=== PATIENT | female | born 1950 | race African-American/Black ===

== ENCOUNTER 2020-12-23 23:03 | Emergency (ER) | payer OTHER ==
--- NOTE | 2020-12-24 00:27 | ER ---
Nurse's Notes [facility] Name: Pari Nicole Age: 70 yrs Sex: Female : 1950 Arrival Date: 12/23/2020 Time: 23:06 Bed 13 Private MD: Diagnosis: Strain of muscle, fascia and tendon at neck level;Essential (primary) hypertension Presentation: 12/23 09:00 Onset of symptoms was December 23, 2020. dc2 23:19 Chief complaint: Patient states: pt states she has been feeling like her BP is elevated bb intermittently today it was in the 160s systolic she has been feeling like she is throbbing all over. Coronavirus screen: At this time, the client does not indicate any symptoms associated with coronavirus-19. Ebola Screen: No symptoms or risks identified at this time. Initial Sepsis Screen: Does the patient meet any 2 criteria? No. Patient's initial sepsis screen is negative. Does the patient have a suspected source of infection? No. Patient's initial sepsis screen is negative. 23:19 Method Of Arrival: Ambulatory bb 23:30 Acuity: YELENA 4 dc2 23:30 Risk Assessment: Do you want to hurt yourself or someone else? Patient reports no dc2 desire to harm self or others. 12/24 03:48 Onset of symptoms was December 23, 2020 at 09:00. Activity prior to arrival: Pt woke up dc2 with neck pain, thinks she slept on it wrong. Triage Assessment: 12/23 23:30 General: Behavior is. dc2 12/24 00:10 Pain:. 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 - Social history:: Smoking status: Patient denies any tobacco usage or history of. Screenin:30 Abuse screen: Denies threats or abuse. Denies injuries from another. Nutritional dc2 screening: No deficits noted. Tuberculosis screening: No symptoms or risk factors identified. Fall Risk None identified. No fall in past 12 months (0 pts). Assessment: 23:30 General: Appears in no apparent distress. comfortable, well groomed, Laughing and dc2 talking with female at side. . 23:30 Pain: Denies pain. Neuro: No deficits noted. Denies blurred vision numbness headache dc2 photophobia. Cardiovascular: No deficits noted. Heart tones present Capillary refill fingers. Respiratory: No deficits noted. Breath sounds are clear bilaterally. GI: No deficits noted. No signs and/or symptoms were reported involving the gastrointestinal system. Bowel sounds present X 4 quads. : No signs and/or symptoms were reported regarding the genitourinary system. Derm: No deficits noted. No signs and/or symptoms reported regarding the dermatologic system. Musculoskeletal: No deficits noted. No signs and/or symptoms reported regarding the musculoskeletal system. 23:50 Reassessment: When making rounds, pt co right sided neck pain ( first of hearing this ) dc2 states thinks she slept on it wrong way and has been sore. NO OTC meds attempted. 12/24 00:25 Reassessment: Patient is alert, oriented x 3, equal unlabored respirations, skin bb warm/dry/pink. pt states she is feeling better the pain in her neck has gone from a 10 to a 5. Vital Signs: 12/23 23:19 BP 162 / 86; Pulse 76; Resp 16 S; Temp 98.6(O); Pulse Ox 99% on R/A; Weight 89.81 kg bb (R); Height 5 ft. 6 in. (167.64 cm) (R); Pain 0/10; 12/24 00:30 BP 146 / 81; Pulse 56; Resp 17; Pulse Ox 100% on R/A; Pain 3/10; dc2 12/23 23:19 Body Mass Index 31.96 (89.81 kg, 167.64 cm) ED Course: 12/23 23:06 Patient arrived in ED. bp1 23:21 Arm band placed on Patient placed in an exam room, on a stretcher. EKG completed in triage. Results shown to MD. 23:30 Kendal Mclaughlin MD is Attending Physician. sp3 23:30 Aysha Yo RN is Primary Nurse. dc2 23:30 Patient has correct armband on for positive identification. Bed in low position. Call dc2 light in reach. Side rails up X 1. 12/24 00:45 No provider procedures requiring assistance completed. dc2 00:45 Patient did not have IV access during this emergency room visit. dc2 00:55 Triage completed. dc2 Administered Medications: 00:13 Drug: Ketorolac 60 mg Route: IM; Site: left gluteus; bb 00:25 Follow up: Response: No adverse reaction; Pain is decreased bb 00:47 Follow up: Response: Pain is decreased dc2 Outcome: 00:27 Discharge ordered by . sp3 00:45 Discharged to home ambulatory. dc2 00:45 Condition: stable 00:45 Discharge instructions given to patient, Instructed on discharge instructions, follow up and referral plans. Demonstrated understanding of instructions, follow-up care, medications, Prescriptions given X 1. 00:55 Patient left the ED. dc2 Signatures: Bella Veronica RN RN bb Porsche Huffman Setul, MD MD sp3 Aysha Yo RN RN dc2 Corrections: (The following items were deleted from the chart) 03:42 03:42 No provider procedures requiring assistance completed. dc2 dc2
--- NOTE | 2020-12-24 00:27 | EDPHYS ---
Physician Documentation [facility] Name: Pari Nicole Age: 70 yrs Sex: Female : 1950 Arrival Date: 12/23/2020 Time: 23:06 Bed 13 Private MD: ED Physician Kendal Mclaughlin HPI: 12/24 00:15 This 70 yrs old Black Female presents to ER via Ambulatory with complaints of High sp3 Blood Pressure. 00:15 62-year-old female who presents to the ED for right-sided sternocleidomastoid neck pain sp3 from "sleeping on it wrong" and elevated blood pressure to 160 systolic this morning prior to arrival. Patient has no headache, neck pain, chest pain, shortness of breath, back pain, abdominal pain, nausea, vomiting, diarrhea, syncope, neurological symptoms, known sick contacts, fever, URI symptoms, any other review of systems at this time. Remainder of ROS are negative. Neck muscle pain is worse when she moves her neck.. 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 - Social history:: Smoking status: Patient denies any tobacco usage or history of. ROS: 12/24 00:16 Constitutional: Negative for fever, chills, and weight loss, Eyes: Negative for injury, sp3 pain, redness, and discharge, ENT: Negative for injury, pain, and discharge, Cardiovascular: Negative for chest pain, palpitations, and edema, Respiratory: Negative for shortness of breath, cough, wheezing, and pleuritic chest pain, Abdomen/GI: Negative for abdominal pain, nausea, vomiting, diarrhea, and constipation, Back: Negative for injury and pain, MS/Extremity: Negative for injury and deformity, Skin: Negative for injury, rash, and discoloration, Neuro: Negative for headache, weakness, numbness, tingling, and seizure, Psych: Negative for depression, anxiety, suicide ideation, homicidal ideation, and hallucinations, Allergy/Immunology: Negative for hives, rash, and allergies, Hematologic/Lymphatic: Negative for swollen nodes, abnormal bleeding, and unusual bruising. All other systems are negative. Exam: 00:17 Constitutional: This is a well developed, well nourished patient who is awake, alert, sp3 and in no acute distress. Head/Face: Normocephalic, atraumatic. Eyes: Pupils equal round and reactive to light, extra-ocular motions intact. Lids and lashes normal. Conjunctiva and sclera are non-icteric and not injected. Cornea within normal limits. Periorbital areas with no swelling, redness, or edema. Chest/axilla: Normal chest wall appearance and motion. Nontender with no deformity. No lesions are appreciated. Cardiovascular: Regular rate and rhythm with a normal S1 and S2. No gallops, murmurs, or rubs. Normal PMI, no JVD. No pulse deficits. Respiratory: Lungs have equal breath sounds bilaterally, clear to auscultation and percussion. No rales, rhonchi or wheezes noted. No increased work of breathing, no retractions or nasal flaring. Abdomen/GI: Soft, non-tender, with normal bowel sounds. No distension or tympany. No guarding or rebound. No evidence of tenderness throughout. Back: No spinal tenderness. No costovertebral tenderness. Full range of motion. Skin: Warm, dry with normal turgor. Normal color with no rashes, no lesions, and no evidence of cellulitis. MS/ Extremity: Pulses equal, no cyanosis. Neurovascular intact. Full, normal range of motion. Neuro: Awake and alert, GCS 15, oriented to person, place, time, and situation. Cranial nerves II-XII grossly intact. Motor strength 5/5 in all extremities. Sensory grossly intact. Cerebellar exam normal. Normal gait. Psych: Awake, alert, with orientation to person, place and time. Behavior, mood, and affect are within normal limits. 00:17 Neck: Patient has pain to the trapezius muscle and posterior aspect of the sternocleidomastoid muscle. No carotid bruit or pulse deficit is noted.. 00:26 ECG was reviewed by the Attending Physician. EKG demonstrates normal sinus rhythm at 60 sp3 bpm with normal intervals normal QRS normal axis nonspecific ST/T changes with inferior T wave in lead III isolated without evidence of ischemia. Vital Signs: 12/23 23:19 BP 162 / 86; Pulse 76; Resp 16 S; Temp 98.6(O); Pulse Ox 99% on R/A; Weight 89.81 kg bb (R); Height 5 ft. 6 in. (167.64 cm) (R); Pain 0/10; 12/24 00:30 BP 146 / 81; Pulse 56; Resp 17; Pulse Ox 100% on R/A; Pain 3/10; dc2 12/23 23:19 Body Mass Index 31.96 (89.81 kg, 167.64 cm) bb MDM: 00:06 Patient medically screened. sp3 00:17 Data reviewed: vital signs, nurses notes. ED course: Will obtain EKG and administer sp3 ketorolac 60 mg IM. I am not highly suspicious for acute coronary syndrome, pneumonia, pulmonary embolism, pneumothorax, thoracic dissection, any other critical thoracic or cervical issue. Blood pressure is already at 148/80 without any intervention. Patient to follow-up with PCP regarding her hypertension.. 12/23 23:54 Order name: EKG; Complete Time: 23:55 bb 12/23 23:54 Order name: EKG - Nurse/Tech; Complete Time: 00:25 bb Administered Medications: 00:13 Drug: Ketorolac 60 mg Route: IM; Site: left gluteus; bb 00:25 Follow up: Response: No adverse reaction; Pain is decreased bb 00:47 Follow up: Response: Pain is decreased dc2 Disposition Summary: 12/24/20 00:27 Discharge Ordered Location: Home sp3 Condition: Stable sp3 Diagnosis - Strain of muscle, fascia and tendon at neck level sp3 - Essential (primary) hypertension sp3 Discharge Instructions: - Discharge Summary Sheet sp3 - Hypertension, Adult sp3 - Muscle Strain sp3 Forms: - Medication Reconciliation Form sp3 - Thank You Letter sp3 - Antibiotic Education sp3 - Prescription Opioid Use sp3 Prescriptions: - Mobic 7.5 mg Oral Tablet - take 1 tablet by ORAL route once daily take with food; 20 tablet; Refills: 0, sp3 Product Selection Permitted Signatures: Bella Veronica RN RN bb Kendal Mclaughlin MD MD sp3 Srinath, Aysha MARIE dc2
[2020-12-24] MEDS ORDERED: KETOROLAC 30 MG/ML INJ ONE (01:07)
[2020-12-24 01:37] VITALS: TEMP 98.6
[2020-12-24 01:39] VITALS: BP 146/81; O2SAT 100
--- OUTSIDE RECORDS SUMMARY | 2021-01-05 03:55 | XMS REPORT | Continuity of Care Document ---
:1950 Author Organization [facility] t Address [address] [place] [address] Care Team Providers Name Role Phone Anil PABLO, A Primary Care Physician Krys Shoemaker Attending Clinician Unavailable Cyndi MA Attending Clinician Unavailable Anil PABLO, A Attending Clinician ANATOLY ISBELL Attending Clinician Unavailable Nurse, Pob Immunization Attending Clinician Unavailable Anatoly Isbell DO Attending Clinician Lab, - Db Attending Clinician Unavailable Fara Perdomo MD Attending Clinician Doctor Unassigned, Name Attending Clinician Unavailable FARA PERDOMO Attending Clinician Unavailable Krys Shoemaker Admitting Clinician Unavailable Payers Payer Name Policy Type Policy Number Effective Date Expiration Date S ource [employer] MEDICARE PPO [id number] 2017 00:00:00 Problems Condition Condition Condition Status Onset Resolution Last Treating Co mments Source Name Details Category Date Date Treatment Clinician Date Primary Primary Disease Active Last [facility] osteoarthr osteoarthr 8-24 [facility] itis of itis of 00:00: t & Plan: both knees both knees 00 Formattin g of this note might be different from the original. Referred to Dr. Ortez for evaluatio n for left total knee arthropla sty. Patient verbalize qamar edward. Acute pain Acute pain Disease Active Last U T of left of left 09-18 [facility] h knee knee 00:00: t & Plan: 00 Formattin g of this note might be different from the original. Insert patient is applied bupivacai ne 0.5% 3 mL with 80 mg/mL of methylpre dnisolone which was also patient's applied based on her previous medicatio n that she has found that has done well for her. Follow-up as needed. Prinzmetal Prinzmetal Disease Active [facility] Allergic Allergic Disease Active [facility] Anxiety Anxiety Disease Active Univers [facility] Hypertensi Hypertensi Disease Active U nivers on on [facility] Localized Localized Problem Active Uni vers osteoarthr osteoarthr it y of itis of [facility] both knees both knees Ph ysici ans Edema Edema Problem Active Univers y [facility] Physici ans Swelling Swelling Problem Active [facility] Allergies, Adverse Reactions, Alerts Allergy Allergy Status Severity Reaction(s) Onset Inactive Treating Comm ents Source Name Type Date Date Clinician Adhesive Drug Active Unknown 2018-02 [facility] Tape Allergy 03-27 Health 00:00: 00 No Known DA Active U 2006-02 [facility] Contrast [place] Allergie 00:00: Orthope [facility] 00 dic [facility] No Known DA Active U 2006-02 [facility] Drug [place] Allergie 00:00: Orthope s 00 dic Hospita [facility] No Known DA Active U 2006-02 [facility] Food [place] Allergie 00:00: Orthope s 00 dic Hospita l No Known DA Active U 2006-02 [facility] Other [place] Allergie 00:00: Orthope s 00 dic Hospita l No Known DA Active U 2002-02 [facility] Drug 0- [place] Intolera 00:00: Orthope nces 00 dic Hospita l NO KNOWN Drug Active Univers ALLERGIE Class ity [facility] Family History Family Member Diagnosis Comments Start Date Stop Date Source Father [facility] Phys[facility] ns Father Family history of Univers ity [facility] hypertension Physicians Father Family history of Univers ity of [place] myocardial infarction Phy sicians Social History Social Habit Start Date Stop Date Quantity Comments Source Exposure to Not sure University of SARS-CoV-2 [place] [facility] (event) Branch History Replaced by [facility] Alcohol Std Drinks History Replaced by [facility] Alcohol Binge Tobacco use and 2020-10-16 2020-10-16 Never used [facility] exposure 00:00:00 00:00:00 Alcohol intake 2020-10-16 2020-10-16 Lifetime [facility] 00:00:00 00:00:00 non-drinker (finding) History [facility] 2020-09-18 2020-09-18 1 [facility] Alcohol Frequency 00:00:00 00:00:00 Sex [birth year] [facility] 00:00:00 00:00:00 Smoking Status Start Date Stop Date Source Never smoker [facility] Medications Ordered Filled Start Stop Current Ordering Indication Dosage Frequency Signature Comments Components Source Medication Medication Date Date Medication? Clinician (SIG) Name Name nitroglycer 2020-[address] 0[address]4 U nivers in 0.4 mg 0-25 mg under ity of sublingual 15:33: the tongue [place] tablet 54 every 5 Medical (five) Branch minutes as needed for Chest pain. nitroglycer 2020-[address] 0.4 U nivers in 0.4 mg 0-25 mg under ity of sublingual 15:33: the tongue [place] tablet 54 every 5 Medical (five) Branch minutes as needed for Chest pain. nitroglycer 2020-[address] 0.4 U nivers in 0.4 mg 0-25 mg under ity of sublingual 15:33: the tongue [place] tablet 54 every 5 Medical (five) Branch minutes as needed for Chest pain. nitroglycer 2020-[address] 0.4 U nivers in 0.4 mg 0-25 mg under ity of sublingual 15:33: the tongue [place] tablet 54 every 5 Medical (five) Branch minutes as needed for Chest pain. nitroglycer 2020-[address] 0.4 U nivers in 0.4 mg 0-25 mg under ity of sublingual 15:33: the tongue [place] tablet 54 every 5 Medical (five) Branch minutes as needed for Chest pain. losartan 50 2020-02 Yes Univer s mg tablet 0-19 ity of 00:00: Medical Branch losartan 50 2020-02 Yes Univer s mg tablet 0-19 ity of 00:00: Medical Branch losartan 50 2020-02 Yes Univer s mg tablet 0-19 ity of 00:00: Medical Branch losartan 50 2020-02 Yes Univer s mg tablet 0-19 ity of 00:00: Medical Branch losartan 50 2020-02 Yes Univer s mg tablet 0-19 ity of 00:00: Medical Branch metoprolol 2020-0 Yes 1{tbl} Take 1 [facility] tartrate 7-27 tablet by Health (Lopressor) 19:55: mouth. 100 MG 04 tablet metoprolol 2020-0 Yes 1{tbl} Take 1 [place] tartrate 7-27 tablet by Health (Lopressor) 19:55: mouth. 100 MG 04 tablet olmesartan 2020-0 Yes 20mg Take 20 mg U nivers 20 mg 6-28 by mouth ity of tablet 00:00: daily. [facility] olmesartan 2020-0 Yes 20mg Take 20 mg U nivers 20 mg 6-28 by mouth ity of tablet 00:00: daily. [facility] olmesartan 2020-0 Yes 20mg Take 20 mg U nivers 20 mg 6-28 by mouth ity of tablet 00:00: daily. [facility] olmesartan 2020-0 Yes 20mg Take 20 mg U nivers 20 mg 6-28 by mouth ity of tablet 00:00: daily. [facility] olmesartan 2020-0 Yes 20mg Take 20 mg U nivers 20 mg 6-28 by mouth ity of tablet 00:00: daily. [address] olmesartan 1-0 Yes 20mg QD Take 20 mg U T (BENIcar) 6-28 by mouth 1 Heal th 20 MG 00:00: (one) time tablet 00 each day. olmesartan 2020-0 Yes 20mg QD Take 20 mg U T (BENIcar) 6-28 by mouth 1 Heal th 20 MG 00:00: (one) time tablet 00 each day. triamcinolo Yes [id number] Apply to Univers ne 0.025 % 3-11 area(s) 2 ity of cream 00:00: (two) [place] 00 times Medical daily. Branch fluticasone Yes [id number] 2{spray Use 2 Univers propionate 3-11 } Sprays in ity of 50 00:00: each [place] mcg/actuati 00 nostril Medic al on nasal daily. Branch spray loratadine Yes [id number] 10mg Take 1 U nivers 10 mg 3-11 tablet by ity of tablet 00:00: mouth [place] 00 daily. Medical Branch triamcinolo Yes [id number] Apply to Univers ne 0.025 % 3-11 area(s) 2 ity of cream 00:00: (two) [place] 00 times Medical daily. Branch fluticasone Yes [id number] 2{spray Use 2 Univers propionate 3-11 } Sprays in ity of 50 00:00: each [place] mcg/actuati 00 nostril Medic al on nasal daily. Branch spray loratadine Yes [id number] 10mg Take 1 U nivers 10 mg 3-11 tablet by ity of tablet 00:00: mouth [place] 00 daily. Medical Branch triamcinolo Yes [id number] Apply to Univers ne 0.025 % 3-11 area(s) 2 ity of cream 00:00: (two) [place] 00 times Medical daily. Branch fluticasone Yes [id number] 2{spray Use 2 Univers propionate 3-11 } Sprays in ity of 50 00:00: each [place] mcg/actuati 00 nostril Medic al on nasal daily. Branch spray loratadine Yes [id number] 10mg Take 1 U nivers 10 mg 3-11 tablet by ity of tablet 00:00: mouth [place] 00 daily. Medical Branch triamcinolo Yes [id number] Apply to Univers ne 0.025 % 3-11 area(s) 2 ity of cream 00:00: (two) [place] 00 times Medical daily. Branch fluticasone Yes [id number] 2{spray Use 2 Univers propionate 3-11 } Sprays in ity of 50 00:00: each [place] mcg/actuati 00 nostril Medic al on nasal daily. Branch spray loratadine Yes [id number] 10mg Take 1 U nivers 10 mg 3-11 tablet by ity of tablet 00:00: mouth 00 daily. Medical Branch triamcinolo Yes [id number] Apply to Univers ne 0.025 % 3-11 area(s) 2 ity of cream 00:00: (two) [place] 00 times Medical daily. Branch fluticasone Yes [id number] 2{spray Use 2 Univers propionate 3-11 } Sprays in ity of 50 00:00: each [place] mcg/actuati 00 nostril Medic al on nasal daily. Branch spray loratadine Yes [id number] 10mg Take 1 U nivers 10 mg 3-11 tablet by ity of tablet 00:00: mouth [place] 00 daily. Medical Branch metoprolol Yes TK 1 T PO Un breonna succinate 9-04 D. ity of XL 100 mg 00:00: [place] 24 hr 00 Medical tablet Branch metoprolol Yes TK 1 T PO Un breonna succinate 9-04 D. ity of XL 100 mg 00:00: [place] 24 hr Medical tablet Branch metoprolol Yes TK 1 T PO Un breonna succinate 9-04 D. ity of XL 100 mg 00:00: [place] 24 hr Medical tablet Branch metoprolol Yes TK 1 T PO Un breonna succinate 9-04 D. ity of XL 100 mg 00:00: [place] 24 hr Medical tablet Branch metoprolol Yes TK 1 T PO Un breonna succinate 9-04 D. ity of XL 100 mg 00:00: [place] 24 hr Medical tablet Branch Metoprolol Metoprolol 2014-02 Yes JUAN DAVID 1 QD TAKE 1 Univers Succinate Succinate 0-20 RICHEY-BAR TABLET ity of ER 50 MG ER 50 MG 00:00: RE M.D. DAILY. [place] Oral Tablet Oral Tablet 00 P hysici Extended Extended ans Release 24 Release 24 Hour Hour Premarin Premarin 2014-02 Yes JUAN DAVID 1 QD TAKE 1 Un breonna 0.9 MG Oral 0.9 MG Oral 0-20 RICHEY-BAR TABLET ity of Tablet Tablet 00:00: [place] M.[place]. [place]ILY. [place] 00 Physici ans Monovisc 88 Monovisc 88 Yes JUAN DAVID Inject one Univers MG/4ML MG/4ML 11-03 RICHEY-BAR dose ity o f Intra-artic Intra-artic 00:00: RE [place] lu 00 Physici Solution Solution ans Prefilled Prefilled Syringe Syringe Immunizations Ordered Filled Immunization Date Status Comments [facility] e Immunization Name Name SARS-COV-2 COVID-19 2020-12-25 Completed Unive rsity of MODERNA BOOSTER 00:00:00 [facility] VACCINE Branch SARS-COV-2 COVID-19 2020-12-25 Completed Unive rsity of MODERNA BOOSTER 00:00:00 [facility] VACCINE Branch Influenza High Dose 2020-10-24 Completed Unive rsity of 00:00:00 [facility] Influenza High Dose 2020-10-24 Completed Unive rsity of 00:00:00 [facility] Influenza High Dose 2020-10-24 Completed Unive rsity of 00:00:00 [facility] Influenza High Dose 2020-10-24 Completed Unive rsity of 00:00:00 [facility] Influenza High Dose 2020-10-24 Completed Unive rsity of 00:00:00 [facility] SARS-COV-2 COVID-19 2020-04-28 Completed Unive rsity of MODERNA VACCINE 00:00:00 [facility] SARS-COV-2 COVID-19 2020-04-28 Completed Unive rsity of MODERNA VACCINE 00:00:00 [facility] SARS-COV-2 COVID-19 2020-04-28 Completed Unive rsity of MODERNA VACCINE 00:00:00 [facility] Branch SARS-COV-2 COVID-19 2020-04-28 Completed Unive rsity of MODERNA VACCINE 00:00:00 [facility] SARS-COV-2 COVID-19 2020-04-28 Completed Unive rsity of MODERNA VACCINE 00:00:00 [facility] SARS-COV-2 COVID-19 2020-03-31 Completed Unive rsity of MODERNA VACCINE 00:00:00 [facility] SARS-COV-2 COVID-19 2020-03-31 Completed Unive rsity of MODERNA VACCINE 00:00:00 [facility] SARS-COV-2 COVID-19 2020-03-31 Completed Unive rsity of MODERNA VACCINE 00:00:00 [facility] SARS-COV-2 COVID-19 2020-03-31 Completed Unive rsity of MODERNA VACCINE 00:00:00 [facility] SARS-COV-2 COVID-19 2020-03-31 Completed Unive rsity of MODERNA VACCINE 00:00:00 [facility] Pneumococcal 13 2018-11-09 Completed Universit y of Conjugate, PCV13 00:00:00 [facility] dical (Prevnar 13) Branch Zoster Vaccine 2018-11-09 Completed University of Recombinant 00:00:00 [facility] Pneumococcal 13 2018-11-09 Completed Universit y of Conjugate, PCV13 00:00:00 [facility] dical (Prevnar 13) Branch Zoster Vaccine 2018-11-09 Completed University of Recombinant 00:00:00 [facility] Pneumococcal 13 2018-11-09 Completed Universit y of Conjugate, PCV13 00:00:00 [facility] dical (Prevnar 13) Branch Zoster Vaccine 2018-11-09 Completed University of Recombinant 00:00:00 [facility] Pneumococcal 13 2018-11-09 Completed Universit y of Conjugate, PCV13 00:00:00 [facility] dical (Prevnar 13) Branch Zoster Vaccine 2018-11-09 Completed University of Recombinant 00:00:00 [facility] Pneumococcal 13 2018-11-09 Completed Universit y of Conjugate, PCV13 00:00:00 [facility] dical (Prevnar 13) Branch Zoster Vaccine 2018-11-09 Completed University of Recombinant 00:00:00 [facility] Vital Signs Vital Name Observation Time Observation Value Comments Source Systolic blood 2020-12-17 20:33:00 144 mm[Hg] Univer sity of [facility] Diastolic blood 2020-12-17 20:33:00 80 mm[Hg] Unive rsity of [facility] Heart rate 2020-12-17 20:33:00 73 /min [facility] Body height 2020-12-17 20:32:00 165.1 cm [facility] Body weight 2020-12-17 20:32:00 91.627 kg [facility] BMI 2020-12-17 20:32:00 33.61 kg/m2 [facility] Oxygen saturation 2020-12-17 20:32:00 98 /min [facility] in Arterial blood Medical Br anch by Pulse oximetry Procedures Procedure Date / Time Performing Clinician Source Performed SARS-COV-2 COVID-19 2020-12-25 14:11:49 Doctor Unassigned, [facility] VACCINE BOOSTER,0.25ML,IM [place] Medica l Branch (MODERNA) CBC (H/H, RBC, 2020-12-24 13:04:00 Ling Ma [facility] INDICES,$WBC, PLT)-Q Medical [facility] [place] ARTHROCENTESIS 2020-09-18 20:10:23 Pan Lee [place] He alth ASPIR&/INJ MAJOR JT/BURSA W/O US US Extremity lower venous 2018-12-13 00:00[id number] Physicians [U] XRAY KNEE 3 VWS LEFT 2018-12-10 00:00:00 [facility] [id number] Physicians History of Tubal Ligation [facility] Physicians History of Hysterectomy [facility] Physicians History of Breast Surgery [facility] Lumpectomy Physicians History of Bunion [facility] Correction With Physicians Metatarsal Osteotomy Encounters Start End Encounter Admission Attending Care Care Encounter Source Date/Time Date/Time Type Type Clinicians Facility Department ID 2020-11-13 Inpatient ASHUTOSH Persaud ADMI [id number] [facility] 09:00:00 Caro [id number] [place] [facility] 2020-11-13 Inpatient ASHUTOSH Persaud ADMI [id number] [facility] 09:00:00 Caro Webber [place] [facility] 2020-10-23 Inpatient ASHUTOSH Persaud ADMI [id number] [facility] 09:15:00 Caro [id number] [place] [facility] 2020-10-16 Outpatient [facility] [id number] [place] 11:32:42 Health 2020-09-17 Outpatient [facility] [id number] [place] 16:44:43 Health 2021-06-17 2021-06-17 Outpatient Aurora MA [facility] [id number] Q-20 Univers 08:45:00 08:45:00 LING [id number] ity o f [facility] 2021-01-21 2021-01-21 [facility] [id number] Q-20 Univers 09:40:00 09:40:00 WONDIFUL [id number] ity o f [facility] 2020-12-28 2020-12-28 Telephone Anil [facility] [id number] Univers 00:00:00 00:00:00 Wondiful A HEALTH [id number] ity of [place] [id number] [place] SAI?BLEA [phone] Pa chungnancy [address] [place] MEDICAL OFFICE [facility] 2020-12-25 2020-12-25 Outpatient R AKILAH [facility] [id number] Univers 09:30:00 09:30:00 BUTCH napoles [facility] 2020-12-25 2020-12-25 Imm/Inj Nurse, Adc Pob Immunization [facility] 1.2.840.114 [id number] Univers 09:09:07 09:11:08 Visit Butch Isbell 350.1.13 .10 ity [facility] [id number] [place] PROFESS[place] [phone] Pa armand [facility] [address] [facility] 2020-12-24 2020-12-24 Computer Engineering Technician Lab, Ang - Db [facility] 1.2.840.1 [id number] Univers 07:44:02 07:59:02 Visit Ling Ma HEALTH 350.1.13.1 0 ity of [place] [id number] [place] SAI?BLEA [id number] Pa dicnancy [address] [place] MEDICAL OFFICE [facility] 2020-12-24 2020-12-24 Outpatient [facility] [id number] Univers 07:45:00 07:45:00 WONDIFUL ity o f [facility] 2020-12-24 2020-12-24 Orders WINSTON Ma [id number] Univers 00:00:00 00:00:00 Only Wondiful A JAE [id number] ity of [facility] 4.2.7.2.686 [place] [phone] [address] 2020-12-21 2020-12-21 Outpatient R [facility] [id number] Univers 08:15:00 08:15:00 [id number] ity of [facility] 2020-12-21 2020-12-21 Outpatient R [facility] [id number] Univers 08:15:00 08:15:00 WONDIFUL ity o [facility] 2020-12-17 2020-12-17 [facility] 1.2.840.114 [id number] Univers 14:58:31 16:10:37 [facility] [id number] [facility] 4.2.7.2.686 [place] SAI?BLEA [phone] [address] MEDICAL OFFICE BUILDING 2020-12-17 2020-12-17 Outpatient [facility] [id number] Q-20 Univers 15:00:00 15:00:00 WONDIFUL [id number] ity o [facility] 2020-12-17 2020-12-17 Outpatient [facility] [id number] Univers 15:00:00 15:00:00 WONDIFUL ity o [facility] 2020-10-16 2020-10-16 [facility] [id number] [place] 11:14:40 11:29:40 Visit ABILIO Perdomo 350.1.13.58 H [facility] [id number] [address] [id number] [id number] 2020-09-18 2020-09-18 [facility] 1.2.840.114 [id number] [place] 14:49:19 15:15:28 Visit ABILIO Perdomo 350.1.13.58 H [facility] 9.2.7.2.686 [address] [phone] [id number] 2020-06-29 2020-06-29 Orders Doctor WINSTON 1.2.840.114 [id number] 00:00:00 00:00:00 Only Unassigned, JAE 350.1.13.10 [place] [facility] 4.2.7.2.686 [id number] 2020-05-03 2020-05-03 Office Anil [facility] 1.2.840.114 [id number] 08:45:59 10:06:08 Visit Ling Fink Yebhi 350.1.13.10 [place] 4.2.7.2.686 bogdanjoseline [phone] nal [address] 2019-10-11 2019-10-11 Outpatient [facility] [id number] 09:30:00 09:30:00 [facility] 2018-12-20 2018-12-20 Appointmen FARA ALVES [facility] [id number] Univers 13:30:00 13:30:00 t; FARA PERDOMO, - [place], [place] Carol Ann FERRER M.D. ans 2018-12-13 2018-12-13 Appointmen FARA ALVES [facility] [id number] Univers 13:15:00 13:15:00 t; FARA PERDOMO, - [place], [place] Carol Ann FERRER M.D. ans Results Test Description Test Time Test Comments Results Result Comments Source CBC (H/H, RBC, INDICES,$WBC, PLT)-Q 2020-12-25 08:00:00 Test Item Value Reference Range Interpretation Comme nts WHITE BLOOD CELL See_Comment [Automated message] The COUNT-Q (test code = system which generated this 6690-2) result transmit arabella reference range: 3.8 - 10 .8 Thousand/uL. Th e reference range was not u sed to interpret this result as normal/abnormal . RED BLOOD CELL See_Comment [Automated m essage] The COUNT-Q (test code = system which generated this 789-8) result transmit arabella reference range: 3.80 - 5 .10 Million/uL. The reference range was not u sed to interpret this result as normal/abnormal . HEMOGLOBIN-Q (test 12.6 g/dL 11.7-15.5 code = 718-7) HEMATOCRIT-Q (test 37.7 % 35.0-45.0 code = 4544-3) MCV-Q (test code = 93.8 fL 80.0-100.0 787-2) MCH-Q (test code = 31.3 pg 27.0-33.0 785-6) MCHC-Q (test code = 33.4 g/dL 32.0-36.0 786-4) RDW-Q (test code = 12.6 % 11.0-15.0 788-0) PLATELET COUNT-Q See_Comment [Automated message] The (test code = 777-3) system w [facility] generated this result transmit arabella reference range: 140 - 40 0 Thousand/uL. Th e reference range was not u sed to interpret this result as normal/abnormal . MPV-Q (test code = 10.4 fL 7.5-12.5 776-5) ALEXSANDRA (test code = PERFORMED BY [facility] ALEXSANDRA) [facility] [place]; [address] [place] [id number]; [facility] In[facility]/Asp: L [id number] 20:10:23Andaguila Perdomo MD ? ? 09/18/2020 ?3:17 PML Inj/Asp: L knee on 09/18/2020 3:10 PMIndications: painDetails: 22 G needle, anterolateral approachMedications: (Bupivacaine [facility] number [id number] 3 mL 0.5% bupivacaine patient is applied today. Plus methylprednisolone 80 mg/mL 1 mL ND number [id number] patient supplied)Outcome: tolerated well, no immediate complications (A bandaid was applied.) The patient was counseled not to submerge the site for 24 hours, not to perform strenuous activity for the next 5 days, and if she he or she may notice any signs or symptoms consistent with joint infection or allergic reaction to go to a local emergency room. ?The patient was observed for 15 minutes post procedure and was allowed to be discharged from clinic in their usual state of health.Procedure, treatment alternatives, risks and benefits explained, specific risks discussed. Consent was given by the patient (Written consent obtained and scanned in the chart. ?Risks and benefits discussed with patient.). Immediately prior to procedure a time out was called to verify the correct patient, procedure, equipment, air support control officer and site/side marked as required. Patient was prepped and draped in the usual sterile fashion (ChloraPrep was used to prep the area. ?Ethyl Chloride used for topical anesthesia. ).[facility][U] XRAY KNEE 3 VWS LEFT [id number] 13:40:00Images acquired, not reported on this accession number.[facility]
== END 2020-12-24 00:55 | disposition home or self-care (01) ==
LOC: ER 23:03
DX: S16.1XXA Strain of muscle, fascia and tendon at neck level, initial encounter (principal); I10 Essential (primary) hypertension; F41.9 Anxiety disorder, unspecified
CPT/HCPCS: 93005; 96372; 99283

== ENCOUNTER 2021-08-19 10:24 | Emergency (ER) | payer OTHER ==
--- OUTSIDE RECORDS SUMMARY | 2021-08-19 10:28 | XMS REPORT | Continuity of Care Document ---
:1950 Author Organization [facility] t Address [address] [place] [address] Care Team Providers Name Role Phone CARSON Primary Care Physician Unavailable Krys Shoemaker Attending Clinician Unavailable Manuel PABLO Attending Clinician Jonathan Ott Attending Clinician Jonathan YANG Attending Clinician Unavailable Carson WALL Attending Clinician Lab, - Db Attending Clinician Unavailable CARSON Attending Clinician Unavailable Doctor Unassigned, Name Attending Clinician Unavailable Fara Perdomo MD Attending Clinician Danae Montes MD Attending Clinician RATNA HAYWARD Attending Clinician Unavailable Moriah_Daniel Attending Clinician Unavailable FARA PERDOMO Attending Clinician Unavailable Krys Shoemaker Admitting Clinician Unavailable Kiki Admitting Clinician Unavailable Payers Payer Name Policy Type Policy Number Effective Date Expiration Date Gabe gilmore [employer] MEDICARE PPO [id number] 2017 00:00:00 Problems Condition Condition Condition Status Onset Resolution Last Treating Co mments Source Name Details Category Date Date Treatment Clinician Date Need for Need for Disease Active Unive rs vaccinatio vaccinatio 06-14 it y of n n 00:00: [place] [facility] Puncture Puncture Disease Active Unive rs wound of wound of 06-14 ity of right right 00:00: [place] upper arm, upper arm, 00 Me dical initial initial Branch encounter encounter Encounter Encounter Disease Active Uni vers to to 06-14 [place] of establish establish [place] Mixed Mixed Disease Active 2020-02 Univers hyperlipid hyperlipid 02-28 it y of emia emia 00:00: [place] [facility] Prediabete Prediabete Disease Active 2020-02 U nivers s s 02-28 ity of 00:00: [place] [facility] Branch Primary Primary Disease Active Last UT osteoarthr [...] Last U T of left of left 7-27 [facility] knee knee 00:00: t [...] Prinzmetal Disease Active U nivers angina angina ity of [facility] Allergic Allergic Disease Active Unive rs rhinitis rhinitis ity of [facility] Anxiety Anxiety Disease Active Univers ity of [facility] Hypertensi Hypertensi Disease Active U nivers on on ity of [facility] Localized Localized Problem Active UT osteoarthr osteoarthr Ph ysici itis of itis of ans both knees both knees Edema Edema Problem Active [facility] Phys[facility] ans Swelling Swelling Problem Active UT of calf of calf Physici ans Allergies, Adverse Reactions, Alerts Allergy Allergy Status Severity Reaction(s) Onset Inactive Treating Comm ents Source Name Type Date Date Clinician Adhesive Drug Active Unknown 2018-02 [facility] Tape Allergy 03-27 Health 00:00: 00 No Known DA Active U 2006- [facility] Contrast [place] Allergie 00:00: Orthope s [...] Known DA Active U 2002-02 [facility] Drug 0-06 [place] Intolera 00:00: [facility]ope [facility]ces [facility] NO KNOWN Drug Active Univers ALLERGIE Class ity of S [facility] Family History Family Member Diagnosis Comments Start Date Stop Date Source Father Family history of cardiac [facility] disorder Father Family history of [facility] hypertension Father Family history of [facility] myocardial infarction Social History Social Habit Start Date Stop Date Quantity Comments Source History [facility] Health Alcohol Std Drinks History [facility] Alcohol Binge Exposure to 2021-07-05 2021-07-15 Not sure [facility]-CoV-2 00:00:00 11:40:00 [place] [facility] (event) [facility] Tobacco use and 2020-10-16 2020-10-16 Never used [place] [facility] exposure 00:00:00 00:00:00 Alcohol intake 2020-10-16 2020-10-16 Lifetime [place] [facility] 00:00:00 00:00:00 non-drinker (finding) History [facility] 2020-09-18 2020-09-18 1 [place] [facility] Alcohol Frequency 00:00:00 00:00:00 Sex [birth year] [place] [facility] 00:00:00 00:00:00 Smoking Status Start Date Stop Date Source Never smoker [facility] Branch Medications Ordered Filled Start Stop Current Ordering Indication Dosage Frequency Signature Comments Components Source Medication Medication Date Date Medication? Clinician (SIG) Name Name ketorolac 2021- No [id number] 30mg Un breonna (TORADOL) 07-15 ity of injection 22:45: 21:37 [place] 30 mg 00 :00 Medical Branch ketorolac 2021- No [id number] 30mg 30 mg, Univers (TORADOL) 07-15 Intramuscu ity of injection 22:45: 21:37 [place], ONCE, [place] 30 mg 00 :00 1 dose, On Medical Mon Branch 07/15/21 at 1745, Routine
adjunct communications faculty member approving Restricted medication : ANNA JACKSON cyclobenzap Yes [id number] 5mg Take 1 Univers rine 5 mg 07-15 tablet by ity o f tablet 00:00: mouth at [place] 00 bedtime. Medical Branch mupirocin 2 2021- Yes [id number] Apply to Univers % ointment 06-14 [id number] area(s) 3 i ty of 00:00: 04:59 (three) [place] 00 :00 times Medical daily for Branch 14 days. mupirocin 2 2021- Yes [id number] Apply to Univers % ointment 06-14 [id number] area(s) 3 i ty of 00:00: 04:59 (three) [place] 00 :00 times Medical daily for Branch 14 days. mupirocin 2 2021- Yes [id number] Apply to Univers % ointment 06-14 [id number] area(s) 3 i ty of 00:00: 04:59 (three) [place] 00 :00 times Medical daily for Branch 14 days. mupirocin 2 2021- Yes [id number] Apply to Univers % ointment 06-14 [id number] area(s) 3 i ty of 00:00: 04:59 (three) [place] 00 :00 times Medical daily for Branch 14 days. mupirocin 2 2021- Yes [id number] Apply to Univers % ointment 06-14 [id number] area(s) 3 i ty of 00:00: 04:59 (three) [place] 00 :00 times Medical daily for Branch 14 days. mupirocin 2 2021- Yes [id number] Apply to Univers % ointment 06-14 [id number] area(s) 3 i ty of 00:00: 04:59 (three) [place] 00 :00 times Medical daily for Branch 14 days. amLODIPine 2022-0 Yes 5mg Take 5 mg Un breonna 5 mg tablet 4-04 by mouth ity of 00:00: daily. [place] [facility] Branch amLODIPine 2022-0 Yes 5mg Take 5 mg Un breonna 5 mg tablet 4-04 by mouth ity of 00:00: daily. [place] [facility] Branch amLODIPine 2022-0 Yes 5mg Take 5 mg Un breonna 5 mg tablet 4-04 by mouth ity of 00:00: daily. [place] [facility] Branch amLODIPine 2022-0 Yes 5mg Take 5 mg Un breonna 5 mg tablet 4-04 by mouth ity of 00:00: daily. [place] [facility] Branch amLODIPine 2022-0 Yes 5mg Take 5 mg Un breonna 5 mg tablet 4-04 by mouth ity of 00:00: daily. [place] [facility] Branch amLODIPine 2022-0 Yes 5mg Take 5 mg Un breonna 5 mg tablet 4-04 by mouth ity of 00:00: daily. [place] [facility] amLODIPine 2022-0 Yes 5mg Take 5 mg Un breonna 5 mg tablet 4-04 by mouth ity of 00:00: daily. [place] [facility] Branch nitroglycer 2020-[address] 0[address]4 U [...] s mg tablet 0-19 ity of 00:00: [place] [facility] losartan 50 2020-02 Yes Univer s mg tablet 0-19 ity of 00:00: [place] [facility] losartan 50 2020-02 Yes Univer s mg tablet 0-19 ity of 00:00: [place] [facility] losartan 50 2020-02 Yes Univer s mg tablet 0-19 ity of 00:00: [place] [facility] losartan 50 2020-02 Yes Univer s mg tablet 0-19 ity of 00:00: [place] [facility] losartan 50 2020-02 Yes Univer s mg tablet 0-19 ity of 00:00: [place] [facility] losartan 50 2020-02 Yes Univer s mg tablet 0-19 ity of 00:00: [place] [facility] metoprolol 1-0 Yes 1{tbl} Take 1 UT tartrate 7-27 tablet by Health (Lopressor) 19:55: mouth. 100 MG 04 tablet metoprolol 2020-0 Yes 1{tbl} Take 1 UT tartrate 7-27 tablet by Health (Lopressor) 19:55: mouth. 100 MG 04 tablet olmesartan 2020-0 Yes 20mg Take 20 mg U nivers 20 mg 6-28 by mouth ity of tablet 00:00: daily. [place] [facility] olmesartan 2021-0 Yes 20mg Take 20 mg U nivers 20 mg 6-28 by mouth ity of tablet 00:00: daily. [place] [facility] olmesartan 1-0 Yes 20mg Take 20 mg U nivers 20 mg 6-28 by mouth ity of tablet 00:00: daily. Medical Branch olmesartan 2021-0 Yes 20mg Take 20 mg U nivers 20 mg 6-28 by mouth ity of tablet 00:00: daily. Medical Branch olmesartan 2021-0 Yes 20mg Take 20 mg U nivers 20 mg 6-28 by mouth ity of tablet 00:00: daily. Medical Branch olmesartan 2021-0 Yes 20mg Take 20 mg U nivers 20 mg 6-28 by mouth ity of tablet 00:00: daily. Medical Branch olmesartan 2021-0 Yes 20mg Take 20 mg U nivers 20 mg 6-28 by mouth ity of tablet 00:00: daily. Medical Branch olmesartan 2021-0 Yes 20mg QD Take 20 mg U T (BENIcar) 6-28 by mouth 1 Heal th 20 MG 00:00: (one) time tablet 00 each day. olmesartan 2020-0 Yes 20mg QD Take 20 mg U T (BENIcar) 6-28 by mouth 1 Heal th 20 MG 00:00: (one) time tablet 00 each day. triamcinolo 2020-0 Yes [id number] Apply to Univers ne 0.025 % 3-11 area(s) 2 ity of cream 00:00: (two) [place] times Medical daily. Branch fluticasone 2020-0 Yes [id number] 2{spray Use 2 Univers propionate 3-11 } Sprays in ity of 50 00:00: each [place] mcg/actuati 00 nostril Medic al on nasal daily. Branch spray loratadine 2020-0 Yes [id number] 10mg Take 1 U nivers 10 mg 3-11 tablet by ity of tablet 00:00: mouth [place] 00 daily. Medical Branch triamcinolo 2020-0 Yes [id number] Apply to Univers ne 0.025 % 3-11 area(s) 2 ity of cream 00:00: (two) [place] 00 times Medical daily. Branch fluticasone 2020-0 Yes [id number] 2{spray Use 2 Univers propionate 3-11 } Sprays in ity of 50 00:00: each [place] mcg/actuati 00 nostril Medic al on nasal daily. Branch spray loratadine 2020-0 Yes [id number] 10mg Take 1 U nivers 10 mg 3-11 tablet by ity of tablet 00:00: mouth [place] 00 daily. Medical Branch triamcinolo Yes [id number] Apply to Univers ne 0.025 % 3-11 area(s) 2 ity of cream 00:00: (two) [place] 00 times Medical daily. Branch fluticasone Yes [id number] 2{spray Use 2 Univers propionate 3-11 } Sprays in ity of 50 00:00: each [place] mcg/actuati 00 nostril Medic al on nasal daily. Branch spray loratadine Yes [id number] 10mg Take 1 U nivers 10 mg 3-11 tablet by ity of tablet 00:00: mouth [place] 00 daily. Medical Branch triamcinolo Yes [id number] Apply to Univers ne 0.025 % 3-11 area(s) 2 ity of cream 00:00: (two) [place] 00 times Medical daily. Branch fluticasone Yes [id number] 2{spray Use 2 Univers propionate 3-11 } Sprays in ity of 50 00:00: each [place] mcg/actuati 00 nostril Medic al on nasal daily. Branch spray loratadine Yes [id number] 10mg Take 1 U nivers 10 mg 3-11 tablet by ity of tablet 00:00: mouth [place] 00 daily. Medical Branch triamcinolo Yes [id number] Apply to Univers ne 0.025 % 3-11 area(s) 2 ity of cream 00:00: (two) [place] 00 times Medical daily. Branch fluticasone Yes [id number] 2{spray Use 2 Univers propionate 3-11 } Sprays in ity of 50 00:00: each [place] mcg/actuati 00 nostril Medic al on nasal daily. Branch spray loratadine 0 Yes [id number] 10mg Take 1 U nivers 10 mg 3-11 tablet by ity of tablet 00:00: mouth [place] 00 daily. Medical Branch triamcinolo Yes [id number] Apply to Univers ne 0.025 % 3-11 area(s) 2 ity of cream 00:00: (two) [place] 00 times Medical daily. Branch fluticasone Yes [id number] 2{spray Use 2 Univers propionate 3-11 } Sprays in ity of 50 00:00: each [place] mcg/actuati 00 nostril Medic al on nasal daily. Branch spray loratadine Yes [id number] 10mg Take 1 U nivers 10 mg 3-11 tablet by ity of tablet 00:00: mouth [place] 00 daily. Medical Branch triamcinolo Yes [id number] Apply to Univers ne 0.025 % 3-11 area(s) 2 ity of cream 00:00: (two) [place] 00 times Medical daily. Branch fluticasone Yes [id number] 2{spray Use 2 Univers propionate 3-11 } Sprays in ity of 50 00:00: each [place] mcg/actuati 00 nostril Medic al on nasal daily. Branch spray loratadine Yes [id number] 10mg Take 1 U nivers 10 mg 3-11 tablet by ity of tablet 00:00: mouth [place] 00 daily. Medical Branch metoprolol Yes TK 1 T PO Un breonna succinate 9-04 D. ity of XL 100 mg 00:00: [place] 24 hr Medical tablet Branch metoprolol Yes TK 1 T PO Un breonna succinate 9-04 D. ity of XL 100 mg 00:00: [place] 24 hr Medical tablet Branch metoprolol Yes TK 1 T PO Un breonna succinate 9-04 D. ity of XL 100 mg 00:00: [place] 24 hr Medical tablet Branch metoprolol Yes TK 1 T PO Un breonna succinate 9-04 D. ity of XL 100 mg 00:00: [place] 24 hr Medical tablet Branch metoprolol Yes TK 1 T PO Un breonna succinate 9-04 D. ity of XL 100 mg 00:00: [place] 24 hr Medical tablet Branch metoprolol Yes TK 1 T PO Un breonna succinate 9-04 D. ity of XL 100 mg 00:00: [place] 24 hr Medical tablet Branch metoprolol 0 Yes TK 1 T PO Un breonna succinate 9-04 D. ity of XL 100 mg 00:00: [place] 24 hr 00 Medical tablet Branch Metoprolol Metoprolol 2014-02 Yes JUAN DAVID 1 QD TAKE 1 UT Succinate Succinate 0-20 RICHEY-BAR TABLET Physici ER 50 MG ER 50 MG 00:00: RE M.D. DAILY. ans Oral Tablet Oral Tablet 00 Extended Extended Release 24 Release 24 Hour Hour Premarin Premarin 2014-02 Yes JUAN DAVID 1 QD TAKE 1 UT 0.9 MG Oral 0.9 MG Oral 0-20 RICHEY-BAR TABLET Physici Tablet Tablet 00:00: RE M.D. DAILY. ans 00 Monovisc 88 Monovisc 88 Yes JUAN DAVID Inject one UT MG/4ML MG/4ML 9-11 RICHEY-BAR dose Physi ci Intra-artic Intra-artic 00:00: RE M.D. ans ular ular 00 Solution Solution Prefilled Prefilled Syringe Syringe Immunizations Ordered Filled Immunization Date Status Comments Sour e Immunization Name Name [facility] 2021-06-14 Completed University of 00:00:00 [facility] TDAP 2021-06-14 Completed University of 00:00:00 [facility] TDAP 2021-06-14 Completed University of 00:00:00 [facility] TDAP 2021-06-14 Completed University of 00:00:00 [facility] TDAP 2021-06-14 Completed University of 00:00:00 [facility] TDAP 2021-06-14 Completed University of 00:00:00 [facility] TDAP 2021-06-14 Completed University of 00:00:00 [facility] SARS-COV-2 COVID-19 2020-12-25 Completed Unive rsity of MODERNA BOOSTER 00:00:00 [facility] [place] [facility] ical VACCINE Branch SARS-COV-2 COVID-19 2020-12-25 Completed Unive rsity of MODERNA BOOSTER 00:00:00 [facility] [place] [facility] ical VACCINE Branch SARS-COV-2 COVID-19 2020-12-25 Completed Unive rsity of MODERNA BOOSTER 00:00:00 [place] [facility] ical VACCINE Branch SARS-COV-2 COVID-19 2020-12-25 Completed Unive rsity of MODERNA BOOSTER 00:00:00 [facility] [place] [facility] ical VACCINE Branch SARS-COV-2 COVID-19 2020-12-25 Completed Unive rsity of MODERNA 0.25ML 00:00:00 [facility] kia BOOSTER VACCINE Branch SARS-COV-2 COVID-19 2020-12-25 Completed Unive rsity of MODERNA 0.25ML 00:00:00 [place] [facility]i kia BOOSTER VACCINE Branch SARS-COV-2 COVID-19 2020-12-25 Completed Unive rsity of MODERNA 0.25ML 00:00:00 [place] Medi kia BOOSTER VACCINE Branch Influenza High Dose 2020-10-24 Completed Unive rsity of 00:00:00 [place] [facility] Influenza High Dose 2020-10-24 Completed Unive rsity of 00:00:00 [place] [facility] Influenza High Dose 2020-10-24 Completed Unive rsity of 00:00:00 [place] [facility] Influenza High Dose 2020-10-24 Completed Unive rsity of 00:00:00 [facility] Branch Influenza High Dose 2020-10-24 Completed Unive rsity of 00:00:00 [facility] Branch Influenza High Dose 2020-10-24 Completed Unive rsity of 00:00:00 [facility] Branch Influenza High Dose 2020-10-24 Completed Unive rsity of 00:00:00 [facility] Branch SARS-COV-2 COVID-19 2020-04-28 Completed Unive rsity of MODERNA VACCINE 00:00:00 [facility] [place] [facility] ical Branch SARS-COV-2 COVID-19 2020-04-28 Completed Unive rsity of MODERNA VACCINE 00:00:00 [place] [facility] ical Branch SARS-COV-2 COVID-19 2020-04-28 Completed Unive rsity of MODERNA VACCINE 00:00:00 [facility] [place] [facility] ical Branch SARS-COV-2 COVID-19 2020-04-28 Completed Unive rsity of MODERNA VACCINE 00:00:00 [place] [facility] ical Branch SARS-COV-2 COVID-19 2020-04-28 Completed Unive rsity of MODERNA VACCINE 00:00:00 [place] [facility] ical Branch SARS-COV-2 COVID-19 2020-04-28 Completed Unive rsity of MODERNA VACCINE 00:00:00 [place] [facility] ical Branch SARS-COV-2 COVID-19 2020-04-28 Completed Unive rsity of MODERNA VACCINE 00:00:00 [facility] [place] [facility] ical Branch SARS-COV-2 COVID-19 2020-03-31 Completed Unive rsity of MODERNA VACCINE 00:00:00 [facility] [place] [facility] ical Branch SARS-COV-2 COVID-19 2020-03-31 Completed Unive rsity of MODERNA VACCINE 00:00:00 [facility] SARS-COV-2 COVID-19 2020-03-31 Completed Unive rsity of MODERNA VACCINE 00:00:00 [facility] SARS-COV-2 COVID-19 2020-03-31 Completed Unive rsity of MODERNA VACCINE 00:00:00 [facility] SARS-COV-2 COVID-19 2020-03-31 Completed Unive rsity of MODERNA VACCINE 00:00:00 [facility] SARS-COV-2 COVID-19 2020-03-31 Completed Unive rsity of MODERNA VACCINE 00:00:00 [facility] SARS-COV-2 COVID-19 2020-03-31 Completed Unive rsity of MODERNA VACCINE 00:00:00 [facility] Pneumococcal 13 2018-11-09 Completed Universit y of Conjugate, PCV13 00:00:00 [facility] dical (Prevnar 13) Branch Zoster Vaccine 2018-11-09 Completed University of Recombinant 00:00:00 [facility] Pneumococcal 13 2018-11-09 Completed Universit y of Conjugate, PCV13 00:00:00 [facility] dical (Prevnar 13) Branch Zoster Vaccine 2018-11-09 Completed University of Recombinant 00:00:00 [facility] Pneumococcal 13 2018-11-09 Completed Universit y of Conjugate, PCV13 00:00:00 [facility] dical (Prevnar 13) Branch Zoster Vaccine 2018-11-09 Completed University of Recombinant 00:00:00 [facility] Pneumococcal 13 2018-11-09 Completed Universit y of Conjugate, PCV13 00:00:00 [facility] dical (Prevnar 13) Branch Zoster Vaccine 2018-11-09 Completed University of Recombinant 00:00:00 [facility] Pneumococcal 13 2018-11-09 Completed Universit y of Conjugate, PCV13 00:00:00 [facility] dical (Prevnar 13) Branch Zoster Vaccine 2018-11-09 Completed University of Recombinant 00:00:00 [facility] Pneumococcal 13 2018-11-09 Completed Universit y of Conjugate, PCV13 00:00:00 [facility] dical (Prevnar 13) Branch Zoster Vaccine 2018-11-09 Completed University of Recombinant 00:00:00 [place] [facility] Pneumococcal 13 2018-11-09 Completed [facility] y of Conjugate, PCV13 00:00:00 [facility] dicva (Prevnar 13) Branch Zoster Vaccine 2018-11-09 Completed [facility] 00:00:00 [facility] Vital Signs Vital Name Observation Time Observation Value Comments Source Systolic blood 2021-07-15 21:24:00 140 mm[Hg] Univer sity of [facility] Diastolic blood 2021-07-15 21:24:00 79 mm[Hg] Unive rsity [facility] Heart rate 2021-07-15 21:24:00 63 /min Universi ty of [facility] Body temperature 2021-07-15 21:24:00 [facility].67 [facility] 2021-07-15 21:24:00 18 /min Univ ersity [facility] Body height 2021-07-15 21:24:00 165.1 cm Universi ty of [facility] Body weight 2021-07-15 21:24:00 89.359 kg Universi ty of [facility] BMI 2021-07-15 21:24:00 32.78 kg/m2 Universi ty of [facility] Oxygen saturation in 2021-07-15 21:24:00 98 /min University of Arterial blood by [facility] Pulse oximetry Branch Systolic blood 2021-06-14 14:06:00 116 mm[Hg] Univer sity [facility] Diastolic blood 2021-06-14 14:06:00 72 mm[Hg] Unive rsity [facility] Heart rate 2021-06-14 14:06:00 72 /min Universi ty of [facility] Body height 2021-06-14 14:06:00 166.4 cm Universi ty of [facility] Body weight 2021-06-14 14:06:00 89.676 kg Universi ty [facility] BMI 2021-06-14 14:06:00 32.40 kg/m2 Universi ty [facility] Oxygen saturation in 2021-06-14 14:06:00 97 /min University of Arterial blood by [facility] Pulse oximetry Branch Procedures Procedure Date / Time Performing Clinician Source Performed TSH, 3RD GENERATION-Q 2021-06-14 15:16:00 Doctor Unassigned, Uni versity of [place] [facility] VITAMIN B12-Q 2021-06-14 15:16:00 Doctor Unassigned, Universit y of [place] [facility] TDAP VACCINE, >11 YRS, IM 2021-06-14 14:35:52 John Byrd Un iversity of [facility] MS ARTHROCENTESIS 2020-09-18 20:10:23 Nabil [place] He alth ASPIR&/INJ MAJOR JT/BURSA W/O US US Extremity lower venous 2018-12-13 00:00:00 [facility] doppler bilat [id number] [U] XRAY KNEE 3 VWS LEFT 2018-12-10 00:00:00 [facility] [id number] [facility] Tubal Ligation [facility] Hysterectomy [facility] History of Breast Surgery [facility] Lumpectomy History [facility] Bunion [facility] Correction With Metatarsal Osteotomy Encounters Start End Encounter Admission Attending Care Care Encounter Source Date/Time Date/Time Type Type Clinicians Facility Department ID 2020-11-13 Inpatient ASHUTOSH Persaud ADMI [id number] [facility] 09:00:00 Caro [id number] [place] [facility] 2020-11-13 Inpatient ASHUTOSH Persaud ADMI [id number] [facility] 09:00:00 Caro 60 [place] [facility] 2020-10-23 Inpatient ASHUTOSH Persaud ADMI [id number] [facility] 09:15:00 Caro [id number] [place] [facility] 2020-10-16 Outpatient [facility] [id number] [place] 11:32:42 Health 2020-09-17 Outpatient [facility] [id number] [place] 16:44:43 Health 2021-07-15 2021-07-15 Urgent Anna Jackson [facility] [id number] [facility] 16:20:00 16:40:00 Care Catracho Yang [id number] [id number] [place] SAI?BLEA [id number] Vt dical [address] MEDICAL OFFICE BUILDING 2021-07-15 2021-07-15 Outpatient [facility] [id number] [facility] 16:20:00 16:20:00 [id number] ity of [facility] 2021-07-15 2021-07-15 Outpatient R [facility] [id number] Univers 16:20:00 16:20:00 CATRACHO napoles o f [facility] 2021-06-26 2021-06-26 Telephone Carson [facility] [id number] Univers 00:00:00 00:00:00 John HEALTH [id number] it y of [place] [id number] [place]bador as SAI?BLEA [id number] [address] MEDICAL OFFICE [facility] 2021-06-25 2021-06-25 Telephone Carson [facility] [id number] Univers 00:00:00 00:00:00 John HEALTH [id number] it y of [place] [id number] [place]bador as SAI?BLEA [id number] [address] OFFICE [facility] 2021-06-14 2021-06-14 Curator [facility], [place] - [facility] [id number] Univers 10:00:00 10:15:00 Visit John Byrd [id number] ity of [place] [id number] [place]bador as SAI?BLEA [id number] [address] OFFICE [facility] 2021-06-14 2021-06-14 Outpatient R CARSON [facility] [id number] Univers 10:00:00 10:00:00 JOHN napoles [facility] 2021-06-14 2021-06-14 [facility] [id number] Univers 09:00:00 09:53:00 Visit John NAPIER [id number] it y of [place] [id number] Salbador as SAI?BLEA [id number] [address] OFFICE [facility] 2021-06-14 2021-06-14 Orders Doctor MONTERO [id number] Univers 00:00:00 00:00:00 Only Unassigned, JAE [id number] ity of [place] [facility] [id number] Salbador as [id number] [facility] 009 Branch 2020-10-16 2020-10-16 Office Fara [facility] [id number] [place] 11:14:40 11:29:40 Visit ABILIO Perdomo [id number] H [facility] [id number] PLAZA 4 [id number] 2020-09-18 2020-09-18 Office Fara [facility] [id number] [place] 14:49:19 15:15:28 Visit ABILIO Perdomo [id number] H [facility] [id number] PLAZA 8 [id number] [id number] 2020-06-29 2020-06-29 Orders Doctor WINSTON [id number] 00:00:00 00:00:00 Only Unassigned, JAE 350.1.13.10 [place] [facility] [id number] [id number] 2020-05-03 2020-05-03 Office [place] [facility] [id number] 08:45:59 10:06:08 [facility] 350.1.13.10 [place] [id number] Professio [phone] nal 044 Office [address] One 2019-10-11 2019-10-11 Outpatient ASKENASY, MHSE [facility]SE 7503 09:30:00 16:44:[address] [facility] 2019-05-25 2019-05-25 Outpatient Raju_P [facility] [id number] [place] 02:40:00 02:40:00 [facility]01 [facility] 2018-12-20 2018-12-20 Appointmen [facility] Orthopedics [id number] [place] 13:30:00 13:30:00 t; FARA PERDOMO [facility] NABIL Shaver ans ANDREW, M.D. M.D. 2018-12-13 2018-12-13 Appointmen [facility] Orthopedics [id number] [place] 13:15:00 13:15:00 t; FARA PERDOMO - [facility] NABIL PERODMO ans ANDREW, M.D. M.D. Results Test Description Test Time Test Comments Results Result Comments Source TSH, 3RD GENERATION-Q 2021-06-15 08:00:00 Test Item Value Reference Range Interpretation Comme nts TSH, 3RD GENERATION-Q See_Comment [Auto mated message] The (test code = 3016-3) system which generated this result tra nsmitted reference range : 0.40 - 4.50 mIU/L. The reference range was not u sed to interpret this result as normal/abnormal . ALEXSANDRA (test code = ALEXSANDRA) PERFORMED BY [employer]; [address] [place] [id number]; CARO LEDESMA [facility] [id number] 08:00:00 Test Item Value Reference Range Interpretation Comments VITAMIN B12-Q (test 726 pg/mL 200-1100 code = 2132-9) ALEXSANDRA (test code = ALEXSANDRA) PERFORMED BY [employer]; [address] [place] [phone]; CARO LEDESMA MD [facility] Inj/Asp: L [id number] 20:10:23Andaguila Perdomo MD ? ? 09/18/2020 ?3:17 PML Inj/Asp: L knee on 09/18/2020 3:10 PMIndications: painDetails: 22 G needle, anterolateral approachMedications: (Bupivacaine [facility] number [id number] 3 mL 0.5% bupivacaine patient is applied today. Plus methylprednisolone 80 mg/mL 1 mL ND number [id number] patient supplied)Outcome: tolerated well, no immediate complications [...] to verify the correct patient, procedure, equipment, retail support manager and site/side marked as required. Patient was prepped and draped in the usual sterile fashion (ChloraPrep was used to prep the area. ?Ethyl Chloride used for topical anesthesia. ).[facility][U] XRAY KNEE 3 VWS LEFT [id number] 13:40:00Images acquired, not reported on this accession number.[employer] [facility]
--- NOTE | 2021-08-19 11:50 | RAD REPORT ---
EXAM DESCRIPTION: CT - Stone Protocol - 08/19/2021 11:37 am CLINICAL HISTORY: Abdominal pain. COMPARISON: 2019 TECHNIQUE: Computed axial tomography of the abdomen pelvis was obtained without oral or IV contrast. Lack of IV and oral contrast limits evaluation of solid organs, bowel, and vessels. Coronal reformat arabella images were obtained and reviewed. All CT scans are performed using dose optimization technique as appropriate and may include automated exposure control or mA/KV adjustment according to patient size. FINDINGS: A renal calculus is not seen. An ureteral calculus is not noted. A bladder calculus is not present. Cholelithiasis. Gallbladder wall is not thickened. The liver, spleen, pancreas and adrenals appear grossly normal There is no evidence of diverticulitis. Hysterectomy IMPRESSION: Negative for a genitourinary calculus Cholelithiasis
[2021-08-19 13:49] LABS: Absolute Lymphocytes (CBC) 2.3 K/uL (0.7-4.9); Hematocrit 41.9 % (36.0-45.0); Lymphocytes % 38.8 % (15.3-44.8); MPV 7.9 fL (7.6-11.3); RBC Red Blood Cell Count 4.51 M/uL (3.86-4.86)
[2021-08-19 14:05] LABS: Albumin 3.9 g/dL (3.4-5.0); Bilirubin Total 0.7 mg/dL (0.2-1.0); Potassium 3.8 mmol/L (3.5-5.1); Protein, Total 8.2 g/dL (6.4-8.2)
--- NOTE | 2021-08-19 14:11 | EDPHYS ---
Physician Documentation [facility] Name: Pari Nicole Age: 71 yrs Sex: Female : 1950 Arrival Date: 08/19/2021 Time: 10:27 Bed 11 Private MD: ED Physician Kevin Fountain HPI: 08/19 12:31 This 71 yrs old Black Female presents to ER via Ambulatory with complaints of Back Pain.rn 12:31 The patient presents with pain that is acute, with no known mechanism of injury. The rn symptoms are located in the right flank. Onset: The symptoms/episode began/occurred 4 week(s) ago. The pain does not radiate. Associated signs and symptoms: Pertinent negatives: abdominal pain, chest pain, constipation, dysuria, fever, hematuria, incontinence, numbness, tingling, urinary retention. Modifying factors: The patient symptoms are alleviated by nothing, the patient symptoms are aggravated by laying on right side. Severity of symptoms: At their worst the symptoms were mild, in the emergency department the symptoms are unchanged. The patient has not experienced similar symptoms in the past. The patient has not recently seen a physician. Pt reports right flank pain, began 4 weeks ago, no trauma, no fever, no urinary symptoms, no rash. No chest pain or sob. Eating well. No hx of kidney stones. Reports has appt tomorrow with pcp but came in today because pain persistent and not improving.. - Family history:: not pertinent. - Hospitalizations: : No recent hospitalization is reported. ROS: 12:31 Constitutional: Negative for fever, chills, and weight loss, Eyes: Negative for injury, rn pain, redness, and discharge, Neck: Negative for injury, pain, and swelling, Cardiovascular: Negative for chest pain, palpitations, and edema, Respiratory: Negative for shortness of breath, cough, wheezing, and pleuritic chest pain, Abdomen/GI: Negative for abdominal pain, nausea, vomiting, diarrhea, and constipation, Back: + right flank pain : Negative for injury, bleeding, discharge, and swelling, MS/Extremity: Negative for injury and deformity, Skin: Negative for injury, rash, and discoloration, Neuro: Negative for headache, weakness, numbness, tingling, and seizure. Exam: 12:31 Constitutional: This is a well developed, well nourished patient who is awake, alert, rn and in no acute distress. Ambulatory to room without difficulty or assistance. Head/Face: Normocephalic, atraumatic. Cardiovascular: Regular rate and rhythm. No pulse deficits. Respiratory: No increased work of breathing, no retractions or nasal flaring. Abdomen/GI: soft, non-tender, neg hassan Back: No spinal tenderness. No costovertebral tenderness. Full range of motion. Skin: Warm, dry with normal turgor. Normal color with no rashes, no lesions, and no evidence of cellulitis. No signs of shingles. MS/ Extremity: Pulses equal, no cyanosis. Neurovascular intact. Full, normal range of motion. Equal circumference. Neuro: Awake and alert, GCS 15 Vital Signs: 11:34 BP 134 / 74; Pulse 89; Resp 16; Temp 98.1; Pulse Ox 100% on R/A; iw MDM: 11:13 Patient medically screened. rn 14:08 Differential diagnosis: Cholelithiasis Osteoarthritis sprain, cholelithiasis, rn radiculopathy, muscle strain. Data reviewed: vital signs, nurses notes, lab test result(s), radiologic studies, CT scan, and as a result, I will discharge patient. Counseling: I had a detailed discussion with the patient and/or guardian regarding: the historical points, exam findings, and any diagnostic results supporting the discharge/admit diagnosis, lab results, radiology results, the need for outpatient follow up, to return to the emergency department if symptoms worsen or persist or if there are any questions or concerns that arise at home. Special discussion: I discussed with the patient/guardian in detail that at this point there is no indication for admission to the hospital. It is understood, however, that if the symptoms persist or worsen the patient needs to return immediately for re-evaluation. Based on the history and exam findings, there is no indication for further emergent testing or inpatient evaluation. I discussed with the patient/guardian the need to see the primary care provider for further evaluation of the symptoms. 14:08 ED course: No acute findings other than cholelithiasis, symptoms do not fit rn cholelithiasis, patient states "eat whatever I want" and "when I want", and denies problems related to food. Will dc home, has appt with pcp tomorrow for further testing.. 08/19 11:24 Order name: CBC with Diff; Complete Time: 14:07 rn 08/19 11:24 Order name: CMP; Complete Time: 14:07 rn 08/19 11:24 Order name: CT Stone Protocol; Complete Time: 11:54 rn 08/19 11:24 Order name: Lipase; Complete Time: 14:07 rn 08/19 11:26 Order name: Troponin High Sensitivity; Complete Time: 14:07 rn 08/19 11:24 Order name: IV Saline Lock rn 08/19 11:24 Order name: Labs collected and sent rn 08/19 11:24 Order name: Urine Dipstick-Ancillary (obtain specimen) rn 08/19 11:26 Order name: EKG - Nurse/Tech rn Administered Medications: No medications were administered Disposition Summary: 08/19/21 14:10 Discharge Ordered Location: Home rn Problem: an ongoing problem rn Symptoms: have improved rn Condition: Stable rn Diagnosis - Other cholelithiasis without obstruction rn Followup: rn - With: Private Physician - When: As needed - Reason: Recheck today's complaints, Re-evaluation by your physician Discharge Instructions: - Discharge Summary Sheet rn - Cholelithiasis rn Forms: - Medication Reconciliation Form rn - Thank You Letter rn - Antibiotic glove turner - Prescription Opioid Use rn Signatures: Dispatcher [employer] EDKevin Braga MD MD rn
--- NOTE | 2021-08-19 14:11 | ER ---
Nurse's Notes [facility] Name: Pari Nicole Age: 71 yrs Sex: Female : 1950 Arrival Date: 08/19/2021 Time: 10:27 Bed 11 Private MD: Diagnosis: Other cholelithiasis without obstruction Presentation: 08/19 11:34 Chief complaint: Patient states: right flank pain X 4 weeks. Coronavirus screen: At iw this time, the client does not indicate any symptoms associated with coronavirus-19. Ebola Screen: Patient negative for fever greater than or equal to 101.5 degrees Fahrenheit, and additional compatible Ebola Virus Disease symptoms Patient denies exposure to infectious person. Patient denies travel to an Ebola-affected area in the 21 days before illness onset. No symptoms or risks identified at this time. 11:34 Method Of Arrival: Ambulatory iw 11:35 Initial Sepsis Screen: Does the patient meet any 2 criteria? No. Patient's initial iw sepsis screen is negative. Does the patient have a suspected source of infection? No. Patient's initial sepsis screen is negative. Risk Assessment: Do you want to hurt yourself or someone else? Patient reports no desire to harm self or others. Onset of symptoms was June 2021. 11:35 Acuity: YELENA 3 iw - Family history:: not pertinent. - Hospitalizations: : No recent hospitalization is reported. Vital Signs: 11:34 BP 134 / 74; Pulse 89; Resp 16; Temp 98.1; Pulse Ox 100% on R/A; iw ED Course: 10:27 Patient arrived in ED. mr 11:13 Kevin Fountain MD is Attending Physician. rn 11:35 Triage completed. iw 11:35 Arm band placed on. iw 11:39 CT Stone Protocol In Process Unspecified. EDMS 13:42 Lesvia Flores RN is Primary Nurse. iw 13:42 Inserted saline lock: 20 gauge in left antecubital area, using aseptic technique. iw Administered Medications: No medications were administered Outcome: 14:10 Discharge ordered by . rn 14:41 Patient left the ED. iw Signatures: Dispatcher [employer] EDDC FernandezMalu mr Lesvia Flores RN RN iw Kevin Fountain MD MD rn
[2021-08-19 15:28] VITALS: BP 134/74; TEMP 98.1; O2SAT 100
== END 2021-08-19 14:41 | disposition home or self-care (01) ==
LOC: ER 10:24
DX: K80.80 Other cholelithiasis without obstruction (principal)
CPT/HCPCS: 36415; 74176; 76377; 80053; 83690; 84484; 85025; 99283

== ENCOUNTER 2021-09-02 07:37 | Day surgery (SDC) | payer OTHER ==
[2021-09-02] MEDS ORDERED: Ringers Lactate 1,000 ML IV ONE (08:04)
[2021-09-02] MEDS ORDERED: propofoL 200 MG/20 ML VIAL IV ONE (08:06)
[2021-09-02] MEDS ORDERED: FENTANYL CITR 100 MCG/2 ML ONE (08:06)
[2021-09-02] MEDS ORDERED: LIDOCAINE 1% MPF 5 ML VIAL ONE (08:06)
[2021-09-02] MEDS ORDERED: ROCURONIUM 50 MG/5 ML VIAL IV ONE (08:06)
--- NOTE | 2021-09-02 08:33 | RAD REPORT ---
EXAM DESCRIPTION: RAD - Chest Single View - 09/02/2021 8:25 am CLINICAL HISTORY: pre procudre screening Chest pain. COMPARISON: No comparisons FINDINGS: Portable technique limits examination quality. The lungs are grossly clear. The heart is normal in size. No displaced fractures. IMPRESSION: No acute intrathoracic process suspected.
[2021-09-02] MEDS: CEFOXITIN SODIUM 1 GM/VIAL ONE ×2 (08:47→10:00)
[2021-09-02 08:52] LABS: SARS-CoV-2 Antigen Rapid Res Negative (Negative)
[2021-09-02 09:36] LABS: Albumin 3.6 g/dL (3.4-5.0); Bilirubin Direct 0.1 mg/dL (0-0.2); Bilirubin Total 0.5 mg/dL (0.2-1.0); Protein, Total 7.4 g/dL (6.4-8.2)
[2021-09-02] MEDS ORDERED: MIDAZOLAM HCL 2 MG/2 ML INJ ONE (09:51)
[2021-09-02] MEDS ORDERED: NS 0.9% VIAL 10 ML ONE ×2 (09:54→10:20)
[2021-09-02] MEDS ORDERED: dexAMETHasone 10 MG/ML VIAL ONE (10:07)
[2021-09-02] MEDS ORDERED: KETOROLAC 30 MG/ML INJ ONE (10:07)
[2021-09-02] MEDS ORDERED: ONDANSETRON 4 MG/2 ML VIAL ONE (10:14)
[2021-09-02] MEDS ORDERED: GLYCOPYRROLATE 0.2 MG/ML SYR ONE (10:15)
[2021-09-02] MEDS ORDERED: NEOSTIGMINE 1 MG/ML -10 ML VIAL ONE (10:15)
[2021-09-02] MEDS ORDERED: EPHEDRINE SULF 50 MG/ML VIAL ONE (10:20)
[2021-09-02] MEDS ORDERED: Mastisol Adhesive Liq ONE (10:44)
--- NOTE | 2021-09-02 10:48 | P.BOP ---
Preoperative diagnosis: Acute cholecystitis, symptomatic cholelithiasis, RUQ abd pain Postoperative diagnosis: same Primary procedure: Laparoscopic cholecystectomy Gallery Intern: GRACIELA SADLER (MOTOR COACH CHAUFFEUR) Estimated blood loss: <10cc Specimen: gb Findings: as above Anesthesia: General Complications: None Transferred to: Recovery Room Condition: Good
[2021-09-02 11:28] VITALS: O2SAT 98
[2021-09-02] MEDS ORDERED: CODEINE 30MG/APAP 300MG TAB ONE (12:01)
--- NOTE | 2021-09-02 12:15 | OP ---
Date of Procedure: 09/02/2021 Surgeon: Mark Jeffrey MD Travel Service Consultant: RAMÍREZ Díaz. Preoperative Diagnoses: Acute cholecystitis, symptomatic cholelithiasis, right upper quadrant abdomi nal pain. Postoperative Diagnoses: Acute cholecystitis, symptomatic cholelithiasis, right upper quadrant abdom inal pain. Procedure: Laparoscopic cholecystectomy. Estimated Blood Loss: Less than 10 mL. Specimen: Gallbladder. Anesthesia: General plus local. Complications: None. Indication: This is the case of a 71-year-old patient, who comes to us with history of epigastric ri ght upper quadrant pain radiating to the back associated with nausea, vomiting, diagnosed with acute cholecystitis, symptomatic cholelithiasis. The benefits, alternatives, and risks of laparoscopic pos sible open cholecystectomy were fully explained, which include, but not limited to infection, bleedin g, damage to adjacent structures, anesthesia complication, choledocholithiasis, bile leak, pancreatit is, [place], and even . She also understands this may not relieve any symptoms. She might need more than one surgical intervention. She understood, signed a consent. At another point, we are going t o adjust an advisor and she was advised not to take any aspirin. She is taking in the past and she i s still even this week trying to take BC Powder. We explained to her that has aspirin, may be causin g her gastritis at the same time, so we advised her not to do so at least for the duration of this we ek and also after the surgery at least for a week. She was advised not to take any aspirin. Procedure In Detail: The patient was brought to the operating room, placed in supine position. Anes thesia was done without complication. Abdominal area was prepped and draped in the usual sterile fas hion. Marcaine 0.5% was injected for local anesthetic followed by sharp incision of the skin in the infraumbilical region. This patient has abdominoplasty done before, so we used incisions the patient has before in the periumbilical region making sure that the belly button is protected to avoid any n ecrosis. The fascia was opened under direct visualization. Vicryl #1 placed inside the fascia. Has son trocar was carefully introduced. Pneumoperitoneum was obtained. I placed 3 more trocars, 5 mm e ach one of them in epigastric right upper quadrant area under direct visualization. This allowed me to put a grasper in the fundus of the gallbladder, another grasper in the infundibulum retracting the gallbladder in the inferolateral fashion, exposing the triangle of Calot, and obtaining critical vie w. Cystic duct and cystic artery were clearly isolated, freed circumferentially and a connection bet ween those and the gallbladder were clearly identified. I proceeded to ligate those by using at leas t 3 clips proximal, 1 clip distal, ligation in middle. Same was done with the cystic artery. A smal l little branch of the cystic artery was also ligated using the same technique. Hepatic arteries and common bile duct were protected at all times. The gallbladder was removed from liver using Bovie ca uterizer and removed from abdominal cavity using the EndoCatch through the umbilical incision. The a mell was inspected once again. After irrigation and suction, we have no bleeding. Clips were intact. At that moment, I proceeded to remove the trocars under direct vision. Deflated the pneumoperitone um. Closed the fascia with #1 Vicryl. Irrigated the subcutaneous tissue, closed that with 3-0 chrom ic and skin with 3-0 chromic in a subcuticular fashion and Steri-Strips on top. Sponge count, instru ment counts correct. The patient tolerated the procedure well. The patient was sent to recovery in stable condition. MIGUEL A/NIDIA Voice ID: [id number] Report ID: [id number]
--- NOTE | 2021-09-02 12:21 | DS ---
Diagnoses: Acute cholecystitis, symptomatic cholelithiasis, right upper quadrant abdominal pain. Procedure: Laparoscopic cholecystectomy. Disposition: Home. Activity: As tolerated. No heavy lifting. Plan: Follow up in my office in 1 week. Call for appointment at [phone]. Keep area dry for 48 palma rs, then may shower. Keep Steri-Strip intact. Medications: See orders. MIGUEL A/NIDIA Voice ID: [id number] Report ID: [id number]
[2021-09-02 12:49] VITALS: BP 111/58; TEMP 97.4
--- NOTE | 2021-09-02 13:56 | EKG ---
Test Date: 2021-09-02 Test Time: 08:04:30 Importer Or Exporter: ANTON MEASUREMENT RESULTS: Intervals: Rate: 65 CO: 170 QRSD: 82 QT: 400 QTc: 416 Anderson: P: 50 CO: 170 QRS: -8 T: 6 INTERPRETIVE STATEMENTS: Normal sinus rhythm Possible Anterior infarct, age undetermined Abnormal ECG Compared to ECG 12/24/2020 00:24:01 Myocardial infarct finding now present Sinus bradycardia no longer present Electronically Signed On 09-02-21 13:49:32 CDT by Darinel Agarwal
== END 2021-09-02 12:40 | disposition home or self-care (01) ==
LOC: OR 07:37
PROVIDERS: ATTEND Surgery
PROC: 0FT44ZZ Resection of Gallbladder, Percutaneous Endoscopic Approach (ICD-10-PCS; principal; 2021-09-02 09:45)
DX: K80.10 Calculus of gallbladder with chronic cholecystitis without obstruction (principal); R10.11 Right upper quadrant pain; I10 Essential (primary) hypertension; E11.9 Type 2 diabetes mellitus without complications; Z20.822 Contact with and (suspected) exposure to COVID-19
CPT/HCPCS: 36415; 71045; 80076; 82150; 87811; 88304; 93005; J0694; J1100; J2250; J2405; J2704; J2710; J3010; J7120

== ENCOUNTER 2021-12-12 17:09 | Emergency (ER) | payer OTHER ==
--- OUTSIDE RECORDS SUMMARY | 2021-12-12 17:14 | XMS REPORT | Continuity of Care Document ---
:1950 Author Organization [facility] t Address [address] [place] [address] Care Team Providers Name Role Phone Micah Mclaughlinemily Dickens Primary Care Physician [phone] Akosua Marin Attending Clinician Unavailable Caro Shoemaker Attending Clinician Unavailable Nabil Noble MD Attending Clinician Anna Jackson MD Attending Clinician Catracho Ott Attending Clinician CATRACHO ANDERSON Attending Clinician Unavailable John Almodovar Attending Clinician THOMAS AHIDER Attending Clinician Unavailable Lab, Ang - Db Attending Clinician Unavailable JOHN BYRD Attending Clinician Unavailable Doctor Unassigned, [facility] Attending Clinician Unavailable LING MA Attending Clinician Unavailable Ling Ma MD Attending Clinician BUTCH ISBELL Attending Clinician Unavailable Nurse, Adc Pob Immunization Attending Clinician Unavailable Butch Isbell DO Attending Clinician ANDREW HAYWARD Attending Clinician Unavailable Moriah_Daniel Attending Clinician Unavailable NABIL NOBLE M.D. Attending Clinician Unavailable Caro Shoemaker Admitting Clinician Unavailable LING MA Admitting Clinician Unavailable Kiki Admitting Clinician Unavailable Payers Payer Name Policy Type Policy Number Effective Date Expiration Date S mando [employer] MEDICARE PPO [id number] 2017 00:00:00 Problems Condition Condition Condition Status Onset Resolution Last Treating Co mments Source Name Details Category Date Date Treatment Clinician Date Left Left Disease Active Last [facility] Achilles Achilles 8-30 Assessmen Hea lt tendinitis tendinitis 00:00: t & Plan: 00 Formattin g of this note might be different from the original. Recommend trial of physical therapy, home excise program. Follow-up as needed and for possible left knee CSI injection . Left knee Left knee Disease Active [facility] pain pain 8-30 Health 00:00: 00 Need for Need for Disease Active Unive rs vaccinatio vaccinatio 4-22 it y of n n 00:00: [place] [facility] Puncture Puncture Disease Active Unive rs wound of wound of 4-22 ity of right right 00:00: [place] upper arm, upper arm, 00 Me dical initial initial Branch encounter encounter Encounter Encounter Disease Active Uni vers to to 4-22 [place] of establish establish 00:[place] Mixed Mixed Disease Active 2020-02 Univers hyperlipid hyperlipid 06 it y of emia emia 00:00: Medical Branch Prediabete Prediabete Disease Active 2020-02 U nivers s s 1-06 ity of 00:00: Medical Branch Primary Primary Disease Active Last [facility] osteoarthr osteoarthr 8-24 Assessmen Health itis of itis of 00:00: t & Plan: both knees both knees 00 Formattin g of this note might be different from the original. Today, I recommend ed activity modificat ions, weight loss, NSAIDs as needed (if no contraind ication such as a history of kidney disease), and gentle self-driv en exercise program. We discussed joint replaceme nt as a last resort option, which is guided by progressi ve symptomat ic worsening and unsuccess ful non-opera tive treatment . Refill benzocain e 0.5% methylpre dnisolone , and once she obtains it from [facility] we may administe r that for her. Patient verbalize qamar edward. Acute pain Acute [...] done well for her. Follow-up as needed. Acute pain Acute pain Disease Active Last [...] Prinzmetal Disease [facility]ergic Allergic Disease Active Unive rs rhinitis rhinitis [facility] Anxiety Anxiety Disease Active Univers [facility] Hypertensi Hypertensi Disease Active U nivers on on [facility] Localized Localized Problem Active [facility] osteoarthr osteoarthr [...] No Known DA Active U 2006- [facility]- [place] All[facility]ie 00:[facility]: [facility] No Known DA Active U 2006-02 [facility] Other - [place] Allergie 00:00: [facility]ope [facility] No Known DA Active U 2006-02 [facility] Contrast - [place] Allergie 00:00: Orthope s 00 dic [facility]ospita [facility] No Known DA Active U 2006-02 [facility] Drug [place] Allergie 00:00: Orthope s 00 dic Hospita l No Known DA Active U 2002-02 [facility] Drug 0-06 [place] Intolera 00:00: Orthope nces 00 dic Hospita l NO KNOWN Drug Active Univers ALLERGIE Class ity of [facility] Family History Family Member Diagnosis Comments Start Date Stop Date Source Father Family history of cardiac [facility] disorder Father Family history of [facility] hypertension Father Family history of [facility] myocardial infarction Social History Social Habit Start Date Stop Date Quantity Comments Source History SDOH [facility] Alcohol Std Drinks History SDNY [facility] Alcohol [facility]inge History [facility] Alcohol Comment Exposure to 2021-10-12 2021-10-22 Not sure [facility] SARS-CoV-2 (event) 00:00:00 13:27:00 Alcohol intake 2021-10-22 2021-10-22 Lifetime [facility] 00:00:00 00:00:00 non-drinker (finding) Tobacco use and 2020-09-18 2020-09-18 Smokeless tobacco [facility] exposure 00:00:00 00:00:00 non-user History SDOH 2020-09-18 2020-09-18 1 [facility] Alcohol Frequency 00:00:00 00:00:00 Sex Assigned At [birth year] [facility] 00:00:00 00:00:00 Smoking Status Start Date Stop Date Source Never smoker [facility] Medications Ordered Filled Start Stop Current Ordering Indication Dosage Frequency Signature Comments Components Source Medication Medication Date Date Medication? Clinician (SIG) Name Name ketorolac 2021- No [id number] 30mg Un breonna (TORADOL) 5- 05-23 ity of injection 22:45: 21:37 [place] 30 mg 00 :00 Medical Branch ketorolac 2021- No [id number] 30mg 30 mg, Univers (TORADOL) 5-23 05-23 Intramuscu ity of injection 22:45: 21:37 [place], ONCE, [place] 30 mg 00 :00 1 dose, On Medical Mon Branch 07/15/21 at 1745, Routine
membership correspondent approving Restricted medication : ANNA JACKSON cyclobenzap Yes [id number] 5mg Take 1 Univers rine 5 mg 07-15 tablet by ity o f tablet 00:00: mouth at [place] 00 bedtime. Medical Branch mupirocin 2 2021- No [id number] Apply to Univers % ointment 06-14 [id number] area(s) 3 i ty of 00:00: 04:59 (three) [place] 00 :00 times Medical daily for Branch 14 days. mupirocin 2 2021- No [id number] Apply to Univers % ointment 06-14 [id number] area(s) 3 i ty of 00:00: 04:59 (three) [place] 00 :00 times Medical daily for Branch 14 days. mupirocin 2 2021- No [id number] Apply to Univers % ointment 06-14 [id number] area(s) 3 i ty of 00:00: 04:59 (three) [place] 00 :00 times Medical daily for Branch 14 days. mupirocin 2 2021- No [id number] Apply to Univers % ointment 06-14 [id number] area(s) 3 i ty of 00:00: 04:59 (three) [place] 00 :00 times Medical daily for Branch 14 days. mupirocin 2 2021- No [id number] Apply to Univers % ointment 06-14 [id number] area(s) 3 i ty of 00:00: 04:59 (three) [place] 00 :00 times Medical daily for Branch 14 days. mupirocin 2 2021- No [id number] Apply to Univers % ointment 06-14 [id number] area(s) 3 i ty of 00:00: 04:59 (three) [place] 00 :00 times Medical daily for Branch 14 days. amLODIPine Yes 5mg Take 5 mg Un breonna 5 mg tablet 4-04 by mouth ity of 00:00: daily. [place] [facility] amLODIPine 2022-0 Yes 5mg Take 5 mg Un breonna 5 mg tablet 4-04 by mouth ity of 00:00: daily. [place] [facility] amLODIPine 2022-0 Yes 5mg Take 5 mg Un breonna 5 mg tablet 4-04 by mouth ity of 00:00: daily. [place] [facility] Branch amLODIPine 2022-0 Yes 5mg Take 5 mg Un breonna 5 mg tablet 4-04 by mouth ity of 00:00: daily. [place] [facility] amLODIPine 2022-0 Yes 5mg Take 5 mg Un breonna 5 mg tablet 4-04 by mouth ity of 00:00: daily. [place] [facility] Branch amLODIPine 2022-0 Yes 5mg Take 5 mg Un breonna 5 mg tablet 4-04 by mouth ity of 00:00: daily. [place] [facility] Branch amLODIPine 2022-0 Yes 5mg Take 5 mg Un breonna 5 mg tablet 4-04 by mouth ity of 00:00: daily. [place] [facility] Branch nitroglycer 2020-[address] 0[address]4 [...] s mg tablet 0-19 ity of 00:00: [place] [facility] losartan 50 2020-02 Yes Univer s mg tablet 0-19 ity of 00:00: [place] [facility] losartan 50 2020-02 Yes Univer s mg tablet 0-19 ity of 00:00: [place] [facility] losartan 50 2020-02 Yes Univer s mg tablet 0-19 ity of 00:00: [place] [facility] losartan 50 2020-02 Yes Univer s mg tablet 0-19 ity of 00:00: [place] [facility] losartan 50 2020-02 Yes Univer s mg tablet 0-19 ity of 00:00: [place] [facility] losartan 50 2020-02 Yes Univer s mg tablet 0-19 ity of 00:00: [place] [facility] metoprolol 2020-0 Yes 1{tbl} Take 1 UT tartrate 7-27 tablet by Health (Lopressor) 19:55: mouth. 100 MG 04 tablet metoprolol 2020-0 Yes 1{tbl} Take 1 UT tartrate 7-27 tablet by Health (Lopressor) 19:55: mouth. 100 MG 04 tablet metoprolol 2020-0 Yes 1{tbl} Take 1 UT tartrate 7-27 tablet by Health (Lopressor) 14:55: mouth. 100 MG 04 tablet olmesartan 2020-0 Yes 20mg Take 20 mg U nivers 20 mg 6-28 by mouth ity of tablet 00:00: daily. [place] [address] Medical Branch olmesartan 2021-0 Yes 20mg Take [...] by mouth ity of tablet 00:00: daily. [facility] Branch olmesartan 2021-0 Yes 20mg QD Take 20 mg U T (BENIcar) 6-28 by mouth 1 Heal th 20 MG 00:00: (one) time tablet 00 each day. olmesartan 2021-0 Yes 20mg QD Take 20 mg U T (BENIcar) 6-28 by mouth 1 Heal th 20 MG 00:00: (one) time tablet 00 each day. olmesartan 2021-0 Yes 20mg QD Take 20 mg U T (BENIcar) 6-28 by mouth 1 Heal th 20 MG 00:00: (one) time tablet 00 each day. triamcinolo 2020-0 Yes [id number] Apply to Univers ne 0.025 % 3-11 area(s) 2 ity of cream 00:00: (two) [place] times Medical daily. Branch fluticasone 2020-0 Yes [id number] 2{spray Use 2 Univers propionate 3-11 } Sprays in ity of 50 00:00: each [place] mcg/actuati 00 nostril Medic al on nasal daily. Branch spray loratadine 2020-0 Yes [id number] 10mg Take 1 U nivers 10 mg 3-11 tablet by ity of tablet 00:00: mouth [place] 00 daily. Medical Branch triamcinolo 2020-0 Yes [id number] Apply to Univers ne 0.025 % 3-11 area(s) 2 ity of cream 00:00: (two) [place] times Medical daily. Branch fluticasone 0 Yes [id number] 2{spray Use 2 Univers propionate 3-11 } Sprays in ity of 50 00:00: each [place] mcg/actuati 00 nostril Medic al on nasal daily. Branch spray loratadine 0 Yes [id number] 10mg Take 1 U nivers 10 mg 3-11 tablet by ity of tablet 00:00: mouth [place] 00 daily. Medical Branch triamcinolo 0 Yes [id number] Apply to Univers ne 0.025 % 3-11 area(s) 2 ity of cream 00:00: (two) [place] 00 times Medical daily. Branch fluticasone Yes [id number] 2{spray Use 2 Univers propionate 3-11 } Sprays in ity of 50 00:00: each [place] mcg/actuati 00 nostril Medic al on nasal daily. Branch spray loratadine Yes [id number] 10mg Take 1 U nivers 10 mg 3-11 tablet by ity of tablet 00:00: mouth [place] 00 daily. Medical Branch triamcinolo Yes [id number] Apply to Univers ne 0.025 % 3-11 area(s) 2 ity of cream 00:00: (two) [place] 00 times Medical daily. Branch fluticasone Yes [id number] 2{spray Use 2 Univers propionate 3-11 } Sprays in ity of 50 00:00: each [place] mcg/actuati 00 nostril Medic al on nasal daily. Branch spray loratadine 0 Yes [id number] 10mg Take 1 U nivers 10 mg 3-11 tablet by ity of tablet 00:00: mouth [place] 00 daily. Medical Branch triamcinolo Yes [id number] Apply to Univers ne 0.025 % 3-11 area(s) 2 ity of cream 00:00: (two) [place] 00 times Medical daily. Branch fluticasone 0 Yes [id number] 2{spray Use 2 Univers propionate 3-11 } Sprays in ity of 50 00:00: each [place] mcg/actuati 00 nostril Medic al on nasal daily. Branch spray loratadine 0 Yes [id number] 10mg Take 1 U nivers 10 mg 3-11 tablet by ity of tablet 00:00: mouth [place] 00 daily. Medical Branch triamcinolo Yes [id number] Apply to Univers ne 0.025 % 3-11 area(s) 2 ity of cream 00:00: (two) [place] 00 times Medical daily. Branch fluticasone Yes [id number] 2{spray Use 2 Univers propionate 3-11 } Sprays in ity of 50 00:00: each [place] mcg/actuati 00 nostril Medic al on nasal daily. Branch spray loratadine Yes [id number] 10mg Take 1 U nivers 10 mg 3-11 tablet by ity of tablet 00:00: mouth 00 daily. Medical Branch triamcinolo Yes [id number] Apply to Univers ne 0.025 % 3-11 area(s) 2 ity of cream 00:00: (two) [place] 00 times Medical daily. Branch fluticasone Yes [id number] 2{spray Use 2 Univers propionate 3-11 } Sprays in ity of 50 00:00: each [place] mcg/actuati 00 nostril Medic al on nasal daily. Branch spray loratadine Yes [id number] 10mg Take 1 U nivers 10 mg 3-11 tablet by ity of tablet 00:00: mouth 00 daily. Medical Branch metoprolol Yes TK 1 T PO Un breonna succinate 9- D. ity of XL 100 mg 00:00: [place] 24 hr 00 Medical tablet Branch metoprolol Yes TK 1 T PO Un breonna succinate 9 D. ity of XL 100 mg 00:00: [place] 24 hr 00 Medical tablet Branch metoprolol Yes TK 1 T PO Un breonna succinate 9-04 D. ity of XL 100 mg 00:00: [place] 24 hr 00 Medical tablet Branch metoprolol Yes TK 1 T PO Un breonna succinate 9- D. ity of XL 100 mg 00:00: [place] 24 hr 00 Medical tablet Branch metoprolol Yes TK 1 T PO Un breonna succinate 9- D. ity of XL 100 mg 00:00: [place] 24 hr 00 Medical tablet Branch metoprolol Yes TK 1 T PO Un breonna succinate 9-04 D. ity of XL 100 mg 00:00: [place] 24 hr 00 Medical tablet Branch metoprolol Yes TK 1 T PO Un breonna succinate 10-27 D. ity of XL 100 mg 00:00: [place] 24 hr 00 Medical tablet Branch Metoprolol [...] JUAN DAVID Inject one [facility] MG/4ML MG/4ML 11-03 [facility]HE[facility]-BAR dose Physi ci Intra-artic Intra-artic 00:00: RE M.D. ans aly lu 00 Solution Solution Prefilled Prefilled Syringe Syringe Immunizations Ordered Filled Immunization Date Status Comments Sourc e Immunization Name Name TDAP 2021-06-14 Completed University of 00:00:[address] [facility] TDAP 2021-06-14 Completed University of 00:00:[address] [facility] TDAP 2021-06-14 Completed University of 00:00:[address] [facility] TDAP 2021-06-14 Completed University of 00:00:[address] [facility] TDAP 2021-06-14 Completed University of 00:00:[address] [facility] TDAP 2021-06-14 Completed University of 00:00:[address] [facility] TDAP 2021-06-14 Completed University of 00:00:[address] [facility] SARS-COV-2 COVID-19 2020-12-25 Completed Unive rsity of MODERNA BOOSTER 00:00:00 [facility] VACCINE Branch SARS-COV-2 COVID-19 2020-12-25 Completed Unive rsity of MODERNA BOOSTER 00:00:00 [facility] VACCINE [place] SARS-COV-2 COVID-19 2020-12-25 Completed Unive rsity of MODERNA BOOSTER 00:00:00 [facility] VACCINE Branch SARS-COV-2 COVID-19 2020-12-25 Completed Unive rsity of MODERNA BOOSTER 00:00:00 [place] Med ical VACCINE Branch SARS-COV-2 COVID-19 2020-12-25 Completed Unive rsity of MODERNA 0.25ML 00:00:00 [place] Medi kia BOOSTER VACCINE Branch SARS-COV-2 COVID-19 2020-12-25 Completed Unive rsity of MODERNA 0.25ML 00:00:00 [place] Medi kia BOOSTER VACCINE Branch SARS-COV-2 COVID-19 2020-12-25 Completed Unive rsity of MODERNA 0.25ML 00:00:00 [place] [facility] kia BOOSTER VACCINE Branch Influenza High Dose 2020-10-24 Completed Unive rsity of 00:00:00 [place] [facility] Influenza High Dose 2020-10-24 Completed Unive rsity of 00:00:00 [place] [facility] Influenza High Dose 2020-10-24 Completed Unive rsity of 00:00:[address] [facility] Branch Influenza High Dose 2020-10-24 Completed Unive rsity of 00:00:[address] [facility] Branch Influenza High Dose 2020-10-24 Completed Unive rsity of 00:00:[address] [facility] Branch Influenza High Dose 2020-10-24 Completed Unive rsity of 00:00:00 [place] [facility] Influenza High Dose 2020-10-24 Completed Unive rsity of 00:00:[address] [facility] SARS-COV-2 COVID-19 2020-04-28 Completed Unive rsity of MODERNA VACCINE 00:00:00 [facility] ical Branch SARS-COV-2 COVID-19 2020-04-28 Completed Unive rsity of MODERNA VACCINE 00:00:00 [facility] ical Branch SARS-COV-2 COVID-19 2020-04-28 Completed Unive rsity of MODERNA VACCINE 00:00:00 [facility] ical Branch SARS-COV-2 COVID-19 2020-04-28 Completed Unive rsity of MODERNA VACCINE 00:00:00 [facility] ical Branch SARS-COV-2 COVID-19 2020-04-28 Completed Unive rsity of MODERNA VACCINE 00:00:00 [facility] ical Branch SARS-COV-2 COVID-19 2020-04-28 Completed Unive rsity of MODERNA VACCINE 00:00:00 [facility] ical Branch SARS-COV-2 COVID-19 2020-04-28 Completed Unive rsity of MODERNA VACCINE 00:00:00 [facility] SARS-COV-2 COVID-19 2020-03-31 Completed Unive rsity of MODERNA VACCINE 00:00:00 [facility] SARS-COV-2 COVID-19 2020-03-31 Completed Unive rsity of MODERNA VACCINE 00:00:00 [facility] SARS-COV-2 COVID-19 2020-03-31 Completed Unive rsity of MODERNA VACCINE 00:00:00 [facility] SARS-COV-2 COVID-19 2020-03-31 Completed Unive rsity of MODERNA VACCINE 00:00:00 [facility] SARS-COV-2 COVID-19 2020-03-31 Completed Unive rsity of MODERNA VACCINE 00:00:00 [facility] SARS-COV-2 COVID-19 2020-03-31 Completed Unive rsity of MODERNA VACCINE 00:00:00 [facility] SARS-COV-2 COVID-19 2020-03-31 Completed Unive rsity of MODERNA VACCINE 00:00:00 [facility] Pneumococcal 13 2018-11-09 Completed Universit y of Conjugate, PCV13 00:00:00 [facility] dical (Prevnar 13) Branch Zoster Vaccine 2018-11-09 Completed University of Recombinant 00:00:[address] [facility] Pneumococcal 13 2018-11-09 Completed Universit y of Conjugate, PCV13 00:00:00 [facility] dical (Prevnar 13) Branch Zoster Vaccine 2018-11-09 Completed University of Recombinant 00:00:[address] [facility] Pneumococcal 13 2018-11-09 Completed Universit y of Conjugate, PCV13 00:00:00 [facility] dical (Prevnar 13) Branch Zoster Vaccine 2018-11-09 Completed University of Recombinant 00:00:[address] [facility] Pneumococcal 13 2018-11-09 Completed Universit y of Conjugate, PCV13 00:00:00 [facility] dical (Prevnar 13) Branch Zoster Vaccine 2018-11-09 Completed University of Recombinant 00:00:[address] [facility] Pneumococcal 13 2018-11-09 Completed Universit y of Conjugate, PCV13 00:00:00 [facility] dical (Prevnar 13) Branch Zoster Vaccine 2018-11-09 Completed University of Recombinant 00:00:[address] [facility] Pneumococcal 13 2018-11-09 Completed Universit y of Conjugate, PCV13 00:00:00 [place] Me dical (Prevnar 13) Branch Zoster Vaccine 2018-11-09 Completed University of Recombinant 00:00:[address] [facility] Pneumococcal 13 2018-11-09 Completed Universit y of Conjugate, PCV13 00:00:00 [facility] dical (Prevnar 13) Branch Zoster Vaccine 2018-11-09 Completed University of Recombinant 00:00:[address] [facility] Vital Signs Vital Name Observation Time Observation Value Comments Source Systolic blood 2021-07-15 21:24:00 140 mm[Hg] Univer sity of pressure [facility] Diastolic blood 2021-07-15 21:24:00 79 mm[Hg] Unive rsity of [facility] Heart rate 2021-07-15 21:24:00 63 /min Universi ty of [facility] Body temperature 2021-07-15 21:24:00 36.67 Sridevi [facility] ersity of [facility] Respiratory rate 2021-07-15 21:24:00 18 /min Univ ersity [facility] Body height 2021-07-15 21:24:00 165.1 cm Universi ty of [facility] Body weight 2021-07-15 21:24:[address] [facility] BMI 2021-07-15 21:24:00 32.78 kg/m2 Universi ty [facility] Oxygen saturation in 2021-07-15 21:24:00 98 /min [facility] Arterial blood by [facility] Pulse oximetry Branch Systolic blood 2021-06-14 14:06:00 116 mm[Hg] Univer sity of pressure [facility] Diastolic blood 2021-06-14 14:06:00 72 mm[Hg] Unive rsity of pressure [facility] Heart rate 2021-06-14 14:06:00 72 /min Universi ty of [facility] Body height 2021-06-14 14:06:[address]i ty of [facility] Body weight 2021-06-14 14:06:[address] [facility] BMI 2021-06-14 14:06:00 32.40 kg/m2 Universi ty of [place] [facility] Oxygen saturation in 2021-06-14 14:06:00 97 /min University Arterial blood by [facility] Pulse oximetry Branch Procedures Procedure Date / Time Performing Clinician Source Performed TSH, 3RD GENERATION-Q 2021-06-14 15:16:00 Doctor Unassigned, [facility] Name Medical [place] VITAMIN B12-Q 2021-06-14 15:16:00 Doctor Unassigned, [facility] [place] [facility] TDAP VACCINE, >11 YRS, IM 2021-06-14 14:35:52 John Byrd [facility] DC ARTHROCENTESIS 2020-09-18 20:10:23 [facility]abil [facility] ASPIR&/INJ MAJOR JT/BURSA W/O US US Extremity lower venous 2018-12-13 00:00:00 [facility] doppler bilat [id number] [U] XRAY KNEE 3 VWS LEFT 2018-12-10 00:00:00 [facility] [id number] [facility] Tubal Ligation [facility] Hysterectomy [facility] of Breast Surgery [facility] Lumpectomy History of Bunion [facility] Correction With Metatarsal Osteotomy Encounters Start End Encounter Admission Attending Care Care Encounter Source Date/Time Date/Time Type Type Clinicians Facility Department ID 2021-09-[address] [facility] [id number] Common 09:11:01 [place] [address] [facility] 2020-11-13 Inpatient ERNA BRADLEY ShoemakerTO ADMI [id number] [facility] 09:00:00 Caro Webber [place] [facility] 2020-10-16 Outpatient [facility] [id number] [place] 11:32:42 Health 2020-09-17 Outpatient [facility] [id number] [place] 16:44:43 Health 2021-10-22 2021-10-22 Outpatient [facility] [id number] UT 13:50:00 14:58:30 Health 2021-10-22 2021-10-22 Outpatient [facility] [id number] UT 13:45:00 14:56:04 Health 2021-10-22 2021-10-22 Office Fara [facility] [id number] [place] 13:45:00 14:55:31 Visit ABILIO Perdomo [id number] H [facility] [id number] EMMYZA [id number] 2021-09-16 2021-09-16 ambulatory STLMLC STLMLC [id number] Common 00:00:00 00:00:00 [facility] 2021-09-16 2021-09-16 ambulatory STLMLC STLMLC [id number] Common 00:00:00 00:00:00 [facility] 2021-07-15 2021-07-15 Urgent Anna Jackson [facility] [id number] Univers 16:20:00 16:40:00 Catracho Nguyen [facility] [id number] ity of [place] [id number] [place] as SAI?BLEA [id number] [address] MEDICAL OFFICE [facility] 2021-07-15 2021-07-15 Outpatient R [facility] [id number] Univers 16:20:00 16:20:[address] napoles o ap[address] [facility] 2021-06-26 2021-06-26 Telephone [facility] [id number] Univers 00:00:00 00:00:00 John HEALTH [id number] it y of [place] [id number] [place] as SAI?BLEA [id number] [address] OFFICE [facility] 2021-06-25 2021-06-25 Telephone [facility] [id number] Univers 00:00:00 00:00:00 John HEALTH [id number] it y of [place] [id number] [place] as SAI?BLEA [id number] [address] OFFICE [facility] 2021-06-17 2021-06-17 Outpatient R [facility] [id number] Univers 08:30:00 08:30:00 THOMAS napoles [facility] 2021-06-14 2021-06-14 Notched [facility], Ang - Db [facility] [id number] Univers 10:00:00 10:15:00 Visit John Byrd [id number] [facility] [id number] Salbador as SAI?BLEA [phone] N[place] armand MITCHELL [address] [facility] 2021-06-14 2021-06-14 Outpatient R CARSON [facility] [id number] Univers 10:00:00 10:00:00 JOHN napoles [facility] 2021-06-14 2021-06-14 Outpatient R CARSON [facility] [id number] Univers 09:00:00 09:53:00 JOHN napoles [facility] 2021-06-14 2021-06-14 Office Carson [facility] 1.2.840.114 [id number] Univers 09:00:00 09:53:00 Visit John NAPIER 350.1.13.10 it y of [place] 4.2.7.2.686 [place] SAI?BLEA [phone] Nv chungnancy VILLA [address] MEDICAL OFFICE [facility] 2021-06-14 2021-06-14 Orders Doctor MONTERO 1.2.840.114 [id number] Univers 00:00:00 00:00:00 Only Unassigned, JAE 350.1.13.[address] [place] [facility] 4.2.7.2.686 [place] as [phone] [facility] [address] 2021-01-21 2021-01-21 Outpatient R JYOTI [facility] [id number] Univers 09:53:40 23:59:00 W[address] ity o f [facility] 2021-01-21 2021-01-21 Hospital [facility] [id number] Univers 09:40:00 23:59:00 Encounter Wondiful A ANGLEREBEKA 350.1.13.10 ity of [place] [id number] [facility] [address] 2021-01-21 2021-01-21 Orders Doctor MONTERO 1.2.840.114 [id number] Univers 00:00:00 00:00:00 Only Unassigned, JAE 350.1.13.[address] [place] [facility] 4.2.7.2.686 [place] as [id number] [address] 2020-12-28 2020-12-28 Telephone Jyoti [facility] 1.2.840.114 [id number] Univers 00:00:00 00:00:00 Wondiful A HEALTH 350.1.13.10 ity of [place] 4.2.7.2.686 [place] SAI?BLEA [phone] Nv armand VILLA 044 [facility] OFFICE [facility] 2020-12-25 2020-12-25 Outpatient R AKILAH [facility] [id number] Univers 09:30:00 09:30:00 BUTCH itjonn [facility] 2020-12-25 2020-12-25 Imm/Inj Nurse, Adc Pob Immunization [facility] 1.2.840.114 [id number] Univers 09:09:07 09:11:08 Visit Butch Isbell 350.1.13 .10 ity of [place] [phone] N[place] armand LEMUS 421 [facility] 2020-12-24 2020-12-24 Notched [facility], Ang - [facility] 1.2.840.1 14 [id number] Univers 07:44:02 07:59:02 Visit Ling Ma HEALTH 350.1.13.1 0 ity of [place] 4.2.7.2.686 [place] SAI?BLEA [phone] Nv dicnancy ALLENMAGALY [address] MEDICAL OFFICE [facility] 2020-12-24 2020-12-24 Outpatient R JYOTI [facility] [id number] Univers 07:45:00 07:45:[address] [facility] 2020-12-24 2020-12-24 Outpatient R [facility] [id number] Univers 07:45:00 07:45:[address] [facility] 2020-12-24 2020-12-24 Orders [place] Ma 1.2.840.114 [id number] Univers 00:00:00 00:00:00 Only Wondiful A JAE 350.1.13.10 ity of [facility] 4.2.7.2.686 [place] [phone] [address] 2020-12-21 2020-12-21 Out[facility] [id number] Univers 08:15:00 08:15:[address] o f [facility] 2020-12-17 2020-12-17 Outpatient [facility] [id number] [facility] 15:00:00 16:10:[address] o f [facility] 2020-12-17 2020-12-17 Office [facility] 1.2.840.114 [id number] Univers 14:58:31 16:10:37 [facility] 350.1.13.10 ity of [place] 4.2.7.2.686 [place] SAI?BLEA [id number] [address] MEDICAL OFFICE [facility] 2020-12-17 2020-12-17 Outpatient R [facility] [id number] Univers 15:00:00 15:00:00 WONDIFUL ity o [facility] 2020-10-16 2020-10-16 [facility] 1.2.840.114 [id number] [place] 11:14:40 11:29:40 Visit ABILIO Perdomo 350.1.13.58 H [facility] 9.2.7.2.686 [place] 9 [id number] [id number] 2020-09-18 2020-09-18 Office [facility] 1.2.840.114 [id number] [place] 14:49:19 15:15:28 Visit NolaABILIO jackson 350.1.13.58 H [facility] 9.2.7.2.686 [place] 9 [id number] [id number] 2020-06-29 2020-06-29 Orders Doctor MONTERO 1.2.840.114 [id number] Univers 00:00:00 00:00:00 Only Unassigned, JAE 350.1.13.[address] [place] [facility] 4.2.7.2.686 [place] [phone] [address] 2020-06-29 2020-06-29 Orders Doctor [place] 1.2.840.114 [id number] 00:00:00 00:00:00 Only Unassigned, JAE 350.1.13.10 [facility] [place] [facility] 4.2.7.2[id number] [facility] 2020-05-03 2020-05-03 Office [facility] 1.2.840.114 [id number] Univers 08:45:59 10:06:08 Visit Wondiful A Health 350.1.13.10 ity of [place] 4.2.7.2.686 [place] Professio [phone] Nv dical [address] One 2020-05-03 2020-05-03 Office [facility] 1.2.840.114 [id number] 08:45:59 10:06:08 Visit Wondiful A Health 350.1.13.10 [place] 4.2.7.2.686 Professio [phone] nal [address] [place] [address] One 2020-05-03 2020-05-03 Outpatient [facility] [id number] Univers 09:00:00 09:00:[address] o f [facility] 2020-04-28 2020-04-28 Outpatient [facility] [id number] Univers 14:30:00 14:30:00 ity [facility] 2020-03-31 2020-03-31 Outpatient [facility] [id number] Univers 14:40:00 14:40:00 ity [facility] 2019-10-11 2019-10-11 Outpatient ASKENASY, MHSE MHSE [id number] MH 09:30:00 16:44:[address] [facility] 2019-05-25 2019-05-25 Outpatient Raju_P [facility] [id number] [place] 02:40:00 02:40:00 [facility]01 [facility] 2018-12-20 2018-12-20 [facility] Orthopedics [id number] [place] 13:30:00 13:30:00 t; FARA PERDOMO, - [place] NABIL Shaver ans ANDREW, M.D. M.D. 2018-12-13 2018-12-13 [facility] Orthopedics [id number] [place] 13:15:00 13:15:00 t; FARA PERDOMO, - [place] NABIL Shaver ans ANDREW, M.D. M.D. Results Test Description [...] ALEXSANDRA (test code = ALEXSANDRA) PERFORMED BY [employer]; [address] [place] [phone]; CARO LEDESMA [facility] [id number] 08:00:00 Test Item Value Reference Range Interpretation Comments VITAMIN B12-Q (test 726 pg/mL 200-1100 code = 2132-9) ALEXSANDRA (test code = ALEXSANDRA) PERFORMED BY [employer]; [address] [place] [id number]; CARO LEDESMA MD [facility] In[facility]/Asp: L [id number] 20:10:23Andaguila Perdomo MD ? ? 09/18/2020 ?3:17 PML Inj/Asp: L knee on 09/18/2020 3:10 PMIndications: painDetails: 22 G needle, anterolateral approachMedications: (Bupivacaine [facility] number [id number] 3 mL 0.5% bupivacaine patient is applied today. Plus methylprednisolone 80 mg/mL 1 mL [facility] number [id number] patient supplied)Outcome: tolerated well, no immediate complications [...] to verify the correct patient, procedure, equipment, customer support analyst and site/side marked as required. Patient was prepped and draped in the usual sterile fashion (ChloraPrep was used to prep the area. ?Ethyl Chloride used for topical anesthesia. ).[facility][U] XRAY KNEE 3 VWS LEFT [id number] 13:40:00Images acquired, not reported on this accession number.[facility]
--- NOTE | 2021-12-12 18:25 | RAD REPORT ---
EXAM DESCRIPTION: USExtremity Venous Uni Ltd12/12/2021 6:17 pm CLINICAL HISTORY: Right leg pain COMPARISON: 2019 FINDINGS: Right common femoral, superficial femoral, popliteal and right posterior tibial veins are compressible and demonstrate augmentation. Doppler demonstrates good flow. A 2.8 centimeter Negron's cyst Grayscale, color and spectral analysis performed on all vessels IMPRESSION: No evidence of deep venous thrombosis involving the right lower extremity. 2.8 centimeter Negron's cyst
[2021-12-12] MEDS ORDERED: HYDROCODONE/APAP 7.5/325 MG TAB ONE (18:29)
[2021-12-12] MEDS ORDERED: GABAPENTIN 300 MG CAP ONE (19:29)
--- NOTE | 2021-12-12 20:05 | RAD REPORT ---
EXAM DESCRIPTION: US - Lower Extremity Artery Uni Ltd - 12/12/2021 7:19 pm CLINICAL HISTORY: Leg pain COMPARISON: None FINDINGS: The right common femoral,superficial femoral and right posterior tibial demonstrate triphasic wavefor ms The right popliteal artery demonstrates biphasic wave form. 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
--- NOTE | 2021-12-12 20:14 | EDPHYS ---
Physician Documentation [facility] Name: Pari Nicole Age: 71 yrs Sex: Female : 1950 Arrival Date: 12/12/2021 Time: 17:14 Bed 8 Private MD: Akosua Mcclellan ED Physician Luke Bird HPI: 12/12 20:09 This 71 yrs old Black Female presents to ER via Ambulatory with complaints of Leg Pain. kb 20:09 The patient presents with pain. The complaints affect the right femoral area. The kb patient has not recently seen a physician. 20:09 Context: The problem was sustained at home, resulted from an unknown cause, the patient kb can fully bear weight, the patient is able to ambulate. Onset: The symptoms/episode began/occurred 5 day(s) ago. Modifying factors: The symptoms are alleviated by standing. the symptoms are aggravated by reclined position. Associated signs and symptoms: The patient has no apparent associated signs or symptoms. Treatment prior to arrival includes: no previous treatment. Severity of symptoms: At their worst the symptoms were moderate, in the emergency department the symptoms are unchanged. The patient has experienced a previous episode. pt reports pain from right femoral area to right knee. Denies injury or trauma. States pain is better when she is standing, worse when laying down. Reports she had this same pain once before and had her appendix removed which resolved the pain. Denies abd pain, n/v/d, fever. 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 - Social history:: Smoking status: Patient denies any tobacco usage or history of. ROS: 20:07 Constitutional: Negative for fever, chills, and weight loss. kb 20:07 MS/extremity: Positive for pain, of the right femoral area. 20:07 All other systems are negative. Exam: 20:07 Constitutional: This is a well developed, well nourished patient who is awake, alert, kb and in no acute distress. Head/Face: Normocephalic, atraumatic. ENT: Moist Mucous membranes Respiratory: Respirations even and unlabored. No increased work of breathing. Talking in full sentences Skin: Warm, dry with normal turgor. Normal color. MS/ Extremity: Pulses equal, no cyanosis. Neurovascular intact. Full, normal range of motion. Neuro: Awake and alert, GCS 15, oriented to person, place, time, and situation. Moves all extremities. Normal gait. Psych: Awake, alert, with orientation to person, place and time. Behavior, mood, and affect are within normal limits. Vital Signs: 17:25 BP 138 / 74; Pulse 77; Resp 16; Temp 98.6; Pulse Ox 98% ; Weight 88.45 kg; Height 5 ft. jh5 5 in. (165.10 cm); Pain 8/10; 18:22 BP 155 / 88; Pulse 71; Resp 18; Pulse Ox 100% ; mb9 18:52 BP 150 / 78; Pulse 68; Resp 18; Pulse Ox 100% on R/A; mb9 19:56 BP 134 / 74; Pulse 57; Resp 17; Pulse Ox 98% ; vc1 17:25 Body Mass Index 32.45 (88.45 kg, 165.10 cm) jh5 MDM: 17:49 Patient medically screened. kb 20:06 Data reviewed: vital signs, nurses notes. Data interpreted: Pulse oximetry: on room air kb is 98 %. Interpretation: normal. Counseling: I had a detailed discussion with the patient and/or guardian regarding: the historical points, exam findings, and any diagnostic results supporting the discharge/admit diagnosis, radiology results, the need for outpatient follow up, a family practitioner, to return to the emergency department if symptoms worsen or persist or if there are any questions or concerns that arise at home. 12/12 17:34 Order name: US Extremity Venous Unilateral Ltd; Complete Time: 18:25 kb 12/12 18:26 Order name: LE Artery Unilateral Ltd ; Complete Time: 20:06 kb Administered Medications: 18:33 Drug: [employer] (HYDROcodone-acetaminophen) (7.5 mg-325 mg) 1 tabs Route: PO; mb9 18:51 Follow up: Response: No adverse reaction mb9 19:34 Drug: Gabapentin 300 mg Route: PO; vc1 Disposition Summary: 12/12/21 20:13 Discharge Ordered Location: Home kb Condition: Stable kb Diagnosis - Pain in right leg kb Followup: kb - With: Emergency Department - When: As needed - Reason: Worsening of condition Followup: kb - With: Private Physician - When: 2 - 3 days - Reason: Recheck today's complaints, Continuance of care, Re-evaluation by your physician Discharge Instructions: - Discharge Summary Sheet kb - Musculoskeletal Pain kb Forms: - Medication Reconciliation Form kb - Thank You Letter kb - Antibiotic Education kb - Prescription Opioid Use kb Prescriptions: - Neurontin 300 mg Oral Capsule - take 1 capsule by ORAL route At bedtime; 10 capsule; Refills: 0, Product kb Selection Permitted Addendum: 12/17/2021 04:02 Co-signature as Attending Physician, Luke Bird MD I agree with the assessment and c davis plan of care. Signatures: Dispatcher [employer] EDCori Shukla, IN HOUSE COUNSEL-C IN HOUSE COUNSEL-Luke Almeida MD MD cha Rees, Jessica, RN RN jh5 Kely Mukherjee RN RN vc1 Malu Vásquez RN RN mb9
--- NOTE | 2021-12-12 20:14 | ER ---
Nurse's Notes [facility] Name: Pari Nicole Age: 71 yrs Sex: Female : 1950 Arrival Date: 12/12/2021 Time: 17:14 Bed 8 Private MD: Akosua Mcclellan Diagnosis: Pain in right leg Presentation: 12/12 17:25 Chief complaint: Patient states: right groin /leg pain that radiates down her thigh x5 jh5 days causing so much pain she struggles walking. Coronavirus screen: Vaccine status: Patient reports receiving the 2nd dose of the covid vaccine. Client denies travel out of the [place] in the last 14 days. At this time, the client does not indicate any symptoms associated with coronavirus-19. Ebola Screen: Patient negative for fever greater than or equal to 101.5 degrees Fahrenheit, and additional compatible Ebola Virus Disease symptoms Patient denies exposure to infectious person. Patient denies travel to an Ebola-affected area in the 21 days before illness onset. Initial Sepsis Screen: Does the patient meet any 2 criteria? No. Patient's initial sepsis screen is negative. Does the patient have a suspected source of infection? No. Patient's initial sepsis screen is negative. Risk Assessment: Do you want to hurt yourself or someone else? Patient reports no desire to harm self or others. Onset of symptoms was December 07, 2021. 17:25 Method Of Arrival: Ambulatory [facility] 17:25 Acuity: YELENA 3 jh5 Triage Assessment: 17:27 General: Appears uncomfortable, obese, well groomed, well developed, well nourished, [facility] Behavior is calm, cooperative, appropriate for age. Pain: Complains of pain in right leg. 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 - Social history:: Smoking status: Patient denies any tobacco usage or history of. Screenin:24 Abuse screen: Denies threats or abuse. Denies injuries from another. Nutritional ha1 screening: No deficits noted. Tuberculosis screening: No symptoms or risk factors identified. Fall Risk None identified. Assessment: 18:20 General: Appears uncomfortable, Behavior is cooperative, appropriate for age. Pain: mb9 Complains of pain in right leg Pain does not radiate. Pain currently is 7 out of 10 on a pain scale. Quality of pain is described as sharp, stabbing, Aggravated by repositioning, laying down. Neuro: Level of Consciousness is awake, alert, obeys commands, Oriented to person, place, time, situation, Appropriate for age Manufacturing Executive are equal bilaterally Moves all extremities. Cardiovascular: Heart tones S1 S2 present. Respiratory: Airway is patent Breath sounds are clear bilaterally. GI: Abdomen is round. : No signs and/or symptoms were reported regarding the genitourinary system. EENT: No signs and/or symptoms were reported regarding the EENT system. Derm: Skin is intact, Skin is dry, Skin is normal, Skin temperature is warm. Musculoskeletal: Range of motion: intact in all extremities, Reports pain in right leg since 1 week ago. 18:52 Reassessment: pt currently laying in bed. Friend at bedside. mb9 19:12 Reassessment: report given to CYNTHIA Edge. mb9 19:30 Reassessment: Patient and/or family updated on plan of care and expected duration. Pain vc1 level reassessed. Patient is alert, oriented x 3, equal unlabored respirations, skin warm/dry/pink. Patient states symptoms have not improved. 20:24 Reassessment: Patient and/or family updated on plan of care and expected duration. Pain ha1 level reassessed. Patient is alert, oriented x 3, equal unlabored respirations, skin warm/dry/pink. Vital Signs: 17:25 BP 138 / 74; Pulse 77; Resp 16; Temp 98.6; Pulse Ox 98% ; Weight 88.45 kg; Height 5 ft. 5 5 in. (165.10 cm); Pain 8/10; 18:22 BP 155 / 88; Pulse 71; Resp 18; Pulse Ox 100% ; mb9 18:52 BP 150 / 78; Pulse 68; Resp 18; Pulse Ox 100% on R/A; mb9 19:56 BP 134 / 74; Pulse 57; Resp 17; Pulse Ox 98% ; vc1 17:25 Body Mass Index 32.45 (88.45 kg, 165.10 cm) [facility] ED Course: 17:14 Patient arrived in ED. mr 17:15 Akosua Mcclellan is Private Physician. mr 17:25 Cori Hillman FNP-C is [facility]. kb 17:25 Luke Bird MD is Attending Physician. kb 17:27 Triage completed. jh5 17:27 Arm band placed on right wrist. jh5 18:14 Malu Vásquez, RN is Primary Nurse. mb9 18:19 US Extremity Venous Unilateral Ltd In Process Unspecified. EDMS 19:21 LE Artery Unilateral Ltd US In Process Unspecified. EDMS 20:16 Primary Nurse role handed off by Malu Vásquez, RN bb 20:24 No provider procedures requiring assistance completed. Patient did not have IV access ha1 during this emergency room visit. 20:25 Patient has correct armband on for positive identification. ha1 Administered Medications: 18:33 Drug: [place] (HYDROcodone-acetaminophen) (7.5 mg-325 mg) 1 tabs Route: PO; mb9 18:51 Follow up: Response: No adverse reaction mb9 19:34 Drug: Gabapentin 300 mg Route: PO; vc1 Medication: 20:25 VIS not applicable for this client. ha1 Outcome: 20:13 Discharge ordered by MD. kb 20:24 Discharged to home ambulatory. ha1 20:24 Condition: stable 20:24 Discharge instructions given to patient, Instructed on discharge instructions, follow up and referral plans. medication usage, Demonstrated understanding of instructions, follow-up care, medications, Prescriptions given X 1. 20:25 Patient left the ED. ha1 Signatures: Dispatcher [employer] EDMT Cori Hillman FNP-C FNP-Ishmael Fernandez Malu mr Bella Veronica RN RN bb Brenda Kidd RN RN 5 Kely Mukherjee RN RN 1 Christy Lara RN RN ha1 Malu Vásquez, RN RN mb9
[2021-12-12 20:35] VITALS: TEMP 98.6
[2021-12-12 20:39] VITALS: BP 134/74; O2SAT 98
== END 2021-12-12 20:25 | disposition home or self-care (01) ==
LOC: ER 17:09
DX: M79.604 Pain in right leg (principal)
CPT/HCPCS: 93926; 93971; 99283

== ENCOUNTER 2021-12-13 08:45 | Emergency (ER) | payer OTHER ==
--- OUTSIDE RECORDS SUMMARY | 2021-12-13 08:50 | XMS REPORT | Continuity of Care Document ---
:1950 Author Organization [facility] t Address [address] [place] [address] Care Team Providers Name Role Phone Mclaughlin Popeye Dickens Primary Care Physician [phone] Akosua Marin Attending Clinician Unavailable Caro Shoemaker Attending Clinician Unavailable Nabil Noble MD Attending Clinician Anna Jackson MD Attending Clinician Catracho Ott Attending Clinician CATRACHO ANDERSON Attending Clinician Unavailable John Almodovar Attending Clinician THOMAS HAIDER Attending Clinician Unavailable Lab, Ang - Db Attending Clinician Unavailable JOHN BYRD Attending Clinician Unavailable Doctor Unassigned, [place] Attending Clinician Unavailable LING MA Attending Clinician [...] Expiration Date S mando [employer] MEDICARE PPO [id number] 2017 00:00:00 Problems Condition Condition Condition Status Onset Resolution Last Treating Co mments Source Name Details Category Date Date Treatment Clinician Date Left Left Disease Active Last [facility] Achilles Achilles 8-30 [facility] tendinitis tendinitis 00:00: t & Plan: 00 [...] 4-22 it y of n n 00:00: [place] [facility] Puncture Puncture Disease Active Unive rs wound of wound of 4-22 ity of right right 00:00: [place] upper arm, upper arm, 00 Me dical initial initial Branch encounter encounter Encounter Encounter Disease Active Uni vers to to 4-22 [place] of establish establish [place] Mixed Mixed Disease Active 2020-02 Univers hyperlipid hyperlipid 06 it y of emia emia 00:00: [place] [facility] Prediabete Prediabete Disease Active 2020-02 U nivers s s 1-06 ity of 00:00: [place] [facility] Primary Primary Disease Active Last [...] , and once she obtains it from [facility] we may administe r that for her. [...] done well for her. Follow-up as needed. Localized Localized Problem Active [facility] osteoarthr osteoarthr Ph ysici itis of itis of ans both knees both knees Edema Edema Problem Active [facility] Physici ans Swelling Swelling Problem Active UT of calf of calf Physici ans Prinzmetal Prinzmetal Disease Active [facility] Allergic Disease Active Unive rs rhinitis rhinitis [facility] Anxiety Anxiety Disease [facility] Hypertensi Hypertensi Disease Active U nivers on on [facility] Allergies, Adverse Reactions, Alerts Allergy Allergy Status Severity Reaction(s) Onset Inactive Treating Comm ents Source Name Type Date Date Clinician Adhesive Drug Active Unknown 2018-02 [facility] Tape Allergy 2-02 Health 00:00: 00 No Known DA Active U 2006- [facility] - [place] [facility] No Known DA Active U 2006- [facility] Drug [place] Allergie 00:00: [facility] No Known DA Active U 2006-02 [facility] Food [place] Allergie 00:00: [facility] No Known DA Active U 2006-02 [facility] Other [place] Allergie 00:00: [facility]ope s 00 [facility] No Known DA Active U 2002-02 [facility] Drug 0 [place] Intolera 00:00: Orthope nces 00 dic Hospita l NO KNOWN Drug Active Univers ALLERGIE Class ity of S [facility] Family History Family Member Diagnosis Comments Start Date Stop Date Source Father Family history of cardiac [facility] disorder Father Family history of [facility] hypertension Father Family history of [facility] myocardial infarction Social History Social Habit Start Date Stop Date Quantity Comments Source History [facility] Alcohol Std Drinks History [facility] Health Alcohol Binge History [facility] Health Alcohol Comment Exposure to 2021-10-12 2021-10-22 Not sure [facility] SARS-CoV-2 (event) 00:00:00 13:27:00 Alcohol intake 2021-10-22 2021-10-22 Lifetime [facility] 00:00:00 00:00:00 non-drinker (finding) Tobacco use and 2020-09-18 2020-09-18 Smokeless tobacco [facility] exposure 00:00:00 00:00:00 non-user History SDOH 2020-09-18 2020-09-18 1 [facility] Alcohol Frequency 00:00:00 00:00:00 Sex Ass[birth year] At [birth year] [facility] 00:00:00 00:00:00 Smoking Status Start Date Stop Date Source Never smoker [facility] Medications Ordered Filled Start Stop Current Ordering Indication Dosage Frequency Signature Comments Components Source Medication Medication Date Date Medication? Clinician (SIG) Name Name ketorolac 2021- No [id number] 30mg Un breonna (TORADOL) 5-23 05-23 ity of injection 22:45: 21:37 [place] 30 mg 00 :00 Medical Branch ketorolac 2021- No [id number] 30mg 30 mg, Univers (TORADOL) 07-15 Intramuscu ity of injection 22:45: 21:37 [place], ONCE, [place] 30 mg 00 :00 1 dose, On Medical Mon Branch 07/15/21 at 1745, Routine
cannon crewmember approving Restricted medication : ANNA JACKSON cyclobenzap Yes [id number] 5mg Take 1 Univers rine 5 mg 07-15 tablet by ity o f tablet 00:00: mouth at [place] 00 bedtime. Medical Branch mupirocin 2 2021- No [id number] Apply to Univers % ointment 06-14 [id number] area(s) 3 i ty of 00:00: 04:59 (three) [place] 00 :00 times Medical daily for Branch 14 days. mupirocin 2 2021- No [id number] Apply to Univers % ointment 06-14 [id number] area(s) 3 i ty of 00:00: 04:59 (three) [place] 00 :00 times Medical daily for Branch 14 days. mupirocin 2 2021- No [id number] Apply to Univers % ointment 06-14 [id number] area(s) 3 i ty of 00:00: 04:59 (three) [place] 00 :00 times Medical daily for Branch 14 days. mupirocin 2 2021- No [id number] Apply to Univers % ointment 06-14 [id number] area(s) 3 i ty of 00:00: 04:59 (three) [place] 00 :00 times Medical daily for Branch 14 days. mupirocin 2 2021- No [id number] Apply to Univers % ointment 06-14 [id number] area(s) 3 i ty of 00:00: 04:59 (three) [place] 00 :00 times Medical daily for Branch 14 days. mupirocin 2 2021- No [id number] Apply to Univers % ointment 06-14 [id number] area(s) 3 i ty of 00:00: 04:59 (three) [place] 00 :00 times Medical daily for Branch 14 days. amLODIPine Yes 5mg Take 5 mg Un breonna 5 mg tablet 4-04 by mouth ity of 00:00: daily. [place] [facility] amLODIPine 2022-0 Yes 5mg Take 5 mg Un breonna 5 mg tablet 4-04 by mouth ity of 00:00: daily. [place] [facility] amLODIPine 2022-0 Yes 5mg Take 5 mg Un breonna 5 mg tablet 4-04 by mouth ity of 00:00: daily. [place] [facility] amLODIPine 2022-0 Yes 5mg Take 5 mg Un breonna 5 mg tablet 4-04 by mouth ity of 00:00: daily. [place] [facility] amLODIPine 2022-0 Yes 5mg Take 5 mg Un breonna 5 mg tablet 4-04 by mouth ity of 00:00: daily. [place] [facility] amLODIPine 2022-0 Yes 5mg Take 5 mg Un breonna 5 mg tablet 4-04 by mouth ity of 00:00: daily. [place] [facility] amLODIPine 2022-0 Yes 5mg Take 5 mg Un breonna 5 mg tablet 4-04 by mouth ity of 00:00: daily. [address] Branch nitroglycer 2020-[address] 0.4 [...] as needed for Chest pain. losartan 50 1 Yes Univer s mg tablet 0-19 ity of 00:00: [place] [facility] losartan 50 2020-1 Yes Univer s mg tablet 0-19 ity of 00:00: [place] [facility] losartan 50 1 Yes Univer s mg tablet 0-19 ity of 00:00: [place] [facility] losartan 50 2020-1 Yes Univer s mg tablet 0-19 ity of 00:00: [place] [facility] losartan 50 2020-1 Yes Univer s mg tablet 0-19 ity of 00:00: [place] [facility] losartan 50 2020-1 Yes Univer s mg tablet 0-19 ity of 00:00: [place] [facility] losartan 50 2020-1 Yes Univer s mg tablet 0-19 ity of 00:00: [place] [facility] metoprolol 1-0 Yes 1{tbl} Take [...] by mouth ity of tablet 00:00: daily. [place] [facility] olmesartan 2020-0 Yes 20mg Take 20 mg U nivers 20 mg 6-28 by mouth ity of tablet 00:00: daily. [place] [address] [facility] olmesartan 2021-0 Yes 20mg Take 20 mg U nivers 20 mg 6-28 by mouth ity of tablet 00:00: daily. [facility] olmesartan 2021-0 Yes 20mg Take 20 mg U nivers 20 mg 6-28 by mouth ity of tablet 00:00: daily. [facility] olmesartan 2021-0 Yes 20mg Take 20 mg U nivers 20 mg 6-28 by mouth ity of tablet 00:00: daily. [facility] olmesartan 2021-0 Yes 20mg Take 20 mg U nivers 20 mg 6-28 by mouth ity of tablet 00:00: daily. [place] [facility] olmesartan 2021-0 Yes 20mg Take 20 mg U nivers 20 mg 6-28 by mouth ity of tablet 00:00: daily. [facility] olmesartan 2021-0 Yes 20mg QD Take 20 [...] (one) time tablet 00 each day. triamcinolo 2020- Yes [id number] Apply to Univers ne 0.025 % 3-11 area(s) 2 ity of cream 00:00: (two) [place] 00 times Medical daily. Branch fluticasone 2020-0 Yes [id number] 2{spray Use 2 Univers propionate 3-11 } Sprays in ity of 50 00:00: each [place] mcg/actuati 00 nostril Medic al on nasal daily. Branch spray loratadine 0 Yes [id number] 10mg Take 1 U nivers 10 mg 3-11 tablet by ity of tablet 00:00: mouth [place] 00 daily. Medical Branch triamcinolo Yes [id number] Apply to Univers ne 0.025 % 3-11 area(s) 2 ity of cream 00:00: (two) times Medical daily. Branch fluticasone 0 Yes [id number] 2{spray Use 2 Univers propionate 3-11 } Sprays in ity of 50 00:00: each [place] mcg/actuati 00 nostril Medic al on nasal daily. Branch spray loratadine 0 Yes [id number] 10mg Take 1 U nivers 10 mg 3-11 tablet by ity of tablet 00:00: mouth [place] 00 daily. Medical Branch triamcinolo 0 Yes [id number] Apply to Univers ne 0.025 % 3-11 area(s) 2 ity of cream 00:00: (two) [place] 00 times Medical daily. Branch fluticasone Yes [id number] 2{spray Use 2 Univers propionate 3-11 } Sprays in ity of 50 00:00: each [place] mcg/actuati 00 nostril Medic al on nasal daily. Branch spray loratadine Yes [id number] 10mg Take 1 U nivers 10 mg 3-11 tablet by ity of tablet 00:00: mouth [place] 00 daily. Medical Branch triamcinolo Yes [id number] Apply to Univers ne 0.025 % 3-11 area(s) 2 ity of cream 00:00: (two) [place] 00 times Medical daily. Branch fluticasone Yes [id number] 2{spray Use 2 Univers propionate 3-11 } Sprays in ity of 50 00:00: each [place] mcg/actuati 00 nostril Medic al on nasal daily. Branch spray loratadine 0 Yes [id number] 10mg Take 1 U nivers 10 mg 3-11 tablet by ity of tablet 00:00: mouth [place] 00 daily. Medical Branch triamcinolo Yes [id number] Apply to Univers ne 0.025 % 3-11 area(s) 2 ity of cream 00:00: (two) [place] 00 times Medical daily. Branch fluticasone 0 Yes [id number] 2{spray Use 2 Univers propionate 3-11 } Sprays in ity of 50 00:00: each [place] mcg/actuati 00 nostril Medic al on nasal daily. Branch spray loratadine 0 Yes [id number] 10mg Take 1 U nivers 10 mg 3-11 tablet by ity of tablet 00:00: mouth [place] 00 daily. Medical Branch triamcinolo Yes [id number] Apply to Univers ne 0.025 % 3-11 area(s) 2 ity of cream 00:00: (two) [place] 00 times Medical daily. Branch fluticasone Yes [id number] 2{spray Use 2 Univers propionate 3-11 } Sprays in ity of 50 00:00: each [place] mcg/actuati 00 nostril Medic al on nasal daily. Branch spray loratadine Yes [id number] 10mg Take 1 U nivers 10 mg 3-11 tablet by ity of tablet 00:00: mouth 00 daily. Medical Branch triamcinolo Yes [id number] Apply to Univers ne 0.025 % 3-11 area(s) 2 ity of cream 00:00: (two) [place] 00 times Medical daily. Branch fluticasone Yes [id number] 2{spray Use 2 Univers propionate 3-11 } Sprays in ity of 50 00:00: each [place] mcg/actuati 00 nostril Medic al on nasal daily. Branch spray loratadine Yes [id number] 10mg Take 1 U nivers 10 mg 3-11 tablet by ity of tablet 00:00: mouth 00 daily. Medical Branch metoprolol Yes TK 1 T PO Un breonna succinate 9-04 D. ity of XL 100 mg 00:00: [place] 24 hr 00 Medical tablet Branch metoprolol Yes TK 1 T PO Un breonna succinate 9-04 D. ity of XL 100 mg 00:00: [place] 24 hr 00 Medical tablet Branch metoprolol Yes TK 1 T PO Un breonna succinate 9-04 D. ity of XL 100 mg 00:00: [place] 24 hr Medical tablet Branch metoprolol Yes TK 1 T PO Un breonna succinate 9-04 D. ity of XL 100 mg 00:00: [place] 24 hr Medical tablet Branch metoprolol Yes TK 1 T PO Un breonna succinate 9-04 D. ity of XL 100 mg 00:00: [place] 24 hr 00 Medical tablet Branch metoprolol Yes TK 1 T PO Un breonna succinate 9-04 D. ity of XL 100 mg 00:00: [place] 24 hr 00 Medical tablet Branch metoprolol Yes TK 1 T PO Un breonna succinate -04 D. ity of XL 100 mg 00:00: [place] 24 hr 00 Medical tablet Branch Metoprolol [...] Status Comments Sour e Immunization Name Name TDAP 2021-06-14 Completed University of 00:00:00 [facility] TDAP 2021-06-14 Completed University of 00:00:00 [facility] TDAP 2021-06-14 Completed University of 00:00:00 [facility] TDAP 2021-06-14 Completed University of 00:00:00 [facility] TDAP 2021-06-14 Completed University of 00:00:00 [facility] TDAP 2021-06-14 Completed University of 00:00:00 [facility] TDAP 2021-06-14 Completed University of 00:00:00 [facility] SARS-COV-2 COVID-19 2020-12-25 Completed Unive rsity of MODERNA BOOSTER 00:00:00 [facility] [place] VACCINE [place] SARS-COV-2 COVID-2020-12-25 Completed Unive rsity of MODERNA BOOSTER 00:00:00 [facility] [place] VACCINE [place] SARS-COV-2 COVID-19 2020-12-25 Completed Unive rsity of MODERNA BOOSTER 00:00:00 [facility] [place] VACCINE [place] SARS-COV-2 COVID-19 2020-12-25 Completed Unive rsity of [...] Dose 2020-10-24 Completed Unive rsity of 00:00:00 [facility] Branch Influenza High Dose 2020-10-24 Completed Unive rsity of 00:00:00 [facility] Influenza High Dose 2020-10-24 Completed Unive rsity of 00:00:00 [facility] Influenza High Dose 2020-10-24 Completed Unive rsity of 00:00:00 [facility] Influenza High Dose 2020-10-24 Completed Unive rsity of 00:00:00 [facility] Influenza High Dose 2020-10-24 Completed Unive rsity of 00:00:00 [facility] Influenza High Dose 2020-10-24 Completed Unive rsity of 00:00:00 [facility] SARS-COV-2 COVID-19 2020-04-28 Completed Unive rsity of MODERNA VACCINE 00:00:00 [facility] ical Branch SARS-COV-2 COVID-19 2020-04-28 Completed Unive rsity of MODERNA VACCINE 00:00:00 [place] [facility] ical Branch SARS-COV-2 COVID-19 2020-04-28 Completed Unive rsity of MODERNA VACCINE 00:00:00 [place] [facility] ical Branch SARS-COV-2 COVID-19 2020-04-28 Completed Unive rsity of MODERNA VACCINE 00:00:00 [place] [facility] ical Branch SARS-COV-2 COVID-19 2020-04-28 Completed Unive rsity of MODERNA VACCINE 00:00:00 [facility] ical Branch SARS-COV-2 COVID-19 2020-04-28 Completed Unive rsity of MODERNA VACCINE 00:00:00 [facility] [place] [facility] SARS-COV-2 COVID-19 2020-04-28 Completed Unive rsity of MODERNA VACCINE 00:00:00 [facility] [place] [facility] SARS-COV-2 COVID-19 2020-03-31 Completed Unive rsity of MODERNA VACCINE 00:00:00 [facility] [place] [facility] SARS-COV-2 COVID-19 2020-03-31 Completed Unive rsity of MODERNA VACCINE 00:00:00 [facility] [place] [facility] SARS-COV-2 COVID-19 2020-03-31 Completed Unive rsity of MODERNA VACCINE 00:00:00 [facility] [place] [facility] SARS-COV-2 COVID-19 2020-03-31 Completed Unive rsity of MODERNA VACCINE 00:00:00 [facility] [place] [facility] SARS-COV-2 COVID-19 2020-03-31 Completed Unive rsity of MODERNA VACCINE 00:00:00 [facility] [place] [facility] SARS-COV-2 COVID-19 2020-03-31 Completed Unive rsity of MODERNA VACCINE 00:00:00 [facility] [place] [facility] SARS-COV-2 COVID-19 2020-03-31 Completed Unive rsity of MODERNA VACCINE 00:00:00 [facility] [place] [facility] Pneumococcal 13 2018-11-09 Completed Universit y of Conjugate, PCV13 00:00:00 [facility] dical (Prevnar 13) Branch Zoster Vaccine 2018-11-09 Completed University of Recombinant 00:00:00 [facility] Pneumococcal 13 2018-11-09 Completed Universit y of Conjugate, PCV13 00:00:00 [facility] dical (Prevnar 13) Branch Zoster Vaccine 2018-11-09 Completed University of Recombinant 00:00:00 [facility] Pneumococcal 13 2018-11-09 Completed Universit y of Conjugate, PCV13 00:00:00 [facility] dical (Prevnar 13) Branch Zoster Vaccine 2018-11-09 Completed University of Recombinant 00:00:00 [facility] Pneumococcal 13 2018-11-09 Completed Universit y of Conjugate, PCV13 00:00:00 [facility] dical (Prevnar 13) Branch Zoster Vaccine 2018-11-09 Completed University of Recombinant 00:00:00 [facility] Pneumococcal 13 2018-11-09 Completed Universit y of Conjugate, PCV13 00:00:00 [facility] dical (Prevnar 13) Branch Zoster Vaccine 2018-11-09 Completed University of Recombinant 00:00:00 [facility] Pneumococcal 13 2018-11-09 Completed Universit y of Conjugate, PCV13 00:00:00 [facility] dical (Prevnar 13) Branch Zoster Vaccine 2018-11-09 Completed University of Recombinant 00:00:00 [facility] Pneumococcal 13 2018-11-09 Completed Universit y of Conjugate, PCV13 00:00:00 [facility] dical (Prevnar 13) Branch Zoster Vaccine 2018-11-09 Completed University of Recombinant 00:00:00 [facility] Vital Signs Vital Name Observation Time Observation Value Comments Source Systolic blood 2021-07-15 21:24:00 140 mm[Hg] Univer sity of pressure [facility] Diastolic blood 2021-07-15 21:24:00 79 mm[Hg] Unive rsity of [facility] Heart rate 2021-07-15 21:24:00 63 /min Universi ty [facility] Body temperature 2021-07-15 21:24:00 36.67 Sridevi [facility] Respiratory rate 2021-07-15 21:24:00 18 /min [facility] Body height 2021-07-15 21:24:00 165.1 cm Universi ty [facility] Body weight 2021-07-15 21:24:00 89.359 kg Universi ty [facility] BMI 2021-07-15 21:24:00 32.78 kg/m2 [facility] Oxygen saturation in 2021-07-15 21:24:00 98 /min [facility] Arterial blood by [facility] Pulse oximetry Branch Systolic blood 2021-06-14 14:06:00 116 mm[Hg] Univer sity of [facility] Diastolic blood 2021-06-14 14:06:00 72 mm[Hg] Unive rsity of pressure [facility] Heart rate 2021-06-14 14:06:00 72 /min Universi ty of [facility] Body height 2021-06-14 14:06:00 166.4 cm Universi ty [facility] Body weight 2021-06-14 14:06:00 89.676 kg Universi ty [facility] BMI 2021-06-14 14:06:00 32.40 kg/m2 [facility] Oxygen saturation in 2021-06-14 14:06:00 97 /min University Arterial blood by [facility] Pulse oximetry Branch Procedures Procedure Date / Time Performing Clinician Source Performed TSH, 3RD GENERATION-Q 2021-06-14 15:16:00 Doctor Unassigned, [facility] Name Medical [place] VITAMIN B12-Q 2021-06-14 15:16:00 Doctor Unassigned, [facility] y [facility] [place] Medical [place] TDAP VACCINE, >11 YRS, IM 2021-06-14 14:35:52 [facility] [place] ARTHROCENTESIS 2020-09-18 20:10:23 Nabil Noble [place] He alth ASPIR&/INJ MAJOR JT/BURSA W/O US US Extremity lower venous 2018-12-13 00:00:00 [facility] doppler bilat [id number] [U] XRAY KNEE 3 VWS LEFT 2018-12-10 00:00:00 [facility] [id number] [facility] Tubal Ligation [facility]ste[facility] History of Breast Surgery [facility] Lumpectomy History of Bunion [facility] Correction With Metatarsal Osteotomy Encounters Start End Encounter Admission Attending Care Care Encounter Source Date/Time Date/Time Type Type Clinicians Facility Department ID 2021-09-16 Outpatient KATYA Marin [facility] [id number] Common 09:11:01 Akos[place] [id number] [facility] 2020-11-13 Inpatient ERNA BRADLEY ShoemakerBEV ADMI [id number] [facility] 09[facility]00:00 [facility] Webber [place] [facility] 2020-10-16 Outpatient [facility] [id number] [place] 11:32:42 Health 2020-09-17 Outpatient [facility] [id number] [place] 16:44:43 Health 2021-10-22 2021-10-22 Outpatient [facility] [id number] [place] 13:50:00 14:58:30 Health 2021-10-22 2021-10-22 Outpatient [facility] [id number] [place] 13:45:00 14:56:04 Health 2021-10-22 2021-10-22 Office Fara ALVES [facility] [id number] [place] 13:45:00 14:55:31 Visit ABILIO Perdomo [id number] H [facility] [id number] [address] 0 [id number] 2021-09-16 2021-09-16 ambulatory STLMLC STLMLC [id number] Common 00:00:00 00:00:00 [facility] 2021-09-16 2021-09-16 ambulatory STLMLC STLMLC [id number] Common 00:00:00 00:00:00 [facility] 2021-07-15 2021-07-15 Urgent Anna Jackson [facility] [id number] Univers 16:20:00 16:40:00 Catracho Nguyen [facility] [id number] ity of [place] [id number] Salbador as SAI?BLEA [id number] [address] MEDICAL OFFICE [facility] 2021-07-15 2021-07-15 [facility] [id number] Univers 16:20:00 16:20:00 CATRACHO chen [facility] 2021-06-26 2021-06-[address] [facility] [id number] Univers 00:00:00 00:00:00 Critical access hospital [id number] it y of [place] [id number] Salbador as SAI?BLEA [phone] [address] OFFICE [facility] 2021-06-25 2021-06-[address] [facility] [id number] Univers 00:00:00 00:00:00 John HEALTH [id number] it y of [place] [id number] Salbador as SAI?BLEA [id number] [address] OFFICE [facility] 2021-06-17 2021-06-17 Out[facility] [id number] Univers 08:30:00 08:30:00 THOMAS napoles [facility] 2021-06-14 2021-06-14 Pbx Mechanic Lab, Ang - Db [facility] [id number] Univers 10:00:00 10:15:00 Visit John Byrd [id number] [facility] [id number] [place] as SAI?BLEA [phone] Nc dicnancy VILLA [address] [place] MEDICAL OFFICE BUILDING 2021-06-14 2021-06-14 Outpatient R CARSON [facility] [id number] Univers 10:00:00 10:00:00 JOHN napoles [facility] 2021-06-14 2021-06-14 Outpatient R CARSON [facility] [id number] Univers 09:00:00 09:53:00 JOHN napoles [facility] 2021-06-14 2021-06-14 Office Carson [facility] [id number] Univers 09:00:00 09:53:00 Visit John [facility] [id number] it y of [place] [id number] Salbador as SAI?BLEA [phone] Nc armand [facility] 044 [facility] OFFICE [facility] 2021-06-14 2021-06-14 Orders Doctor WINSTON [id number] Univers 00:00:00 00:00:00 Only Unassigned, JAE [id number] ity of [place] [facility] [id number] Salbador as [id number] [facility] 009 [place] 2021-01-21 2021-01-21 Outpatient R JYOTI [facility] [id number] Univers 09:53:40 23:59:00 WONDIFUL ity o f [facility] 2021-01-21 2021-01-21 [facility] [id number] Univers 09:40:00 23:59:00 Encounter Wondiful [facility] [id number] ity of [facility] [id number] [place] [phone] [facility] 800 [place] 2021-01-21 2021-01-21 Orders Doctor WINSTON 1.2.840.114 [id number] Univers 00:00:00 00:00:00 Only Unassigned, JAE 350.1.13.10 ity of [place] [facility] 4.2.7.2.686 [place] as [phone] [address] 2020-12-28 2020-12-28 Telephone Jyoti [facility] 1.2.840.114 [id number] Univers 00:00:00 00:00:00 Wondiful A HEALTH 350.1.13.10 it[facility] 4.2.7.2.686 [place] SAI?BLEA [phone] Nc armand VILLA 044 [place] MEDICAL [facility]ICE [facility] 2020-12-25 2020-12-25 Outpatient R AKILAH [facility] [id number] Univers 09:30:00 09:30:00 BUTCH napoles [facility] 2020-12-25 2020-12-25 Imm/Inj Nurse, Adc Pob Immunization [facility] 1.2.840.114 [id number] Univers 09:09:07 09:11:08 Visit Butch Isbell 350.1.13 .10 ity [place]2.[place] PROF[place] [phone] [place] armand LEMUS 421 [employer] 2020-12-24 2020-12-24 Pbx [facility], Ang - [facility] 1.2.840.1 [id number] Univers 07:44:02 07:59:02 Visit Ling Ma HEALTH 350.1.13.1 0 ity of [place] 4.2.7.2.686 [place] SAI?BLEA [phone] Nc chungnancy ALLENMAGALY 353 [place] MEDICAL [facility] 2020-12-24 2020-12-24 Outpatient R JYOTI [facility] [id number] Univers 07:45:00 07:45:00 WONDIFUL ity o f [facility] 2020-12-24 2020-12-24 Outpatient R [facility] [id number] Univers 07:45:00 07:45:00 ity of [facility] 2020-12-24 2020-12-24 Orders WISNTON Ma 1.2.840.114 [id number] Univers 00:00:00 00:00:00 Only Wondiful A JAE 350.1.13.10 ity of [facility] 4.2.7.2.686 [place] [phone] [address] 2020-12-21 2020-12-21 [facility] [id number] Univers 08:15:00 08:15:00 WONDIFUL ity o f [facility] 2020-12-17 2020-12-17 Outpatient [facility] [id number] Univers 15:00:00 16:10:37 WONDIFUL ity o f [facility] 2020-12-17 2020-12-17 [facility] 1.2.840.114 [id number] Univers 14:58:31 16:10:37 [facility] 350.1.13.10 ity of [place] 4.2.7.2.686 [place] SAI?BLEA [phone] [address] MEDICAL OFFICE BUILDING 2020-12-17 2020-12-17 Outpatient [facility] [id number] [facility] 15:00:00 15:00:[address] [facility] 2020-10-16 2020-10-16 [facility] 1.2.840.114 [id number] [place] 11:14:40 11:29:40 Visit ABILIO Perdomo 350.1.13.58 H [facility] 9.2.7.2.686 [place] 2 [phone] [id number] 2020-09-18 2020-09-18 [facility] 1.2.840.114 [id number] [place] 14:49:19 15:15:28 Visit NolaABILIO jackson 350.1.13.58 H [facility] 9.2.7.2.686 [place] 4 [id number] [id number] 2020-06-29 2020-06-29 Orders Doctor MONTERO 1.2.840.114 [id number] Univers 00:00:00 00:00:00 Only Unassigned, JAE 350.1.13.10 ity of [place] [facility] 4.2.7.2.686 [place] as [phone] [facility] 009 [place] 2020-06-29 2020-06-29 Orders Doctor WINSTON 1.2.840.114 [id number] 00:00:00 00:00:00 Only Unassigned, JAE 350.1.13.10 [place] [facility] 4.2.7.2.686 [phone] 009 2020-05-03 2020-05-03 [facility] 1.2.840.114 [id number] Univers 08:45:59 10:06:08 Visit Wondiful A Health 350.1.13.[address] 4.2.7.2.686 [place] Professio [phone] Nc dical [address] One 2020-05-03 2020-05-03 [facility] 1.2.840.114 [id number] 08:45:59 10:06:08 Visit Wondiful A Health [address]13.[address] 4.2.7.2.686 Professio [phone] nal [facility] Office [facility] One 2020-05-03 2020-05-03 Outpatient [facility] [id number] Univers 09:00:00 09:00:00 WONDIFUL ity o f [facility] 2020-04-28 2020-04-28 Outpatient [facility] [id number] Univers 14:30:00 14:30:00 ity [facility] 2020-03-31 2020-03-31 Outpatient [facility] [id number] Univers 14:40:00 14:40:00 ity [facility] 2019-10-11 2019-10-11 Outpatient ASKENASY, MHSE MHSE [id number] MH 09:30:00 16:44:[address] [facility] 2019-05-25 2019-05-25 Outpatient Raju_P [facility] G [id number] [place] 02:40:00 02:40:00 [facility] 2018-12-20 2018-12-20 [facility] Orthopedics [id number] [place] 13:30:00 13:30:00 t; FARA PERDOMO, - [place] NABIL Shaver ans ANDREW, M.D. M.D. 2018-12-13 2018-12-13 [facility] Orthopedics [id number] [place] 13:15:00 13:15:00 t; FARA PERDOMO, - [place] NABIL Shaver ans ANDREW, M.D. M.D. Results [...] ALEXSANDRA (test code = ALEXSANDRA) PERFORMED BY [employer] [facility]; [address] [place] [phone]; CARO LEDESMA [facility] [id number] 08:00:00 Test Item Value Reference Range Interpretation Comments VITAMIN B12-Q (test 726 pg/mL 200-1100 code = 2132-9) ALEXSANDRA (test code = ALEXSANDRA) PERFORMED BY [employer] [facility]; [address] [place] [phone]; CARO LEDESMA MD [facility] In[facility]/Asp: L [id number] 20:10:23Andaguila Perdomo MD ? ? 09/18/2020 ?3:17 PML Inj/Asp: L knee on 09/18/2020 3:10 PMIndications: painDetails: 22 G needle, anterolateral approachMedications: (Bupivacaine [facility] number 71662-522-53 3 mL 0.5% bupivacaine patient is applied today. Plus methylprednisolone 80 mg/mL 1 mL [facility] number [id number] patient supplied)Outcome: tolerated well, no immediate complications [...] to verify the correct patient, procedure, equipment, integrated logistics support manager and site/side marked as required. Patient was prepped and draped in the usual sterile fashion (ChloraPrep was used to prep the area. ?Ethyl Chloride used for topical anesthesia. ).[facility][U] XRAY KNEE 3 VWS LEFT [id number] 13:40:00Images acquired, not reported on this accession number.[facility]
[2021-12-13] MEDS ORDERED: ONDANSETRON 4 MG/2 ML VIAL ONE (09:32)
[2021-12-13] MEDS ORDERED: PHENAZOPYRIDINE 100MG TAB PO ONE (09:32)
[2021-12-13] MEDS ORDERED: MORPHINE 4 MG/ML SYR ONE (09:32)
[2021-12-13 09:37] LABS: Absolute Lymphocytes (CBC) 1.6 K/uL (0.7-4.9); Hematocrit 38.2 % (36.0-45.0); Lymphocytes % 28.6 % (15.3-44.8); MCV 91.6 fL (80-100); MPV 8.1 fL (7.6-11.3); RBC Red Blood Cell Count 4.16 M/uL (3.86-4.86)
[2021-12-13 09:55] LABS: Albumin 3.6 g/dL (3.4-5.0); Bilirubin Total 0.8 mg/dL (0.2-1.0); Potassium 3.7 mmol/L (3.5-5.1); Protein, Total 7.6 g/dL (6.4-8.2)
[2021-12-13 10:51] LABS: Urine Blood Negative (Negative); Urine Glucose Negative (Negative); Urine Protein Negative (Negative); Urine Specific Gravity >=1.030 (1.005-1.030); Urine pH 5.5 (5.0-7.0)
--- NOTE | 2021-12-13 10:53 | RAD REPORT ---
EXAM DESCRIPTION: CTAbdomen Pelvis W Contrast - 12/13/2021 10:38 am CLINICAL HISTORY: Abdominal pain. lower abdominal pain COMPARISON: No comparisons TECHNIQUE: Biphasic CT imaging of the abdomen and pelvis was performed with 100 ml non-ionic IV cont rast. All CT scans are performed using dose optimization technique as appropriate and may include automated exposure control or mA/KV adjustment according to patient size. FINDINGS: The lung bases are clear. The liver demonstrates diffuse fatty infiltration. Cholecystectomy. Spleen, pancreas, adrenal glands and kidneys are within normal limits. No bowel obstruction, free air, free fluid or abscess. Appendectomy. No evidence of significant lym phadenopathy. Mild lumbar degenerative changes. IMPRESSION: No acute intra-abdominal or pelvic finding. Diffuse fatty liver.
--- NOTE | 2021-12-13 11:20 | ER ---
Nurse's Notes [facility] Name: Pari Nicole Age: 71 yrs Sex: Female : 1950 Arrival Date: 12/13/2021 Time: 08:48 Bed 14 Private MD: Akosua Mcclellan Diagnosis: Dysuria;Lower abdominal pain, unspecified Presentation: 12/13 09:20 Chief complaint: Patient states: patient started with right lower abdominal pain x 1 db week radiating to right leg. Stabbing pain in abdomen. Radiating to back. Coronavirus screen: Vaccine status: Patient reports receiving the 2nd dose of the covid vaccine. Client denies travel out of the [place] in the last 14 days. At this time, the client does not indicate any symptoms associated with coronavirus-19. Ebola Screen: Patient negative for fever greater than or equal to 101.5 degrees Fahrenheit, and additional compatible Ebola Virus Disease symptoms Patient denies exposure to infectious person. Patient denies travel to an Ebola-affected area in the 21 days before illness onset. No symptoms or risks identified at this time. Initial Sepsis Screen: Does the patient meet any 2 criteria? No. Patient's initial sepsis screen is negative. Does the patient have a suspected source of infection? No. Patient's initial sepsis screen is negative. Risk Assessment: Do you want to hurt yourself or someone else? Patient reports no desire to harm self or others. Onset of symptoms was December 12, 2021. 09:20 Method Of Arrival: Ambulatory db 09:20 Acuity: YELENA 3 db Triage Assessment: 09:57 General: Appears in no apparent distress. comfortable, Behavior is calm, cooperative, db appropriate for age, quiet. Pain: Complains of pain in right lower abdomen. GI: Abdomen is flat, non-distended, Reports lower abdominal pain. : Reports burning with urination, cramping. Derm: No deficits noted. No signs and/or symptoms reported regarding the dermatologic system. Musculoskeletal: No deficits noted. No signs and/or symptoms reported regarding the musculoskeletal system. Injury Description:. 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 - Social history:: Smoking status: Patient denies any tobacco usage or history of. Screenin:20 Abuse screen: Denies threats or abuse. Denies injuries from another. Nutritional db screening: No deficits noted. Tuberculosis screening: No symptoms or risk factors identified. 10:00 Fall Risk None identified. No fall in past 12 months (0 pts). No secondary diagnosis (0 db pts). IV access (20 points). Ambulatory Aid- None/Bed Rest/Nurse Assist (0 pts). Gait- Normal/Bed Rest/Wheelchair (0 pts) Mental Status- Oriented to own ability (0 pts). Total Gomez Fall Scale indicates No Risk (0-24 pts). Assessment: 09:20 Reassessment: Patient appears in no apparent distress at this time. No changes from db previously documented assessment. Patient and/or family updated on plan of care and expected duration. Pain level reassessed. Patient is alert, oriented x 3, equal unlabored respirations, skin warm/dry/pink. General: Appears in no apparent distress. Behavior is calm, cooperative, appropriate for age, quiet. Neuro: No deficits noted. 09:30 Cardiovascular: No deficits noted. Respiratory: No deficits noted. GI: Abdomen is flat, db non-distended, Bowel sounds present X 4 quads. Abd is soft Abdomen is tender to palpation in right lower quadrant. : No deficits noted. : Reports burning with urination. EENT: No deficits noted. No signs and/or symptoms were reported regarding the EENT system. Derm: No deficits noted. Musculoskeletal: No deficits noted. No signs and/or symptoms reported regarding the musculoskeletal system. Vital Signs: 09:20 BP 133 / 85; Pulse 69; Resp 16; Temp 98.9; Pulse Ox 99% ; Weight 88.9 kg; Height 5 ft. db 5 in. (165.10 cm); Pain 8/10; 10:45 BP 144 / 72; Pulse 16; Resp 74; Pulse Ox 100% ; Pain 2/10; db 11:40 BP 138 / 76; Pulse 62; Resp 18; Temp 98.8; Pulse Ox 99% ; Pain 1/10; db 09:20 Body Mass Index 32.62 (88.90 kg, 165.10 cm) db [place] Coma Score: 11:00 Eye Response: spontaneous(4). Verbal Response: oriented(5). Motor Response: obeys db commands(6). Total: 15. ED Course: 08:48 Patient arrived in ED. mr 08:49 Vy Akosua is Private Physician. mr 08:49 Rob Geronimo PA is PHCP. [facility] 08:49 Luke Bird MD is Attending Physician. [facility] 09:00 Iliana Bruce, RN is Primary Nurse. db 09:25 Inserted saline lock: 20 gauge in left antecubital area, using aseptic technique. Blood db collected. 09:57 Triage completed. db 09:57 Arm band placed on right wrist. db 10:00 Patient has correct armband on for positive identification. Fall risk band placed. Bed db in low position. Call light in reach. Side rails up X 1. Pulse ox on. NIBP on. Warm blanket given. 10:00 No provider procedures requiring assistance completed. db 10:39 CT Abd/Pelvis - IV Contrast Only In Process Unspecified. EDMS 11:40 IV discontinued, intact, bleeding controlled, No redness/swelling at site. db Administered Medications: 09:40 Drug: Zofran (Ondansetron) 4 mg Route: IVP; Site: left antecubital; db 10:40 Follow up: Response: No adverse reaction db 09:40 Drug: morphine 4 mg Route: IVP; Infused Over: 4 mins; Site: left antecubital; db 10:39 Follow up: Response: No adverse reaction db 09:40 Drug: Pyridium (phenazopyridine) 200 mg Route: PO; db 10:39 Follow up: Response: No adverse reaction db Medication: 09:20 VIS not applicable for this client. db Outcome: 11:19 Discharge ordered by . m 11:45 Discharged to home ambulatory. db 11:45 Condition: stable 11:45 Discharge instructions given to patient, Instructed on discharge instructions, follow up and referral plans. Prescriptions given X 3. 11:58 Patient left the ED. db Signatures: Dispatcher [employer] EDMS Rob Geronimo PA PA Malu Gutierres mr Iliana Bruce, RN RN db
--- NOTE | 2021-12-13 11:20 | EDPHYS ---
Physician Documentation [facility] Name: Pari Nicole Age: 71 yrs Sex: Female : 1950 Arrival Date: 12/13/2021 Time: 08:48 Bed 14 Private MD: Akosua Mcclellan ED Physician Luke Bird HPI: 12/13 09:00 This 71 yrs old Black Female presents to ER via Ambulatory with complaints of Abdominal jmm Pain, Back Pain. 09:00 This is a 71-year-old female with history of hyperlipidemia, hypertension the presents jm emerged part with complaints of right lower abdominal pain and dysuria. Patient initially had some back pain with radiation to right leg was seen in the ED yesterday. Patient prescribed medication without relief. States that the dysuria began earlier today.. 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 - Social history:: Smoking status: Patient denies any tobacco usage or history of. ROS: 09:00 Constitutional: Negative for fever, chills, and weight loss, Cardiovascular: Negative jmm for chest pain, palpitations, and edema, Respiratory: Negative for shortness of breath, cough, wheezing, and pleuritic chest pain. 09:00 Abdomen/GI: Positive for abdominal pain. 09:00 : Positive for urinary symptoms. 09:00 All other systems are negative. Exam: 09:00 Constitutional: This is a well developed, well nourished patient who is awake, alert, jmm and in no acute distress. Head/Face: atraumatic. Eyes: EOMI, no conjunctival erythema appreciated ENT: Moist Mucus Membranes Neck: Trachea midline, Supple Chest/axilla: Normal chest wall appearance and motion. Cardiovascular: Regular rate and rhythm. No edema appreciated Respiratory: Normal respirations, no respiratory distress appreciated 09:00 Back: Normal ROM Skin: General appearance color normal MS/ Extremity: Moves all extremities, no obvious deformities appreciated, no edema noted to the lower extremities Neuro: Awake and alert Psych: Behavior is normal, Mood is normal, Patient is cooperative and pleasant 09:00 Abdomen/GI: Inspection: abdomen appears normal, Bowel sounds: normal, Palpation: soft, mild abdominal tenderness, in the right lower quadrant. Vital Signs: 09:20 BP 133 / 85; Pulse 69; Resp 16; Temp 98.9; Pulse Ox 99% ; Weight 88.9 kg; Height 5 ft. db 5 in. (165.10 cm); Pain 8/10; 10:45 BP 144 / 72; Pulse 16; Resp 74; Pulse Ox 100% ; Pain 2/10; db 11:40 BP 138 / 76; Pulse 62; Resp 18; Temp 98.8; Pulse Ox 99% ; Pain 1/10; db 09:20 Body Mass Index 32.62 (88.90 kg, 165.10 cm) db [place] Coma Score: 11:00 Eye Response: spontaneous(4). Verbal Response: oriented(5). Motor Response: obeys db commands(6). Total: 15. MDM: 09:00 Patient medically screened. [facility] 11:19 Data reviewed: vital signs, nurses notes. Counseling: I had a detailed discussion with maria del carmen the patient and/or guardian regarding: the historical points, exam findings, and any diagnostic results supporting the discharge/admit diagnosis, the need for outpatient follow up, to return to the emergency department if symptoms worsen or persist or if there are any questions or concerns that arise at home. 12/13 09:01 Order name: CBC with Diff; Complete Time: 09:39 [facility] 12/13 09:01 Order name: CMP; Complete Time: 09:55 [facility] 12/13 09:01 Order name: Lipase; Complete Time: 09:55 [facility] 12/13 09:02 Order name: CT Abd/Pelvis - IV Contrast Only; Complete Time: 10:58 [facility] 12/13 10:51 Order name: Urine Dipstick-Ancillary; Complete Time: 10:51 [facility] 12/13 09:01 Order name: IV Saline Lock; Complete Time: 09:34 [facility] 12/13 09:01 Order name: Labs collected and sent; Complete Time: 09:34 [facility] 12/13 09:01 Order name: Urine Dipstick-Ancillary (obtain specimen); Complete Time: 10:50 [facility] Administered Medications: 09:40 Drug: Zofran (Ondansetron) 4 mg Route: IVP; Site: left antecubital; db 10:40 Follow up: Response: No adverse reaction db 09:40 Drug: morphine 4 mg Route: IVP; Infused Over: 4 mins; Site: left antecubital; db 10:39 Follow up: Response: No adverse reaction db 09:40 Drug: Pyridium (phenazopyridine) 200 mg Route: PO; db 10:39 Follow up: Response: No adverse reaction db Disposition Summary: 12/13/21 11:19 Discharge Ordered Location: Home jm Condition: Stable jmm Diagnosis - Dysuria jmm - Lower abdominal pain, unspecified jmm Followup: [facility] - With: Private Physician - When: 1 - 2 days - Reason: Recheck today's complaints, Continuance of care, Re-evaluation by your physician Discharge Instructions: - Discharge Summary Sheet [facility] - Abdominal Pain, Adult jmm - Dysuria [facility] Forms: - Medication Reconciliation Form [facility] - Thank You Letter [facility] - Antibiotic Education [facility] - Prescription Opioid Use [facility] Prescriptions: - Cephalexin 500 mg Oral Capsule - take 1 capsule by ORAL route every 8 hours for 10 days; 30 capsule; Refills: 0, [facility] Product Selection Permitted - Pyridium 200 mg Oral Tablet - take 1 tablet by ORAL route every 8 hours for 3 days; 6 tablet; Refills: 0, [facility] Product Selection Permitted - orphenadrine citrate 100 mg Oral Tablet Sustained Release - take 1 tablet by ORAL route 2 times per day As needed; 20 tablet; Refills: 0, [facility] Product Selection Permitted Addendum: 12/17/2021 04:05 Co-signature as Attending Physician, Luke Bird MD I agree with the assessment and c davis plan of care. Signatures: Dispatcher [employer] Luke Murphy MD MD cha Mickail, Joel, PA PA Iliana Coats, RN RN db
[2021-12-13 12:04] VITALS: BP 138/76; TEMP 98.8; O2SAT 99
== END 2021-12-13 11:58 | disposition home or self-care (01) ==
LOC: ER 08:45
DX: R30.0 Dysuria (principal); I10 Essential (primary) hypertension; E78.00 Pure hypercholesterolemia, unspecified
CPT/HCPCS: 85025; 36415; 81003; 83690; 80053; 74177; 96375; 96374; 99284; Q9967; J2405

== ENCOUNTER 2021-12-16 08:32 | Emergency (ER) | payer OTHER ==
--- OUTSIDE RECORDS SUMMARY | 2021-12-16 08:37 | XMS REPORT | Continuity of Care Document ---
:1950 Author Organization [facility] t Address [address] [place] [address] Care Team Providers Name Role Phone Mclaughlin, Popeye Dickens Primary Care Physician [phone] Akosua Marin Attending Clinician Unavailable Caro Shoemaker Attending Clinician Unavailable Nabil Noble MD Attending Clinician Anna Jackson MD Attending Clinician Catracho Ott Attending Clinician CATRACHO ANDERSON Attending Clinician Unavailable John Almodovar Attending Clinician THOMAS HAIDER Attending Clinician Unavailable Lab, Ang - Db Attending Clinician Unavailable JOHN BYRD Attending Clinician Unavailable Doctor Unassigned, [place] Attending Clinician Unavailable LING MA Attending Clinician [...] Expiration Date S mando [employer] MEDICARE PPO [id number] 2017 00:00:00 Problems Condition Condition Condition Status Onset Resolution Last Treating Co mments Source Name Details Category Date Date Treatment Clinician Date Left Left Disease Active Last [facility] Achilles Achilles 8-30 Assessmen [facility] tendinitis tendinitis 00:00: t & Plan: 00 [...] 4-22 it y of n n 00:00: [place] [facility] Puncture Puncture Disease Active Unive rs wound of wound of 4-22 ity of right right 00:00: [place] upper arm, upper arm, 00 Me dical initial initial Branch encounter encounter Encounter Encounter Disease Active Uni vers to to 4-22 [place] of establish establish 00:[place] Mixed Mixed Disease Active 2020-02 Univers hyperlipid hyperlipid 06 it y of emia emia 00:00: [place] [facility] Prediabete Prediabete Disease Active 2020-02 [...] , and once she obtains it from [place] we may administe r that for her. [...] Prinzmetal Disease Active [facility] Allergic Allergic Disease Active [facility] rs rhinitis [facility] Anxiety Anxiety Disease Active [facility] Hypertensi Hypertensi Disease Active U nivers on on [facility] Localized Localized Problem Active UT osteoarthr osteoarthr [...] Active Univers ALLERGIE Class ity of S [facility] Family History Family Member Diagnosis Comments Start Date Stop Date Source Father Family history of cardiac [facility] disorder Father Family history of [facility] hypertension Father Family history of [facility] myocardial infarction Social History Social Habit Start Date Stop Date Quantity Comments Source [facility] Alcohol Std Drinks History [facility] Health Alcohol Binge History [facility] Health Alcohol Comment Exposure to 2021-10-12 2021-10-22 Not sure [facility] SARS-CoV-2 (event) 00:00:00 13:27:00 Alcohol intake 2021-10-22 2021-10-22 Lifetime [facility] 00:00:00 00:00:00 non-drinker (finding) Tobacco use and 2020-09-18 2020-09-18 Smokeless tobacco [facility] exposure 00:00:00 00:00:00 non-user History SDOH 2020-09-18 2020-09-18 1 [facility] Alcohol Frequency 00:00:00 00:00:00 Sex Assigned At [birth year] [facility] 00:00:00 00:00:00 Smoking Status Start Date Stop Date Source Never smoker [facility] Medications Ordered Filled Start Stop Current Ordering Indication Dosage Frequency Signature Comments Components Source Medication Medication Date Date Medication? Clinician (SIG) Name Name ketorolac 2021- No [id number] 30mg Un breonna (TORADOL) 5-23 05-23 ity of injection 22:45: 21:37 [place] 30 mg 00 :00 Medical Branch ketorolac 2021- No [id number] 30mg 30 mg, Univers (TORADOL) 07-15 Intramuscu ity of injection 22:45: 21:37 [place], ONCE, [place] 30 mg 00 :00 1 dose, On Medical Mon Branch 07/15/21 at 1745, Routine
cleaning crew member approving Restricted medication : ANNA JACKSON cyclobenzap Yes [id number] 5mg Take 1 Univers rine 5 mg 07-15 tablet by ity o f tablet 00:00: mouth at [place] 00 bedtime. Medical Branch mupirocin 2 2021- No [id number] Apply to Univers % ointment 06-14 [id number] area(s) 3 i ty of 00:00: 04:59 (three) [place] 00 :00 times Medical daily for Branch 14 days. mupirocin 2 2021- No [id number] Apply to Univers % ointment 06-14 [id number] area(s) 3 i ty of 00:00: 04:59 (three) [place] 00 :00 times Medical daily for Branch 14 days. mupirocin 2 2021- No [id number] Apply to Univers % ointment 06-14 [id number] area(s) 3 i ty of 00:00: 04:59 (three) [place] 00 :00 times Medical daily for Branch 14 days. mupirocin 2 2021- No [id number] Apply to Univers % ointment 06-14 [id number] area(s) 3 i ty of 00:00: 04:59 (three) [place] 00 :00 times Medical daily for Branch 14 days. mupirocin 2 2021- No [id number] Apply to Univers % ointment 06-14 [id number] area(s) 3 i ty of 00:00: 04:59 (three) [place] 00 :00 times Medical daily for Branch 14 days. mupirocin 2 2021- No [id number] Apply to Univers % ointment 06-14 [id number] area(s) 3 i ty of 00:00: 04:59 (three) [place] 00 :00 times Medical daily for Branch 14 days. amLODIPine Yes 5mg Take 5 mg Un breonna 5 mg tablet 4-04 by mouth ity of 00:00: daily. [place] [facility] amLODIPine 2022-0 Yes 5mg Take 5 mg Un breonna 5 mg tablet 4-04 by mouth ity of 00:00: daily. [place] [facility] amLODIPine 2022-0 Yes 5mg Take 5 mg Un breonna 5 mg tablet 4-04 by mouth ity of 00:00: daily. [place] [facility] amLODIPine 2022-0 Yes 5mg Take 5 mg Un breonna 5 mg tablet 4-04 by mouth ity of 00:00: daily. [place] [facility] amLODIPine 2022-0 Yes 5mg Take 5 mg Un breonna 5 mg tablet 4-04 by mouth ity of 00:00: daily. [place] [facility] amLODIPine 2022-0 Yes 5mg Take 5 mg Un breonna 5 mg tablet 4-04 by mouth ity of 00:00: daily. [place] [facility] amLODIPine 2022-0 Yes 5mg Take 5 mg Un breonna 5 mg tablet 4-04 by mouth ity of 00:00: daily. [address] Branch nitroglycer 2020-[address] [...] s mg tablet 0-19 ity of 00:00: [place] [facility] losartan 50 2020-1 Yes Univer s mg tablet 0-19 ity of 00:00: [place] [facility] losartan 50 1 Yes Univer s mg tablet 0-19 ity of 00:00: [place] [facility] losartan 50 2020-1 Yes Univer s mg tablet 0-19 ity of 00:00: [place] [facility] losartan 50 2020-1 Yes Univer s mg tablet 0-19 ity of 00:00: [place] [facility] losartan 50 2020-1 Yes Univer s mg tablet 0-19 ity of 00:00: [place] [facility] losartan 50 2020-1 Yes Univer s mg tablet 0-19 ity of 00:00: [place] [facility] metoprolol 1-0 Yes 1{tbl} Take [...] by mouth ity of tablet 00:00: daily. [place] [facility] olmesartan 2020-0 Yes 20mg Take 20 mg U nivers 20 mg 6-28 by mouth ity of tablet 00:00: daily. [place] [id number] [facility] Branch olmesartan 2021-0 Yes 20mg Take 20 mg U nivers 20 mg 6-28 by mouth ity of tablet 00:00: daily. [facility] Branch olmesartan 2021-0 Yes 20mg Take 20 mg U nivers 20 mg 6-28 by mouth ity of tablet 00:00: daily. [facility] Branch olmesartan 2021-0 Yes 20mg Take 20 mg U nivers 20 mg 6-28 by mouth ity of tablet 00:00: daily. [facility] Branch olmesartan 2021-0 Yes 20mg Take 20 mg U nivers 20 mg 6-28 by mouth ity of tablet 00:00: daily. [place] [facility] olmesartan 2021-0 Yes 20mg Take 20 mg U nivers 20 mg 6-28 by mouth ity of tablet 00:00: daily. [facility] olmesartan 2021-0 Yes 20mg QD Take 20 [...] tablet 00 each day. triamcinolo 2020- Yes [id number] Apply to Univers ne 0.025 % 3-11 area(s) 2 ity of cream 00:00: (two) [place] 00 times Medical daily. Branch fluticasone 2020-0 Yes [id number] 2{spray Use 2 Univers propionate 3-11 } Sprays in ity of 50 00:00: each [place] mcg/actuati 00 nostril Medic al on nasal daily. Branch spray loratadine 0 Yes [id number] 10mg Take 1 U nivers 10 mg 3-11 tablet by ity of tablet 00:00: mouth [place] 00 daily. Medical Branch triamcinolo Yes [id number] Apply to Univers ne 0.025 % 3-11 area(s) 2 ity of cream 00:00: (two) times Medical daily. Branch fluticasone 0 Yes [id number] 2{spray Use 2 Univers propionate 3-11 } Sprays in ity of 50 00:00: each [place] mcg/actuati 00 nostril Medic al on nasal daily. Branch spray loratadine 0 Yes [id number] 10mg Take 1 U nivers 10 mg 3-11 tablet by ity of tablet 00:00: mouth [place] 00 daily. Medical Branch triamcinolo 0 Yes [id number] Apply to Univers ne 0.025 % 3-11 area(s) 2 ity of cream 00:00: (two) [place] 00 times Medical daily. Branch fluticasone Yes [id number] 2{spray Use 2 Univers propionate 3-11 } Sprays in ity of 50 00:00: each [place] mcg/actuati 00 nostril Medic al on nasal daily. Branch spray loratadine Yes [id number] 10mg Take 1 U nivers 10 mg 3-11 tablet by ity of tablet 00:00: mouth [place] 00 daily. Medical Branch triamcinolo Yes [id number] Apply to Univers ne 0.025 % 3-11 area(s) 2 ity of cream 00:00: (two) [place] 00 times Medical daily. Branch fluticasone Yes [id number] 2{spray Use 2 Univers propionate 3-11 } Sprays in ity of 50 00:00: each [place] mcg/actuati 00 nostril Medic al on nasal daily. Branch spray loratadine 0 Yes [id number] 10mg Take 1 U nivers 10 mg 3-11 tablet by ity of tablet 00:00: mouth [place] 00 daily. Medical Branch triamcinolo Yes [id number] Apply to Univers ne 0.025 % 3-11 area(s) 2 ity of cream 00:00: (two) [place] 00 times Medical daily. Branch fluticasone 0 Yes [id number] 2{spray Use 2 Univers propionate 3-11 } Sprays in ity of 50 00:00: each [place] mcg/actuati 00 nostril Medic al on nasal daily. Branch spray loratadine 0 Yes [id number] 10mg Take 1 U nivers 10 mg 3-11 tablet by ity of tablet 00:00: mouth [place] 00 daily. Medical Branch triamcinolo Yes [id number] Apply to Univers ne 0.025 % 3-11 area(s) 2 ity of cream 00:00: (two) [place] 00 times Medical daily. Branch fluticasone Yes [id number] 2{spray Use 2 Univers propionate 3-11 } Sprays in ity of 50 00:00: each [place] mcg/actuati 00 nostril Medic al on nasal daily. Branch spray loratadine Yes [id number] 10mg Take 1 U nivers 10 mg 3-11 tablet by ity of tablet 00:00: mouth 00 daily. Medical Branch triamcinolo Yes [id number] Apply to Univers ne 0.025 % 3-11 area(s) 2 ity of cream 00:00: (two) [place] 00 times Medical daily. Branch fluticasone Yes [id number] 2{spray Use 2 Univers propionate 3-11 } Sprays in ity of 50 00:00: each [place] mcg/actuati 00 nostril Medic al on nasal daily. Branch spray loratadine Yes [id number] 10mg Take 1 U nivers 10 mg 3-11 tablet by ity of tablet 00:00: mouth 00 daily. Medical Branch metoprolol Yes TK 1 T PO Un breonna succinate 9-04 D. ity of XL 100 mg 00:00: [place] 24 hr 00 Medical tablet Branch metoprolol Yes TK 1 T PO Un breonna succinate 9-04 D. ity of XL 100 mg 00:00: [place] 24 hr 00 Medical tablet Branch metoprolol Yes TK 1 T PO Un breonna succinate 9-04 D. ity of XL 100 mg 00:00: [place] 24 hr Medical tablet Branch metoprolol Yes TK 1 T PO Un breonna succinate 9-04 D. ity of XL 100 mg 00:00: [place] 24 hr Medical tablet Branch metoprolol Yes TK 1 T PO Un breonna succinate 9-04 D. ity of XL 100 mg 00:00: [place] 24 hr 00 Medical tablet Branch metoprolol Yes TK 1 T PO Un breonna succinate 9-04 D. ity of XL 100 mg 00:00: [place] 24 hr 00 Medical tablet Branch metoprolol Yes TK 1 T PO Un breonna succinate -04 D. ity of XL 100 mg 00:00: [place] 24 hr 00 Medical tablet Branch Metoprolol [...] Name TDAP 2021-06-14 Completed University of 00:00:00 [facility] TDAP 2021-06-14 Completed University of 00:00:00 [facility] TDAP 2021-06-14 Completed University of 00:00:00 [facility] TDAP 2021-06-14 Completed University of 00:00:00 [facility] TDAP 2021-06-14 Completed University of 00:00:00 [facility] TDAP 2021-06-14 Completed University of 00:00:00 [facility] TDAP 2021-06-14 Completed University of 00:00:00 [facility] SARS-COV-2 COVID-19 2020-12-25 Completed Unive rsity of MODERNA BOOSTER 00:00:00 [facility] VACCINE [place] SARS-COV-2 COVID-2020-12-25 Completed Unive rsity of MODERNA BOOSTER 00:00:00 [facility] VACCINE [place] SARS-COV-2 COVID-19 2020-12-25 Completed Unive rsity of MODERNA BOOSTER 00:00:00 [facility] VACCINE [place] SARS-COV-2 COVID-19 2020-12-25 Completed Unive rsity of [...] Dose 2020-10-24 Completed Unive rsity of 00:00:00 [facility] Branch Influenza High Dose 2020-10-24 Completed Unive rsity of 00:00:00 [facility] Branch Influenza High Dose 2020-10-24 Completed Unive rsity of 00:00:00 [facility] Branch Influenza High Dose 2020-10-24 Completed Unive rsity of 00:00:00 [facility] Branch Influenza High Dose 2020-10-24 Completed Unive rsity of 00:00:00 [facility] Branch Influenza High Dose 2020-10-24 Completed Unive rsity of 00:00:00 [facility] Branch Influenza High Dose 2020-10-24 Completed Unive rsity of 00:00:00 [facility] SARS-COV-2 COVID-19 2020-04-28 Completed Unive rsity of MODERNA VACCINE 00:00:00 [facility] ical Branch SARS-COV-2 COVID-19 2020-04-28 Completed Unive rsity of MODERNA VACCINE 00:00:00 [place] [facility] ical Branch SARS-COV-2 COVID-19 2020-04-28 Completed Unive rsity of MODERNA VACCINE 00:00:00 [place] [facility] ical Branch SARS-COV-2 COVID-19 2020-04-28 Completed Unive rsity of MODERNA VACCINE 00:00:00 [place] [facility] ical Branch SARS-COV-2 COVID-19 2020-04-28 Completed Unive rsity of MODERNA VACCINE 00:00:00 [facility] ical Branch SARS-COV-2 COVID-19 2020-04-28 Completed Unive rsity of MODERNA VACCINE 00:00:00 [facility] SARS-COV-2 COVID-19 2020-04-28 Completed Unive rsity of MODERNA VACCINE 00:00:00 [facility] SARS-COV-2 COVID-19 2020-03-31 Completed Unive rsity of MODERNA VACCINE 00:00:00 [facility] SARS-COV-2 COVID-19 2020-03-31 Completed Unive rsity of MODERNA VACCINE 00:00:00 [facility] SARS-COV-2 COVID-19 2020-03-31 Completed Unive rsity of MODERNA VACCINE 00:00:00 [facility] SARS-COV-2 COVID-19 2020-03-31 Completed Unive rsity of MODERNA VACCINE 00:00:00 [facility] SARS-COV-2 COVID-19 2020-03-31 Completed Unive rsity of MODERNA VACCINE 00:00:00 [facility] SARS-COV-2 COVID-19 2020-03-31 Completed Unive rsity of MODERNA VACCINE 00:00:00 [facility] SARS-COV-2 COVID-19 2020-03-31 Completed Unive rsity of MODERNA VACCINE 00:00:00 [facility] Pneumococcal 13 2018-11-09 Completed Universit y of Conjugate, PCV13 00:00:00 [facility] dical (Prevnar 13) Branch Zoster Vaccine 2018-11-09 Completed University of Recombinant 00:00:00 [facility] Pneumococcal 13 2018-11-09 Completed Universit y of Conjugate, PCV13 00:00:00 [facility] dical (Prevnar 13) Branch Zoster Vaccine 2018-11-09 Completed University of Recombinant 00:00:00 [facility] Pneumococcal 13 2018-11-09 Completed Universit y of Conjugate, PCV13 00:00:00 [facility] dical (Prevnar 13) Branch Zoster Vaccine 2018-11-09 Completed University of Recombinant 00:00:00 [facility] Pneumococcal 13 2018-11-09 Completed Universit y of Conjugate, PCV13 00:00:00 [facility] dical (Prevnar 13) Branch Zoster Vaccine 2018-11-09 Completed University of Recombinant 00:00:00 [facility] Pneumococcal 13 2018-11-09 Completed Universit y of Conjugate, PCV13 00:00:00 [facility] dical (Prevnar 13) Branch Zoster Vaccine 2018-11-09 Completed University of Recombinant 00:00:00 [facility] Pneumococcal 13 2018-11-09 Completed Universit y of Conjugate, PCV13 00:00:00 [facility] dical (Prevnar 13) Branch Zoster Vaccine 2018-11-09 Completed University of Recombinant 00:00:00 [facility] Pneumococcal 13 2018-11-09 Completed Universit y of Conjugate, PCV13 00:00:00 [facility] dical (Prevnar 13) Branch Zoster Vaccine 2018-11-09 Completed University of Recombinant 00:00:00 [facility] Vital Signs Vital Name Observation Time Observation Value Comments Source Systolic blood 2021-07-15 21:24:00 140 mm[Hg] Univer sity of pressure [facility] Diastolic blood 2021-07-15 21:24:00 79 mm[Hg] Unive rsity of [facility] Heart rate 2021-07-15 21:24:00 63 /min Universi ty [facility] Body temperature 2021-07-15 21:24:00 36.67 Sridevi [facility] Respiratory rate 2021-07-15 21:24:00 18 /min [facility] Body height 2021-07-15 21:24:00 165.1 cm Universi ty [facility] Body weight 2021-07-15 21:24:00 89.359 kg Universi ty [facility] BMI 2021-07-15 21:24:00 32.78 kg/m2 [facility] Oxygen saturation in 2021-07-15 21:24:00 98 /min [facility] Arterial blood by [facility] Pulse oximetry Branch Systolic blood 2021-06-14 14:06:00 116 mm[Hg] Univer sity of [facility] Diastolic blood 2021-06-14 14:06:00 72 mm[Hg] Unive rsity of pressure [facility] Heart rate 2021-06-14 14:06:00 72 /min Universi ty of [facility] Body height 2021-06-14 14:06:00 166.4 cm Universi ty [facility] Body weight 2021-06-14 14:06:00 89.676 kg Universi ty [facility] BMI 2021-06-14 14:06:00 32.40 kg/m2 [facility] Oxygen saturation in 2021-06-14 14:06:00 97 /min University Arterial blood by [facility] Pulse oximetry Branch Procedures Procedure Date / Time Performing Clinician Source Performed TSH, 3RD GENERATION-Q 2021-06-14 15:16:00 Doctor Unassigned, [facility] Name Medical [place] VITAMIN B12-Q 2021-06-14 15:16:00 Doctor Unassigned, [facility] [place] Medical [place] TDAP VACCINE, >11 YRS, IM 2021-06-14 14:35:52 John Byrd [facility] ARTHROCENTESIS 2020-09-18 20:10:23 Nabil Noble [place] He alth ASPIR&/INJ MAJOR JT/BURSA W/O US US Extremity lower venous 2018-12-13 00:00:00 [facility] doppler bilat [id number] [U] XRAY KNEE 3 VWS LEFT 2018-12-10 00:00:00 [facility] [id number] [facility] Lumpectomy History of Bunion [facility] Correction With Metatarsal Osteotomy Encounters Start End Encounter Admission Attending Care Care Encounter Source Date/Time Date/Time Type Type Clinicians Facility Department ID 2021-09-16 Outpatient KATYA Marin [facility] [id number] Common 09:11:01 Akosua [address] [facility] 2020-11-13 Inpatient ERNA BRADLEY ShoemakerBEV ADMI [id number] [facility] 09:00:00 [facility] Webber [facility] 2020-10-16 Outpatient [facility] [id number] [place] 11:32:42 Health 2020-09-17 Outpatient [facility] [id number] UT 16:44:43 Health 2021-10-22 2021-10-22 Outpatient [facility] [id number] UT 13:50:00 14:58:30 Health 2021-10-22 2021-10-22 Outpatient [facility] [id number] [place] 13:45:00 14:56:04 Health 2021-10-22 2021-10-22 Office Fara AL[facility]ES [facility] [id number] [place] 13:45:00 14:55:31 Visit ABILIO Perdomo [id number] [facility] [id number] PLA[address] 1 [id number] 2021-09-16 2021-09-16 ambulatory STLMLC STLMLC [id number] Common 00:00:00 00:00:00 [facility] 2021-09-16 2021-09-16 ambulatory STLMLC STLMLC [id number] Common 00:00:00 00:00:00 [facility] 2021-07-15 2021-07-15 Urgent Anna Jackson [facility] [id number] Univers 16:20:00 16:40:00 Catracho Nguyen [facility] [id number] ity of [place] [id number] Salbador as SAI?BLEA [id number] [address] MEDICAL OFFICE [facility] 2021-07-15 2021-07-15 [facility] [id number] Univers 16:20:00 16:20:00 CATRACHO chen [facility] 2021-06-26 2021-06-26 Telephone [facility] [id number] Univers 00:00:00 00:00:00 [facility] [id number] it y of [place] [id number] Salbador as SAI?BLEA [id number] [address] OFFICE [facility] 2021-06-25 2021-06-25 Telephone [facility] [id number] Univers 00:00:00 00:00:00 John HEALTH [id number] it y of [place] [id number] Salbador as SAI?BLEA [id number] [address] OFFICE [facility] 2021-06-17 2021-06-17 Out[facility] [id number] Univers 08:30:00 08:30:00 THOMAS napoles [facility] 2021-06-14 2021-06-14 Bait Man Lab, Ang - Db [facility] [id number] Univers 10:00:00 10:15:00 Visit John Byrd [id number] [facility] [id number] [place] as SAI?BLEA [id number] Dc dicnancy VILLA [address] [place] MEDICAL OFFICE BUILDING 2021-06-14 2021-06-14 Outpatient R CARSON [facility] [id number] Univers 10:00:00 10:00:00 JOHN napoles [facility] 2021-06-14 2021-06-14 Outpatient R CARSON [facility] [id number] Univers 09:00:00 09:53:00 JOHN napoles [facility] 2021-06-14 2021-06-14 Office Carson [facility] [id number] Univers 09:00:00 09:53:00 Visit John [facility] [id number] it y of [place] [id number] Salbador as SAI?BLEA [id number] Dc armand [facility] [address] [facility] OFFICE [facility] 2021-06-14 2021-06-14 Orders Doctor WINSTON [id number] Univers 00:00:00 00:00:00 Only Unassigned, JAE [id number] ity of [place] [facility] [id number] Salbador as [phone] [facility] 00[address] [place] 2021-01-21 2021-01-21 Outpatient R JYOTI [facility] [id number] Univers 09:53:40 23:59:00 WONDIFUL ity o f [facility] 2021-01-21 2021-01-21 [facility] [id number] Univers 09:40:00 23:59:00 Encounter Wondiful [facility] [id number] [facility] of [facility] [id number] [id number] [facility] [address] [place] 2021-01-21 2021-01-21 Orders Doctor WINSTON [id number] Univers 00:00:00 00:00:00 Only Unassigned, JAE [id number] ity of [place] [facility] [id number] [place] as [id number] [address] 2020-12-28 2020-12-28 Telephone Jyoti [facility] [id number] Univers 00:00:00 00:00:00 Wondiful A HEALTH [id number] [facility] [id number] [place] as SAI?BLEA [id number] Dc armand VILLA [address] [place] MEDICAL OFFICE [facility] 2020-12-25 2020-12-25 Outpatient R AKILAH [facility] [id number] Univers 09:30:00 09:30:00 BUTCH napoles [facility] 2020-12-25 2020-12-25 Imm/Inj Nurse, Adc Pob Immunization [facility] [id number] Univers 09:09:07 09:11:08 Visit Butch Isbell [id number] .10 [place] of [place] [id number] [place] PROF[place] [id number] Dc armand LEMUS [address] [facility] 2020-12-24 2020-12-24 Bait Man Lab, Ang - [facility] [id number] Univers 07:44:02 07:59:02 Visit Ling Ma HEALTH 350.1.13.1 0 ity of [place] 4.2.7.2.686 [place]ador as SAI?BLEA [id number] Dc chungnancy ALLENMAGALY [address] MEDICAL OFFICE [facility] 2020-12-24 2020-12-24 Outpatient R JYOTI [facility] [id number] Univers 07:45:00 07:45:00 WONDIFUL ity o f [facility] 2020-12-24 2020-12-24 Outpatient R [facility] [id number] Univers 07:45:00 07:45:00 ity of [facility] 2020-12-24 2020-12-24 Orders WINSTON Ma 1.2.840.114 [id number] Univers 00:00:00 00:00:00 Only Wondiful A JAE 350.1.13.10 ity of [facility] 4.2.7.2.686 [place] as [phone] [address] 2020-12-21 2020-12-21 [facility] [id number] Univers 08:15:00 08:15:00 WONDIFUL ity o f [facility] 2020-12-17 2020-12-17 Outpatient [facility] [id number] Univers 15:00:00 16:10:37 WONDIFUL ity o f [facility] 2020-12-17 2020-12-17 [facility] 1.2.840.114 [id number] Univers 14:58:31 16:10:37 [facility] 350.1.13.10 [place]y of [place] 4.2.7.2.686 [place] SAI?BLEA [phone] [address] MEDICAL OFFICE BUILDING 2020-12-17 2020-12-17 [facility]patient [facility] [id number] [facility] 15:00:00 15:00:00 WONDIFUL ity o [facility] 2020-10-16 2020-10-16 Office [facility]Warren [facility] 1.2.840.114 [id number] [place] 11:14:40 11:29:40 Visit ABILIO Perdomo 350.1.13.[address] [facility] 9.2.7.2.686 PLAZA 0 [id number] [id number] 2020-09-18 2020-09-18 Office [facility]Warren [facility] 1.2.840.114 [id number] [place] 14:49:19 15:15:28 Visit NolaABILIO jackson 350.1.13.[address] [facility] 9.2.7.2.686 PLAZA 2 [phone] [id number] 2020-06-29 2020-06-29 Orders Doctor MONTERO 1.2.840.114 [id number] Univers 00:00:00 00:00:00 Only Unassigned, JAE 350.1.13.10 ity of [facility] 4.2.7.2.686 Salbador as [phone] [facility] [address] 2020-06-29 2020-06-29 Orders Doctor WINSTON 1.2.840.114 [id number] 00:00:00 00:00:00 Only Unassigned, JAE 350.1.13.10 [facility] 4.2.7.2.686 [id number] 2020-05-03 2020-05-03 [facility] 1.2.840.114 [id number] Univers 08:45:59 10:06:08 Visit Wondiful A Health 350.1.13.10 ity of [place] 4.2.7.2.686 Salbador as Professio [phone] Dc dical [address] One 2020-05-03 2020-05-03 Office [facility] 1.2.840.114 [id number] 08:45:59 10:06:08 Visit Wondiful A Health 350.1.13.10 [place] 4.2.7.2.686 Professio [phone] nal [facility] Office [facility] 2020-05-03 2020-05-03 Outpatient [facility] [id number] Univers 09:00:00 09:00:00 WONDIFUL ity o f [facility] 2020-04-28 2020-04-28 Outpatient [facility] [id number] Univers 14:30:00 14:30:00 ity [facility] 2020-03-31 2020-03-31 Outpatient [facility] [id number] Univers 14:40:00 14:40:00 ity [facility] 2019-10-11 2019-10-11 Outpatient ASKENASY, MHSE MHSE [id number] MH 09:30:00 16:44:[address] [facility] 2019-05-25 2019-05-25 Outpatient Raju_P [facility] [id number] [place] 02:40:00 02:40:00 [facility] 2018-12-20 2018-12-[facility] Orth[facility]ics [id number] [place] 13:30:00 13:30:00 t; FARA PERDOMO, - [place] NABIL Shaver ans ANDREW, M.D. M.D. 2018-12-13 2018-12-13 [facility] Orth[facility]ics [id number] [place] 13:15:00 13:15:00 t; FARA PERDOMO, - [place] NABIL Shaver ans ANDREW, M.D. M.D. Results [...] ALEXSANDRA (test code = ALEXSANDRA) PERFORMED BY [facility]; [address] [place] [phone]; CARO LEDESMA MD [facility] [id number] 08:00:00 Test Item Value Reference Range Interpretation Comments VITAMIN B12-Q (test 726 pg/mL 200-1100 code = 2132-9) ALEXSANDRA (test code = ALEXSANDRA) PERFORMED BY [facility]; [address] [place] [phone]; CARO LEDESMA MD [facility] Inj/Asp: L [id number] 20:10:23Andaguila Perdomo MD ? ? 09/18/2020 ?3:17 PML Inj/Asp: L knee on 09/18/2020 3:10 PMIndications: painDetails: 22 G needle, anterolateral approachMedications: (Bupivacaine [facility] number [id number] 3 mL 0.5% bupivacaine patient is applied today. Plus methylprednisolone 80 mg/mL 1 mL [facility] number [id number] patient supplied)Outcome: tolerated well, no immediate complications [...] to verify the correct patient, procedure, equipment, product support sales representative and site/side marked as required. Patient was prepped and draped in the usual sterile fashion (ChloraPrep was used to prep the area. ?Ethyl Chloride used for topical anesthesia. ).[facility][U] XRAY KNEE 3 VWS LEFT [id number] 13:40:00Images acquired, not reported on this accession number.[facility]
[2021-12-16] MEDS ORDERED: MORPHINE 2 MG/ML SYR ONE (09:07)
[2021-12-16 09:38] LABS: Absolute Lymphocytes (CBC) 2.1 K/uL (0.7-4.9); Hematocrit 40.5 % (36.0-45.0); Lymphocytes % 37.6 % (15.3-44.8); MPV 8.5 fL (7.6-11.3); RBC Red Blood Cell Count 4.36 M/uL (3.86-4.86)
[2021-12-16 09:51] LABS: Albumin 3.7 g/dL (3.4-5.0); Bilirubin Total 0.9 mg/dL (0.2-1.0); Protein, Total 7.8 g/dL (6.4-8.2)
[2021-12-16] MEDS ORDERED: ONDANSETRON 4 MG/2 ML VIAL ONE (09:59)
--- NOTE | 2021-12-16 10:34 | RAD REPORT ---
EXAM DESCRIPTION: CTAbdomen Pelvis W Contrast - 12/16/2021 10:12 am CLINICAL HISTORY: Abdominal pain. worsening RLQ abd pain COMPARISON: Abdomen Pelvis W Contrast dated 12/13/2021 TECHNIQUE: Biphasic CT imaging of the abdomen and pelvis was performed with 100 ml non-ionic IV cont rast. All CT scans are performed using dose optimization technique as appropriate and may include automated exposure control or mA/KV adjustment according to patient size. FINDINGS: The lung bases are clear.Cholecystectomy clips. The liver, spleen, pancreas, adrenal glands and kidneys are within normal limits. No bowel obstruction, free air, free fluid or abscess. Prominent fecal retention throughout the colon is seen. The cecum and ascending colon wall appears mildly thickened. Appendectomy. Small fat contai serafin umbilical hernia. No evidence of significant lymphadenopathy. Moderate lumbar degenerative changes. IMPRESSION: Cecal and ascending colon wall thickening could be related to colitis. There is prominen t fecal retention as well throughout the colon. Appendectomy and cholecystectomy.
[2021-12-16] MEDS ORDERED: METRONIDAZOLE 500mg IVPB 500 MG/100 ML BAG IV ONE (11:45)
[2021-12-16] MEDS ORDERED: CIPROFLOXACIN 400mg IV 400 MG/200 ML BAG IV ONE (11:45)
--- NOTE | 2021-12-16 11:54 | EDPHYS ---
Physician Documentation [facility] Name: Pari Nicole Age: 71 yrs Sex: Female : 1950 Arrival Date: 12/16/2021 Time: 08:36 Bed 18 Private MD: ED Physician Kevin Fountain HPI: 12/16 08:53 This 71 yrs old Black Female presents to ER via Ambulatory with complaints of Abdominal rn Pain. 08:53 The patient presents with abdominal pain right lower quadrant. Onset: The rn symptoms/episode began/occurred 2 week(s) ago. The symptoms do not radiate. Associated signs and symptoms: Pertinent negatives: blood in stools, chest pain, constipation, diarrhea, fever, hematuria. The symptoms are described as intermittent, sharp. Modifying factors: The symptoms are alleviated by nothing, the symptoms are aggravated by touching the area, bowel movement. Severity of pain: At its worst the pain was moderate in the emergency department the pain has improved. The patient has experienced similar episodes in the past. The patient has been recently seen at the [facility] Emergency Department. Pt reports worsening RLQ abd pain, present for 2 weeks, seen here twice already, no meds helping. . 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 - Social history:: Smoking status: Patient denies any tobacco usage or history of. - Family history:: not pertinent. - Hospitalizations: : No recent hospitalization is reported. ROS: 08:53 Constitutional: Negative for fever, chills, and weight loss, Eyes: Negative for injury, rn pain, redness, and discharge, Neck: Negative for injury, pain, and swelling, Cardiovascular: Negative for chest pain, palpitations, and edema, Respiratory: Negative for shortness of breath, cough, wheezing, and pleuritic chest pain, Abdomen/GI: Negative for nausea, vomiting, diarrhea, and constipation, Back: Negative for injury and pain, MS/Extremity: Negative for injury and deformity, Skin: Negative for injury, rash, and discoloration, Neuro: Negative for headache, weakness, numbness, tingling, and seizure. Exam: 08:53 Constitutional: This is a well developed, well nourished patient who is awake, alert, rn and in no acute distress. Ambulatory to room without difficulty Head/Face: Normocephalic, atraumatic. Cardiovascular: Regular rate and rhythm. No pulse deficits. Respiratory: No increased work of breathing, no retractions or nasal flaring. Abdomen/GI: soft, mild tenderness RLQ, no masses Skin: Warm, dry MS/ Extremity: Pulses equal, no cyanosis. Neuro: Awake and alert, GCS 15 Vital Signs: 08:50 BP 147 / 79; Pulse 77; Resp 18; Temp 98.4; Pulse Ox 96% on R/A; Weight 88.9 kg; Height vg1 5 ft. 5 in. (165.10 cm); Pain 6/10; 10:10 BP 125 / 81; Pulse 58; Pulse Ox 96% on R/A; ll1 12:28 BP 144 / 71; Pulse 65; Resp 17; Pulse Ox 97% on R/A; ll1 13:15 BP 143 / 63; Pulse 62; Pulse Ox 98% ; ll1 14:33 BP 143 / 81; Pulse 57; Resp 16; Pulse Ox 99% ; ll1 08:50 Body Mass Index 32.62 (88.90 kg, 165.10 cm) vg1 MDM: 08:39 Patient medically screened. rn 11:53 Differential diagnosis: diverticulitis, gastritis, non-specific abd pain, pancreatitis, rn Peptic Ulcer Disease, Pyelonephritis, Ureterolithiasis, colitis, hernia. Data reviewed: vital signs, nurses notes, lab test result(s), radiologic studies, CT scan, and as a result, I will discharge patient. Counseling: I had a detailed discussion with the patient and/or guardian regarding: the historical points, exam findings, and any diagnostic results supporting the discharge/admit diagnosis, lab results, radiology results, the need for outpatient follow up, to return to the emergency department if symptoms worsen or persist or if there are any questions or concerns that arise at home. Response to treatment: the patient's symptoms have mildly improved after treatment, and as a result, I will discharge patient. 12/16 08:50 Order name: CBC with Diff; Complete Time: 09:54 rn 12/16 08:50 Order name: CMP; Complete Time: 09:54 rn 12/16 08:50 Order name: Lipase; Complete Time: 09:54 rn 12/16 08:52 Order name: CT Abd/Pelvis - IV Contrast Only rn 12/16 08:56 Order name: Abdomen ; Complete Time: 11:41 EDMS 12/16 08:50 Order name: IV Saline Lock; Complete Time: 08:54 rn 12/16 08:50 Order name: Labs collected and sent; Complete Time: 08:54 rn Administered Medications: 09:12 Drug: morphine 2 mg {Note: rass 0, pain 6/10 R pelvic area.} Route: IVP; Infused Over: ll1 4 mins; Site: left antecubital; 12:28 Follow up: Response: No adverse reaction; RASS: Alert and Calm (0) ll1 11:57 Drug: Flagyl (metroNIDAZOLE) 500 mg Volume: 100 ml; Route: IVPB; Rate: 200 ml/hr; ll1 Infused Over: 30 mins; Site: left antecubital; 13:15 Follow up: Response: No adverse reaction; IV Status: Completed infusion; IV Intake: ll1 100ml 13:15 Drug: Cipro (ciprofloxacin) 400 mg Volume: 200 ml; Route: IVPB; Infused Over: 60 mins; ll1 Site: left antecubital; 14:47 Follow up: Response: No adverse reaction; IV Status: Completed infusion; IV Intake: ll1 200ml 13:16 Not Given (not neededd): Zofran (Ondansetron) 4 mg IVP once; over 2 minutes ll1 Disposition Summary: 12/16/21 11:54 Discharge Ordered Location: Home rn Problem: new rn Symptoms: have improved rn Condition: Stable rn Diagnosis - Infectious gastroenteritis and colitis, unspecified rn - Abdominal pain, unspecified rn Followup: rn - With: Private Physician - When: As needed - Reason: Recheck today's complaints, Re-evaluation by your physician Discharge Instructions: - Discharge Summary Sheet rn - Abdominal Pain, Adult rn - Colitis rn Forms: - Medication Reconciliation Form rn - Thank You Letter rn - Antibiotic architectural intern - Prescription Opioid Use rn Prescriptions: - Flagyl 500 mg Oral Tablet - take 1 tablet by ORAL route every 8 hours for 10 days; 30 tablet; Refills: 0, rn Product Selection Permitted - Cipro 500 mg Oral Tablet - take 1 tablet by ORAL route every 12 hours for 10 days; 20 tablet; Refills: 0, rn Product Selection Permitted Signatures: Dispatcher [employer] Kevin Rose MD MD rn Smirch, Shelby, RN RN Alvina Spain RN RN vg1 James Basurto RN RN ll1 Corrections: (The following items were deleted from the chart) 08:53 08:53 Home Meds: None; vg1 vg1
--- NOTE | 2021-12-16 11:54 | ER ---
Nurse's Notes [facility] Name: Pari Nicole Age: 71 yrs Sex: Female : 1950 Arrival Date: 12/16/2021 Time: 08:36 Bed 18 Private MD: Diagnosis: Infectious gastroenteritis and colitis, unspecified;Abdominal pain, unspecified Presentation: 12/16 08:50 Chief complaint: Patient states: RLQ ABD pain for about two weeks, stated was seen in 1 ED for same issue, no pain meds are helping. Denies diarrhea, urinary issues, or N/V. Coronavirus screen: Vaccine status: Patient reports receiving the 2nd dose of the covid vaccine. Client denies travel out of the [place] in the last 14 days. Ebola Screen: Patient negative for fever greater than or equal to 101.5 degrees Fahrenheit, and additional compatible Ebola Virus Disease symptoms Patient denies exposure to infectious person. Initial Sepsis Screen: Does the patient meet any 2 criteria? No. Patient's initial sepsis screen is negative. Does the patient have a suspected source of infection? No. Patient's initial sepsis screen is negative. Risk Assessment: Do you want to hurt yourself or someone else? Patient reports no desire to harm self or others. Onset of symptoms was December 02, 2021. 08:50 Method [facility] Ar[facility] 08:50 Acuity: YELENA 3 1 Triage Assessment: 08:53 General: Appears in no apparent distress. uncomfortable, Behavior is cooperative. Pain: 1 Complains of pain in right lower quadrant Pain currently is 6 out of 10 on a pain scale. Pain began x 2 weeks. GI: Last BM was December 16, 2021. Patient currently denies diarrhea, nausea, vomiting. 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 - Social history:: Smoking status: Patient denies any tobacco usage or history of. - Family history:: not pertinent. - Hospitalizations: : No recent hospitalization is reported. Screenin:57 Abuse screen: Denies threats or abuse. Nutritional screening: No deficits noted. vg1 Tuberculosis screening: No symptoms or risk factors identified. Fall Risk None identified. Assessment: 09:02 Reassessment: No changes from previously documented assessment. Patient and/or family ll1 updated on plan of care and expected duration. Pain level reassessed. 09:59 Reassessment: No changes from previously documented assessment. Patient and/or family ll1 updated on plan of care and expected duration. Pain level reassessed. Patient is alert, oriented x 3, equal unlabored respirations, skin warm/dry/pink. 11:39 Reassessment: No changes from previously documented assessment. gait steady to restroom.ll1 12:20 Reassessment: No changes from previously documented assessment. Patient and/or family ll1 updated on plan of care and expected duration. Pain level reassessed. 13:15 Reassessment: No changes from previously documented assessment. Patient and/or family ll1 updated on plan of care and expected duration. Pain level reassessed. 13:53 Reassessment: No changes from previously documented assessment. Patient and/or family ll1 updated on plan of care and expected duration. Pain level reassessed. 14:33 Reassessment: No changes from previously documented assessment. Patient and/or family ll1 updated on plan of care and expected duration. Pain level reassessed. Patient is alert, oriented x 3, equal unlabored respirations, skin warm/dry/pink. 14:46 GI: Bowel sounds present X 4 quads. Abd is soft and non tender X 4 quads. ll1 Vital Signs: 08:50 BP 147 / 79; Pulse 77; Resp 18; Temp 98.4; Pulse Ox 96% on R/A; Weight 88.9 kg; Height vg1 5 ft. 5 in. (165.10 cm); Pain 6/10; 10:10 BP 125 / 81; Pulse 58; Pulse Ox 96% on R/A; ll1 12:28 BP 144 / 71; Pulse 65; Resp 17; Pulse Ox 97% on R/A; ll1 13:15 BP 143 / 63; Pulse 62; Pulse Ox 98% ; ll1 14:33 BP 143 / 81; Pulse 57; Resp 16; Pulse Ox 99% ; ll1 08:50 Body Mass Index 32.62 (88.90 kg, 165.10 cm) vg1 ED Course: 08:36 Patient arrived in ED. rg4 08:39 Kevin Fountain MD is Attending Physician. rn 08:43 Bed in low position. Call light in reach. Pulse ox on. NIBP on. vg1 08:47 James Basurto, RN is Primary Nurse. ll1 08:47 Arm band placed on Patient placed in an exam room, on a stretcher. ll1 08:53 Triage completed. vg1 09:00 Inserted saline lock: 22 gauge in left antecubital area, using aseptic technique. Blood ll1 collected. 10:14 Abdomen In Process Unspecified. EDMS 14:46 No provider procedures requiring assistance completed. IV discontinued, intact, ll1 bleeding controlled, No redness/swelling at site. Pressure dressing applied. Administered Medications: 09:12 Drug: morphine 2 mg {Note: rass 0, pain 6/10 R pelvic area.} Route: IVP; Infused Over: ll1 4 mins; Site: left antecubital; 12:28 Follow up: Response: No adverse reaction; RASS: Alert and Calm (0) ll1 11:57 Drug: Flagyl (metroNIDAZOLE) 500 mg Volume: 100 ml; Route: IVPB; Rate: 200 ml/hr; ll1 Infused Over: 30 mins; Site: left antecubital; 13:15 Follow up: Response: No adverse reaction; IV Status: Completed infusion; IV Intake: ll1 100ml 13:15 Drug: Cipro (ciprofloxacin) 400 mg Volume: 200 ml; Route: IVPB; Infused Over: 60 mins; ll1 Site: left antecubital; 14:47 Follow up: Response: No adverse reaction; IV Status: Completed infusion; IV Intake: ll1 200ml 13:16 Not Given (not neededd): Zofran (Ondansetron) 4 mg IVP once; over 2 minutes ll1 Medication: 08:58 VIS not applicable for this client. vg1 Intake: 13:15 IV: 100ml; Total: 100ml. ll1 14:47 IV: 200ml; Total: 300ml. ll1 Outcome: 11:54 Discharge ordered by . rn 14:46 Discharged to home ambulatory. ll1 14:46 Condition: stable 14:46 Discharge instructions given to patient, Instructed on discharge instructions, follow up and referral plans. medication usage, Demonstrated understanding of instructions, follow-up care, medications, Prescriptions given X 2. 14:47 Patient left the ED. ll1 Signatures: Dispatcher [employer] EDMS Kevin Fountain MD MD rn Garcia, Diane 4 Alvina Adam RN RN vg1 James Basurto RN RN ll1 Corrections: (The following items were deleted from the chart) 08:53 08:53 Home Meds: None; vg1 vg1
[2021-12-16 15:00] VITALS: TEMP 98.4
[2021-12-16 15:19] VITALS: BP 143/81; O2SAT 99
== END 2021-12-16 14:47 | disposition home or self-care (01) ==
LOC: ER 08:32
DX: A09 Infectious gastroenteritis and colitis, unspecified (principal); I10 Essential (primary) hypertension
CPT/HCPCS: 96365; 96367; 85025; 36415; 83690; 80053; 74177; 96375; 99284; 96366; Q9967; J2270; J2405; J0744

== ENCOUNTER 2021-12-18 18:12 | Emergency (ER) | payer OTHER ==
--- OUTSIDE RECORDS SUMMARY | 2021-12-18 18:18 | XMS REPORT | Continuity of Care Document ---
:1950 Author Organization [facility] t Address [address] [place] [address] Care Team Providers Name Role Phone Popeye Mclaughlin Primary Care Physician [phone] Akosua Marin Attending Clinician Unavailable Caro Shoemaker Attending Clinician Unavailable Nabil Noble MD Attending Clinician Anna Jackson MD Attending Clinician Catracho Ott Attending Clinician CATRACHO YANG Attending Clinician Unavailable John Almodovar Attending Clinician THOMAS HAIDER Attending Clinician Unavailable Lab, Ang - Db Attending Clinician Unavailable JOHN BYRD Attending Clinician Unavailable Doctor Unassigned, [place] Attending Clinician Unavailable LING MA Attending Clinician Unavailable Ling Ma MD Attending Clinician BUTCH ISBELL Attending Clinician Unavailable Nurse, Adc Pob Immunization Attending Clinician Unavailable Butch Isbell DO Attending Clinician ANDREW HAYWARD Attending Clinician Unavailable Rajlisa_P Attending Clinician Unavailable NABIL NOBLE M.D. Attending Clinician Unavailable Caro Shoemaker Admitting Clinician Unavailable LING MA Admitting Clinician Unavailable Moriah_Daniel Admitting Clinician Unavailable Payers Payer Name Policy Type Policy Number Effective Date Expiration Date S ource AETNA MEDICARE [id number] 2017 PPO 00:00:00 [employer]ET[employer] MEDICARE 53 [id number] 2021 [facility] PPO 00:00:00 [facility] Problems Condition Condition Condition Status Onset Resolution Last Treating Co mments Source Name Details Category Date Date Treatment Clinician Date Left Left Disease Active Last [facility] Achilles Achilles 8-30 Assessmen [facility] tendinitis tendinitis 00:00: t & Plan: 00 [...] 4-22 it y of n n 00:00: [place] 00 Medical Branch Puncture Puncture Disease Active Unive rs wound of wound of 4-22 ity of right right 00:00: [place] upper arm, upper arm, 00 Me dical initial initial Branch encounter encounter Encounter Encounter Disease Active Uni vers to to 4-22 ity of establish establish 00:00: [facility] Medical [facility] Mixed Mixed Disease Active 2020-02 Univers hyperlipid hyperlipid 06 it y of emia emia 00:00: [place] [facility] Prediabete Prediabete Disease Active 2020-02 U nivers s s 1-06 ity of 00:00: [place] 00 Medical Branch Primary Primary Disease Active Last [...] , and once she obtains it from [employer] we may administe r that for her. [...] Prinzmetal Disease [facility] An[facility] Hypertensi Hypertensi Disease Active U nivers on on [facility] [id number] Calculus Problem Active Commo n of Spirit gallbladde - [facility] r without St cholecysti formerly [facility] Medical without Center obstructio n [id number] History of Problem Active Co mmon cholecyste Spirit ctomy - [facility] [id number] Coronary Problem Active Commo n artery Spirit spasm - [facility] [id number] Benign Problem Active Common essential [facility] HTN - [facility] [id number] 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, St unspecifie [facility] [id number] Allergy to Problem Active Co mmon beef Spirit - [facility] Allergies, Adverse Reactions, Alerts Allergy [...] Active Univers ALLERGIE Class ity of S [place] [facility] Family History Family Member Diagnosis Comments Start Date Stop Date Source Father Family history of cardiac [facility] disorder Father Family history of [facility] hypertension Father Family history of [facility] myocardial infarction Social History Social Habit Start Date Stop Date Quantity Comments Source History of Tobacco [facility] - Use [facility] Sex Assigned At [facility] farrah - [facility] History [facility] Health Alcohol Std Drinks History [facility] Health Alcohol Binge History [facility], 1928–1983 Alcohol Comment Exposure to 2021-10-12 2021-10-22 Not sure [place] [facility] SARS-CoV-2 (event) 00:00:00 13:27:00 Alcohol intake 2021-10-22 2021-10-22 Lifetime [place] [facility] 00:00:00 00:00:00 non-drinker (finding) Tobacco use and 2020-09-18 2020-09-18 Smokeless tobacco [place] [facility] exposure 00:00:00 00:00:00 non-user History SDOH 2020-09-18 2020-09-18 1 [facility] Alcohol Frequency 00:00:00 00:00:00 Smoking Status Start Date Stop Date Source Never Smoker [facility] Medications Ordered Filled Start Stop Current Ordering Indication Dosage Frequency Signature Comments Components Source Medication Medication Date Date Medication? Clinician (SIG) Name Name ketorolac 2021- No [id number] 30mg Un breonna (TORADOL) 07-15 ity of injection 22:45: 21:37 [place] 30 mg 00 :00 Medical Branch ketorolac 2021- No [id number] 30mg 30 mg, Univers (TORADOL) 07-15 Intramuscu ity of injection 22:45: 21:37 [place]CE[place] 30 mg 00 :00 1 dose, On Medical Mon Branch 07/15/21 at 1745, Routine
film crew member approving Restricted medication : ANNA JACKSON cyclobenzap Yes [id number] 5mg Take 1 Univers rine 5 mg 07-15 tablet by ity o f tablet 00:00: mouth at [place] 00 bedtime. Medical Branch mupirocin 2 2021- No [id number] Apply to Univers % ointment 06-14 [id number] area(s) 3 i ty of 00:00: 04:59 (three) [place] 00 :00 times Medical daily for Branch 14 days. mupirocin 2 2021- No [id number] Apply to Univers % ointment 06-14 [id number] area(s) 3 i ty of 00:00: 04:59 (three) [place] 00 :00 times Medical daily for Branch 14 days. mupirocin 2 2021- No [id number] Apply to Univers % ointment 06-14 [id number] area(s) 3 i ty of 00:00: 04:59 (three) [place] 00 :00 times Medical daily for Branch 14 days. mupirocin 2 2021- No [id number] Apply to Univers % ointment 06-14 [id number] area(s) 3 i ty of 00:00: 04:59 (three) [place] 00 :00 times Medical daily for Branch 14 days. mupirocin 2 2021- No [id number] Apply to Univers % ointment 06-14 [id number] area(s) 3 i ty of 00:00: 04:59 (three) [place] 00 :00 times Medical daily for Branch 14 days. mupirocin 2 2021- No [id number] Apply to Univers % ointment 06-14 [id number] area(s) 3 i ty of 00:00: 04:59 (three) [place] 00 :00 times Medical daily for Branch 14 days. amLODIPine 2021-0 Yes 5mg Take 5 mg Un breonna 5 mg tablet 4-04 by mouth ity of 00:00: daily. [place] [facility] Branch amLODIPine 2021-0 Yes 5mg Take 5 mg Un breonna 5 mg tablet 4-04 by mouth ity of 00:00: daily. [place] [facility] Branch amLODIPine 2021-0 Yes 5mg Take 5 mg Un breonna 5 mg tablet 4-04 by mouth ity of 00:00: daily. [place] [facility] Branch amLODIPine 2021-0 Yes 5mg Take 5 mg Un breonna 5 mg tablet 4-04 by mouth ity of 00:00: daily. [place] [facility] Branch amLODIPine 2-0 Yes 5mg Take 5 mg Un breonna 5 mg tablet 4-04 by mouth ity of 00:00: daily. [place] [facility] amLODIPine 2-0 Yes 5mg Take 5 mg Un breonna 5 mg tablet 4-04 by mouth ity of 00:00: daily. [place] [facility] Branch amLODIPine 2-0 Yes 5mg Take 5 mg Un breonna 5 mg tablet 4-04 by mouth ity of 00:00: daily. [address] Branch nitroglycer 2020-[address] [...] s mg tablet 0-19 ity of 00:00: [place] [facility] losartan 50 2020-02 Yes Univer s mg tablet 0-19 ity of 00:00: [place] [facility] losartan 50 2020-02 Yes Univer s mg tablet 0-19 ity of 00:00: [place] [facility] losartan 50 2020-02 Yes Univer s mg tablet 0-19 ity of 00:00: [place] [facility] losartan 50 2020-02 Yes Univer s mg tablet 0-19 ity of 00:00: [place] [facility] losartan 50 2020-02 Yes Univer s mg tablet 0-19 ity of 00:00: [place] [facility] losartan 50 2020-02 Yes Univer s mg tablet 0-19 ity of 00:00: [place] [facility] metoprolol 2021-0 Yes 1{tbl} Take 1 UT tartrate 7-27 tablet by Health (Lopressor) 19:55: mouth. 100 MG 04 tablet metoprolol 2021-0 Yes 1{tbl} Take 1 UT tartrate 7-27 tablet by Health (Lopressor) 19:55: mouth. 100 MG 04 tablet metoprolol 2021-0 Yes 1{tbl} Take 1 UT tartrate 7-27 tablet by Health (Lopressor) 14:55: mouth. 100 MG 04 tablet olmesartan 2021-0 Yes 20mg QD Take 20 [...] 00 each day. olmesartan 2021-0 Yes 20mg Take 20 mg U nivers 20 mg 6-28 by mouth ity of tablet 00:00: daily. [address] olmesartan 2021-0 Yes 20mg Take 20 mg U nivers 20 mg 6-28 by mouth ity of tablet 00:00: daily. [address] olmesartan 2021-0 Yes 20mg Take 20 mg U nivers 20 mg 6-28 by mouth ity of tablet 00:00: daily. [address] olmesartan 2021-0 Yes 20mg Take 20 mg U nivers 20 mg 6-28 by mouth ity of tablet 00:00: daily. [address] olmesartan 2021-0 Yes 20mg Take 20 mg U nivers 20 mg 6-28 by mouth ity of tablet 00:00: daily. [address] olmesartan 2021-0 Yes 20mg Take 20 mg U nivers 20 mg 6-28 by mouth ity of tablet 00:00: daily. [address] olmesartan 2021-0 Yes 20mg Take 20 mg U nivers 20 mg 6-28 by mouth ity of tablet 00:00: daily. [address] triamcinolo Yes [id number] Apply to Univers ne 0.025 % 3-11 area(s) 2 ity of cream 00:00: (two) [place] 00 times Medical daily. Branch fluticasone Yes [id number] 2{spray Use 2 Univers propionate 3-11 } Sprays in ity of 50 00:00: each [place] mcg/actuati 00 nostril Medic al on nasal daily. Branch spray loratadine Yes [id number] 10mg Take 1 U nivers 10 mg 3-11 tablet by ity of tablet 00:00: mouth [place] 00 daily. Medical Branch triamcinolo Yes [id number] Apply to Univers ne 0.025 % 3-11 area(s) 2 ity of cream 00:00: (two) [place] 00 times Medical daily. Branch fluticasone Yes [id number] 2{spray Use 2 Univers propionate 3-11 } Sprays in ity of 50 00:00: each [place] mcg/actuati 00 nostril Medic al on nasal daily. Branch spray loratadine Yes [id number] 10mg Take 1 U nivers 10 mg 3-11 tablet by ity of tablet 00:00: mouth [place] 00 daily. Medical Branch triamcinolo Yes [id number] Apply to Univers ne 0.025 % 3-11 area(s) 2 ity of cream 00:00: (two) [place] 00 times Medical daily. Branch fluticasone Yes [id number] 2{spray Use 2 Univers propionate 3-11 } Sprays in ity of 50 00:00: each [place] mcg/actuati 00 nostril Medic al on nasal daily. Branch spray loratadine Yes [id number] 10mg Take 1 U nivers 10 mg 3-11 tablet by ity of tablet 00:00: mouth [place] 00 daily. Medical Branch triamcinolo Yes [id number] Apply to Univers ne 0.025 % 3-11 area(s) 2 ity of cream 00:00: (two) [place] 00 times Medical daily. Branch fluticasone Yes [id number] 2{spray Use 2 Univers propionate 3-11 } Sprays in ity of 50 00:00: each [place] mcg/actuati 00 nostril Medic al on nasal daily. Branch spray loratadine Yes [id number] 10mg Take 1 U nivers 10 mg 3-11 tablet by ity of tablet 00:00: mouth [place] 00 daily. Medical Branch triamcinolo Yes [id number] Apply to Univers ne 0.025 % 3-11 area(s) 2 ity of cream 00:00: (two) [place] 00 times Medical daily. Branch fluticasone Yes [id number] 2{spray Use 2 Univers propionate 3-11 } Sprays in ity of 50 00:00: each [place] mcg/actuati 00 nostril Medic al on nasal daily. Branch spray loratadine Yes [id number] 10mg Take 1 U nivers 10 mg 3-11 tablet by ity of tablet 00:00: mouth [place] 00 daily. Medical Branch triamcinolo Yes [id number] Apply to Univers ne 0.025 % 3-11 area(s) 2 ity of cream 00:00: (two) [place] 00 times Medical daily. Branch fluticasone Yes [id number] 2{spray Use 2 Univers propionate 3-11 } Sprays in ity of 50 00:00: each [place] mcg/actuati 00 nostril Medic al on nasal daily. Branch spray loratadine Yes [id number] 10mg Take 1 U nivers 10 mg 3-11 tablet by ity of tablet 00:00: mouth [place] 00 daily. Medical Branch triamcinolo Yes [id number] Apply to Univers ne 0.025 % 3-11 area(s) 2 ity of cream 00:00: (two) [place] 00 times Medical daily. Branch fluticasone Yes [id number] 2{spray Use 2 Univers propionate 3-11 } Sprays in ity of 50 00:00: each [place] mcg/actuati 00 nostril Medic al on nasal daily. Branch spray loratadine Yes [id number] 10mg Take 1 U nivers 10 mg 3-11 tablet by ity of tablet 00:00: mouth [place] 00 daily. Medical Branch metoprolol 2017-0 Yes TK 1 T PO Un breonna succinate 9-04 D. ity of XL 100 mg 00:00: [place] 24 hr Medical tablet Branch metoprolol Yes TK 1 T PO Un breonna succinate 10-27 D. ity of XL 100 mg 00:00: [place] 24 hr Medical tablet Branch metoprolol Yes TK 1 T PO Un breonna succinate 10-27 D. ity of XL 100 mg 00:00: [place] 24 hr Medical tablet Branch metoprolol Yes TK 1 T PO Un breonna succinate 10-27 D. ity of XL 100 mg 00:00: [place] 24 hr Medical tablet Branch metoprolol Yes TK 1 T PO Un breonna succinate 10-27 D. ity of XL 100 mg 00:00: [place] 24 hr Medical tablet Branch metoprolol Yes TK 1 T PO Un breonna succinate 10-27 D. ity of XL 100 mg 00:00: [place] 24 hr Medical tablet Branch metoprolol Yes TK 1 T PO Un breonna succinate 10-27 D. ity of XL 100 mg 00:00: [place] 24 hr Medical tablet Branch Metoprolol Metoprolol [...] JUAN DAVID Inject one [facility] MG/4ML MG/4ML -11 RICHEY-BAR dose Physi ci Intra-artic Intra-artic 00:00: RE M.D. ans ular ular 00 Solution Solution Prefilled Prefilled Syringe Syringe Calcium + D Calcium + D No Calcium + D amLODIPine amLODIPine No 1.5{tab QD amLODIPine Besylate 5 Besylate 5 let} Besylate 5 MG MG MG Multi Multi No Multi Vitamin Vitamin Vitamin Vitamin E Vitamin E No Vitamin E Prevagen Prevagen No Prevagen Metoprolol Metoprolol No 1{table QD Metoprolol Tartrate Tartrate t_with_ Tartrate 100 MG 100 MG food} 100 MG Tumersaid Tumersaid No Tumersaid Calcium + D Calcium + D No Calcium + D amLODIPine amLODIPine No 1.5{tab QD amLODIPine Besylate 5 Besylate 5 let} Besylate 5 MG MG MG Multi Multi No Multi Vitamin Vitamin Vitamin Vitamin E Vitamin E No Vitamin E Prevagen Prevagen No Prevagen Metoprolol Metoprolol No 1{table QD Metoprolol Tartrate Tartrate t_with_ Tartrate 100 MG 100 MG food} 100 MG Tumersaid Tumersaid No Tumersaid Immunizations Ordered Filled Immunization Date Status Comments [facility] e Immunization Name Name [facility] 2021-06-14 Completed University of 00:00:00 [facility] TD 2021-06-14 Completed University of 00:00:00 [facility] TD 2021-06-14 Completed University of 00:00:00 [facility] TDAP 2021-06-14 Completed University of 00:00:00 [facility] TDAP 2021-06-14 Completed University of 00:00:00 [facility] TDAP 2021-06-14 Completed University of 00:00:00 [facility] TDAP 2021-06-14 Completed University of 00:00:00 [facility] SARS-COV-2 COVID-19 2020-12-25 Completed Unive rsity of MODERNA BOOSTER 00:00:00 [facility] VACCINE Branch SARS-COV-2 COVID-19 2020-12-25 Completed Unive rsity of MODERNA BOOSTER 00:00:00 [facility] VACCINE Branch SARS-COV-2 COVID-19 2020-12-25 Completed Unive rsity of MODERNA BOOSTER 00:00:00 [facility] VACCINE Branch SARS-COV-2 COVID-19 2020-12-25 Completed Unive rsity of MODERNA BOOSTER 00:00:[address] [facility] ical VACCINE Branch SARS-COV-2 COVID-19 2020-12-25 Completed Unive rsity of MODERNA 0.25ML 00:00:00 [facility] BOOSTER VACCINE Branch SARS-COV-2 COVID-19 2020-12-25 Completed Unive rsity of MODERNA 0.25ML 00:00:00 [place] Medi kia BOOSTER VACCINE Branch SARS-COV-2 COVID-19 2020-12-25 Completed Unive rsity of MODERNA 0.25ML 00:00:00 [facility] Branch Influenza High Dose 2020-10-24 Completed Unive rsity of 00:00:00 [facility] Branch Influenza High Dose 2020-10-24 Completed Unive rsity of 00:00:00 [facility] Branch Influenza High Dose 2020-10-24 Completed Unive rsity of 00:00:00 [facility] Branch Influenza High Dose 2020-10-24 Completed Unive rsity of 00:00:00 [facility] Branch Influenza High Dose 2020-10-24 Completed Unive rsity of 00:00:00 [facility] Branch Influenza High Dose 2020-10-24 Completed Unive rsity of 00:00:00 [facility] Branch Influenza High Dose 2020-10-24 Completed Unive rsity of 00:00:00 [facility] Branch SARS-COV-2 COVID-19 2020-04-28 Completed Unive rsity of MODERNA VACCINE 00:00:[address] [facility] ical Branch SARS-COV-2 COVID-19 2020-04-28 Completed Unive rsity of MODERNA VACCINE 00:00:00 [facility] ical Branch SARS-COV-2 COVID-19 2020-04-28 Completed Unive rsity of MODERNA VACCINE 00:00:00 [facility] ical Branch SARS-COV-2 COVID-19 2020-04-28 Completed Unive rsity of MODERNA VACCINE 00:00:00 [facility] ical Branch SARS-COV-2 COVID-19 2020-04-28 Completed Unive rsity of MODERNA VACCINE 00:00:00 [facility] ical Branch SARS-COV-2 COVID-19 2020-04-28 Completed Unive rsity of MODERNA VACCINE 00:00:00 [facility] ical Branch SARS-COV-2 COVID-19 2020-04-28 Completed Unive rsity of MODERNA VACCINE 00:00:00 [facility] ical Branch SARS-COV-2 COVID-19 2020-03-31 Completed Unive rsity of MODERNA VACCINE 00:00:00 [facility] ical Branch SARS-COV-2 COVID-19 2020-03-31 Completed Unive rsity of MODERNA VACCINE 00:00:00 [facility] ical Branch SARS-COV-2 COVID-19 2020-03-31 Completed Unive rsity of MODERNA VACCINE 00:00:00 [facility] SARS-COV-2 COVID-19 2020-03-31 Completed Unive rsity of MODERNA VACCINE 00:00:00 [facility] SARS-COV-2 COVID-19 2020-03-31 Completed Unive rsity of MODERNA VACCINE 00:00:00 [facility] SARS-COV-2 COVID-19 2020-03-31 Completed Unive rsity of MODERNA VACCINE 00:00:00 [facility] SARS-COV-2 COVID-19 2020-03-31 Completed Unive rsity of MODERNA VACCINE 00:00:00 [facility] Shingrix Shingrix 2020-02-23 Completed [facility] - 10:04:00 [facility] Shingrix Shingrix 2020-02-23 Completed [facility] - 10:04:00 [facility] FluAD FluAD 2019-11-23 Completed [facility] - 10:03:00 [facility] FluAD FluAD 2019-11-23 Completed [facility] - 10:03:00 [facility] Shingrix Shingrix 2019-02-22 Completed [facility] - 10:04:00 [facility] Shingrix Shingrix 2019-02-22 Completed [facility] - 10:04:00 [facility] Prevnar 13 (PCV13) Prevnar 13 (PCV13) 2019-02-22 Completed [facility] - 10:03:00 [facility] Prevnar 13 (PCV13) Prevnar 13 (PCV13) 2019-02-22 Completed [facility] - 10:03:00 [facility] Pneumococcal 13 2018-11-09 Completed Universit y of Conjugate, PCV13 00:00:00 [place] Me dical (Prevnar 13) Branch Zoster Vaccine 2018-11-09 Completed University of Recombinant 00:00:00 [facility] Pneumococcal 13 2018-11-09 Completed Universit y of Conjugate, PCV13 00:00:00 [place] Me dical (Prevnar 13) Branch Zoster Vaccine 2018-11-09 Completed University of Recombinant 00:00:00 [facility] Pneumococcal 13 2018-11-09 Completed Universit y of Conjugate, PCV13 00:00:00 [facility] dical (Prevnar 13) Branch Zoster Vaccine 2018-11-09 Completed University of Recombinant 00:00:00 [facility] Pneumococcal 13 2018-11-09 Completed Universit y of Conjugate, PCV13 00:00:00 [facility] dical (Prevnar 13) Branch Zoster Vaccine 2018-11-09 Completed University of Recombinant 00:00:00 [facility] Pneumococcal 13 2018-11-09 Completed Universit y of Conjugate, PCV13 00:00:00 [facility] dical (Prevnar 13) Branch Zoster Vaccine 2018-11-09 Completed University of Recombinant 00:00:00 [facility] Pneumococcal 13 2018-11-09 Completed Universit y of Conjugate, PCV13 00:00:00 [facility] dical (Prevnar 13) Branch Zoster Vaccine 2018-11-09 Completed University of Recombinant 00:00:00 [facility] Pneumococcal 13 2018-11-09 Completed Universit y of Conjugate, PCV13 00:00:00 [facility] dical (Prevnar 13) [place] Zoster Vaccine 2018-11-09 Completed University of Recombinant 00:00:00 [facility] Vital Signs Vital Name Observation Time Observation Value Comments Source height 2021-09-16 09:00:00 65 [in_i] [facility] weight 2021-09-16 09:00:00 198.5 [lb_av] [facility] temperature 2021-09-16 09:00:00 98.7 [degF] [facility] bmi 2021-09-16 09:00:00 33.03 kg/m2 [facility] oximetry 2021-09-16 09:00:00 96 % [facility] respiratory rate 2021-09-16 09:00:00 16 /min Comm on [facility] blood pressure 2021-09-16 09:00:00 150 mm[Hg] [facility] - systolic [facility] blood pressure 2021-09-16 09:00:00 81 mm[Hg] [facility] - diastolic [facility] height 2021-09-16 10:00:00 65 [in_i] [facility] weight 2021-09-16 10:00:00 198.5 [lb_av] Common [facility] temperature 2021-09-16 10:00:00 98.7 [degF] Common [facility] bmi 2021-09-16 10:00:00 33.03 kg/m2 Common [facility] oximetry 2021-09-16 10:00:00 96 % Common [facility] respiratory rate 2021-09-16 10:00:00 16 /min Comm on [facility] blood pressure 2021-09-16 10:00:00 138 mm[Hg] Common [facility] - systolic [facility] blood pressure 2021-09-16 10:00:00 80 mm[Hg] Common [facility] - diastolic [facility] Systolic blood 2021-07-15 21:24:00 140 mm[Hg] Univer sity of [facility] Diastolic blood 2021-07-15 21:24:00 79 mm[Hg] Unive rsity of [facility] Heart rate 2021-07-15 21:24:00 63 /min Universi ty [facility] [place] Body temperature 2021-07-15 21:24:00 36.67 [facility] 2021-07-15 21:24:00 18 /min [facility] height 2021-07-15 21:24:00 165.1 cm Universi ty [facility] [place] Body weight 2021-07-15 21:24:00 89.359 kg Universi ty [facility] [place] BMI 2021-07-15 21:24:00 32.78 kg/m2 Universi ty [facility] [place] Oxygen saturation in 2021-07-15 21:24:00 98 /min University of Arterial blood by [facility] Pulse oximetry Branch Systolic blood 2021-06-14 14:06:00 116 mm[Hg] Univer sity of [facility] Diastolic blood 2021-06-14 14:06:00 72 mm[Hg] Unive rsity of [facility] Heart rate 2021-06-14 14:06:00 72 /min Universi ty of [facility] Body height 2021-06-14 14:06:00 166.4 cm [facility] Body weight 2021-06-14 14:06:00 89.676 kg [facility] BMI 2021-06-14 14:06:00 32.40 kg/m2 [facility] Oxygen saturation in 2021-06-14 14:06:00 97 /min University Arterial blood by [facility] Pulse oximetry Branch Procedures Procedure Date / Time Performing Clinician Source Performed TSH, 3RD GENERATION-Q 2021-06-14 15:16:00 Doctor Unassigned, [facility] Name [facility] VITAMIN B12-Q 2021-06-14 15:16:00 Doctor Unassigned, [facility] Name [facility] TDAP VACCINE, >11 YRS, IM 2021-06-14 14:35:52 John Byrd [facility] [place] ARTHROCENTESIS 2020-09-18 20:10:23 Nabil Noble [place] He alth ASPIR&/INJ MAJOR JT/BURSA W/O US US Extremity lower venous 2018-12-13 00:00:00 [facility] doppler bilat [id number] [U] XRAY KNEE 3 VWS LEFT 2018-12-10 00:00:00 [facility] [id number] [facility] Tubal Ligation [facility] Hysterectomy [facility] History of Breast Surgery [facility] Lumpectomy History of Bunion [facility] Correction With Metatarsal Osteotomy Encounters Start End Encounter Admission Attending Care Care Encounter Source Date/Time Date/Time Type Type Clinicians Facility Department ID 2021-09-[address] [facility] [id number] Common 09:11:01 [place] [address] [facility] 2020-11-13 Inpatient ASHUTOSH Persaud ADMI [id number] [facility] 09:00:00 [facility] 2020-10-16 Outpatient [facility] [id number] [place] 11:32:42 Health 2020-09-17 Outpatient [facility] [id number] [place] 16:44:43 Health 2021-10-22 2021-10-22 Outpatient [facility] [id number] [place] 13:50:00 14:58:30 Health 2021-10-222021-10-22 Outpatient [facility] [id number] [place] 13:45:00 14:56:04 Health 2021-10-22 2021-10-22 Office Fara [facility] 1.2.840.114 [id number] [place] 13:45:00 14:55:31 Visit ABILIO Perdomo 350.1.13.58 H [facility] 9.2.7.2.686 [place] 0 [phone] 7 2021-09-16 2021-09-16 [facility] [id number] Common 00:00:00 00:00:00 Medicare Spiri t Wellness - [facility] 2021-09-16 2021-09-16 OFFICE [facility] [id number] Co mmon 00:00:00 00:00:00 VISIT EST Spir it PT LEVEL 3 - [facility] 2021-07-15 2021-07-15 Urgent Anna Jackson [facility] ..840.114 [id number] Univers 16:20:00 16:40:00 Care Catracho Yang [facility] 350.1.13.10 ity of [place] 4.2.7.2.686 [place] SAI?BLEA [phone] [address] MEDICAL OFFICE BUILDING 2021-07-15 2021-07-15 Outpatient R [facility] [id number] Univers 16:20:00 16:20:00 CATRACHO napoles o f [facility] 2021-06-26 2021-06-26 Telephone [facility] 1..[id number] Univers 00:00:00 00:00:00 HealthyOut 350.1.13.10 it y of [place] 4.2.7.2.686 [place] SAI?BLEA [phone] [address] MEDICAL OFFICE BUILDING 2021-06-25 2021-06-25 Telephone [facility] 1..[id number] [id number] Univers 00:00:00 00:00:00 John HEALTH 350.1.13.10 it y of [place] 4.2.7.2.686 [place] SAI?BLEA [phone] Me dicnancy MITCHELL [address] [facility] 2021-06-17 2021-06-17 Outpatient R [facility] [id number] Univers 08:30:00 08:30:00 THOMAS napoles [facility] 2021-06-14 2021-06-14 Soap [facility], Ang - Db [facility] 1.2.840.1 14 [id number] Univers 10:00:00 10:15:00 Visit John Byrd 350.1.13.10 ity of [place] 4.2.7.2.686 [place] SAI?BLEA [phone] Nd armand MITCHELL [address] [facility] 2021-06-14 2021-06-14 Outpatient R [facility] [id number] Univers 10:00:00 10:00:00 JOHN mimijonn [facility] 2021-06-14 2021-06-14 Outpatient R [facility] [id number] Univers 09:00:00 09:53:00 JOHN mimijonn [facility] 2021-06-14 2021-06-14 [facility] 1.2.840.114 [id number] Univers 09:00:00 09:53:00 Visit John [facility] 350.1.13.10 it y of [place] 4.2.7.2.686 [place] SAI?BLEA [phone] Nd armand VILLA [address] [facility] 2021-06-14 2021-06-14 Orders Doctor MONTERO 1.2.840.114 [id number] Univers 00:00:00 00:00:00 Only Unassigned, JAE 350.1.13.10 ity of [place] [facility] 4.2.7.2.686 [place] as [phone] [address] 2021-01-21 2021-01-21 Outpatient R [facility] [id number] Univers 09:53:40 23:59:00 WONDIFUL ity o f [facility] 2021-01-21 2021-01-21 Hospital [facility] 1.2.698.223 [id number] Univers 09:40:00 23:59:00 Encounter Wonchaseful A ABELARDOTON 350.1.13.10 it[place] [id number] [facility] [address] 2021-01-21 2021-01-21 Orders Doctor WINSTON 1.2.840.114 [id number] Univers 00:00:00 00:00:00 Only Unassigned, JAE 350.1.13.10 ity of [place] [facility] 4.2.7.2.686 [place] as [phone] [facility] [address] 2020-12-28 2020-12-28 Telephone Jyoti [facility] 1.2.840.114 [id number] Univers 00:00:00 00:00:00 Wondiful A HEALTH 350.1.13.10 ity [facility] 4.2.7.2.686 [place] SAI?BLEA [phone] Nd armand VILLA [address] [facility] 2020-12-25 2020-12-25 Outpatient Aurora [facility] [id number] Univers 09:30:00 09:30:00 BUTCH napoles [facility] 2020-12-25 2020-12-25 Imm/Inj Nurse, Adc Pob Immunization [facility] 1.2.840.114 [id number] Univers 09:09:07 09:11:08 Visit Butch Isbell 350.1.13 .10 ity of [facility] 4.2.7.2.686 [place] [facility] [id number] Nd armand LEMUS [address] [facility] 2020-12-24 2020-12-24 Soap [facility], Ang - Db [facility] 1.2.840.1 14 [id number] Univers 07:44:02 07:59:02 Visit Ling Ma HEALTH 350.1.13.1 0 [facility] 4.2.7.2.686 [place] SAI?BLEA [phone] Nd armand MITCHELL [address] MEDICAL OFFICE BUILDING 2020-12-24 2020-12-24 Outpatient R [facility] [id number] Univers 07:45:00 07:45:00 WONDIFUL ity o f [facility] 2020-12-24 2020-12-24 Outpatient R [facility] [id number] Univers 07:45:00 07:45:00 ity of [facility] 2020-12-24 2020-12-24 Orders WINSTON Ma 1.2.840.114 [id number] Univers 00:00:00 00:00:00 Only Wondiful A JAE 350.1.13.10 ity of [facility] 4.2.7.2.686 [place] [id number] [address] 2020-12-21 2020-12-21 [facility] [id number] Univers 08:15:00 08:15:00 WONDIFUL ity o f [facility] 2020-12-17 2020-12-17 [facility] [id number] Univers 15:00:00 16:10:37 WONDIFUL ity o f [facility] 2020-12-17 2020-12-17 Office Jyoti [facility] 1.2.840.114 [id number] [facility] 14:58:31 16:10:37 [facility] 350.1.13.10 ity [facility] 4.2.7.2.686 [place] SAI?BLEA [phone] [address] OFF[address] [facility] 2020-12-17 2020-12-17 [facility] [id number] Univers 15:00:00 15:00:00 WONDIFUL ity o f [facility] 2020-10-16 2020-10-16 Office Fara [facility] 1.2.840.114 [id number] [place] 11:14:40 11:29:40 Visit ABILIO Perdomo 350.1.13.58 H [facility] 9.2.7.2.686 [place] 0 [phone] [id number] 2020-09-18 2020-09-18 Office FernandaWarren [facility] 1.2.840.114 [id number] [place] 14:49:19 15:15:28 Visit ABILIO Perdomo 350.1.13.58 H [facility] 9.2.7.2.686 [place] 0 [id number] [id number] 2020-06-29 2020-06-29 Orders Doctor WINSTON 1.2.840.114 [id number] Univers 00:00:00 00:00:00 Only Unassigned, JAE 350.1.13.10 ity of [place] [facility] 4.2.7.2.686 [place] as [phone] [address] 2020-06-29 2020-06-29 Orders Doctor WINSTON 1.2.840.114 [id number] 00:00:00 00:00:00 Only Unassigned, JAE 350.1.13.10 [place] 4.2.7.2.686 [id number] 2020-05-03 2020-05-03 Office Jyoti [facility] 1.2.840.114 [id number] [facility] 08:45:59 10:06:08 Visit Wondiful A Health 350.1.13.10 ity of [place] 4.2.7.2.686 [place]ador as Professio [phone] Nd dical [address] Office [facility] 2020-05-03 2020-05-03 Office [facility] 1.2.840.114 [id number] 08:45:59 10:06:08 Visit Wondiful A Health 350.1.13.10 [place] 4.2.7.2.686 Professio [phone] [address] One 2020-05-03 2020-05-03 Outpatient R [facility]I [facility] [id number] Univers 09:00:00 09:00:00 WONDIFUL ity o f [facility] 2020-04-28 2020-04-28 Outpatient [facility] [id number] Univers 14:30:00 14:30:00 ity of [facility] 2020-03-31 2020-03-31 Outpatient [facility] [id number] Univers 14:40:00 14:40:00 ity [facility] 2019-10-11 2019-10-11 Outpatient ASKENASY, MHSE MHSE [id number] MH 09:30:00 16:44:00 [facility] 2019-05-25 2019-05-25 Outpatient Raju_P [facility] [id number] [place] 02:40:00 02:40:00 [facility] 2018-12-20 2018-12-20 Appointmen [facility] Orth[facility] [id number] [place] 13:30:00 13:30:00 t; FARA PERDOMO, - Advance NABIL Shaver ans ANDREW, M.D. M.D. 2018-12-13 2018-12-13 Appointmen [facility] Orthopedics [id number] [place] 13:15:00 13:15:00 t; FARA PERDOMO, - Advance NABIL Shaver ans ANDREW, M.D. M.D. Results [...] ALEXSANDRA (test code = ALEXSANDRA) PERFORMED BY [employer] [facility]; [address] [place] [phone]; CARO LEDESMA [facility] [id number] 08:00:00 Test Item Value Reference Range Interpretation Comments VITAMIN B12-Q (test 726 pg/mL 200-1100 code = 2132-9) ALEXSANDRA (test code = ALEXSANDRA) PERFORMED BY [employer] [facility]; [address] [place] [phone]; CARO LEDESMA MD [facility] Inj/Asp: L [id number] 20:10:23Nabil Perdomo MD ? ? 09/18/2020 ?3:17 PML Inj/Asp: L knee on 09/18/2020 3:10 PMIndications: painDetails: 22 G needle, anterolateral approachMedications: (Bupivacaine [facility][NOTE 3] number [id number] 3 mL 0.5% bupivacaine patient is applied today. Plus methylprednisolone 80 mg/mL 1 mL NDC number 8328-2288-03 patient supplied)Outcome: tolerated well, no immediate complications [...] to verify the correct patient, procedure, equipment, home support worker and site/side marked as required. Patient was prepped and draped in the usual sterile fashion (ChloraPrep was used to prep the area. ?Ethyl Chloride used for topical anesthesia. ).[facility][U] XRAY KNEE 3 VWS LEFT [id number] 13:40:00Images acquired, not reported on this accession number.[facility]
[2021-12-18 18:42] LABS: Urine Blood Negative (Negative); Urine Glucose Negative (Negative); Urine Protein Negative (Negative); Urine Specific Gravity <=1.005 (1.005-1.030)
[2021-12-18] MEDS ORDERED: ONDANSETRON 4 MG/2 ML VIAL ONE (18:48)
[2021-12-18] MEDS ORDERED: MORPHINE 4 MG/ML SYR ONE (18:48)
[2021-12-18] MEDS ORDERED: NA CHLORIDE 0.9% 1,000 ML ONE (18:48)
[2021-12-18 19:02] LABS: Absolute Lymphocytes (CBC) 2.4 K/uL (0.7-4.9); Hematocrit 39.8 % (36.0-45.0); Lymphocytes % 42.4 % (15.3-44.8); MCV 92.8 fL (80-100); MPV 7.7 fL (7.6-11.3); RBC Red Blood Cell Count 4.29 M/uL (3.86-4.86)
[2021-12-18 19:22] LABS: Albumin 3.8 g/dL (3.4-5.0); Bilirubin Total 0.7 mg/dL (0.2-1.0); Potassium 4.1 mmol/L (3.5-5.1); Protein, Total 8.2 g/dL (6.4-8.2)
[2021-12-18] MEDS ORDERED: LIDOCAINE 4% PATCH ONE (19:32)
--- NOTE | 2021-12-18 20:18 | RAD REPORT ---
EXAM DESCRIPTION: CT - Abdomen Pelvis W Contrast - 12/18/2021 8:03 pm CLINICAL HISTORY: RLQ pain and right flank pain COMPARISON: Abdomen Pelvis W Contrast dated 12/16/2021 TECHNIQUE: Biphasic, helical CT imaging of the abdomen and pelvis was performed following 100 ml non -ionic IV contrast. No oral contrast administered. All CT scans are performed using dose optimization technique as appropriate and may include automated exposure control or mA/KV adjustment according to patient size. FINDINGS: No suspicious findings in the lung bases. The liver, spleen, and pancreas show no suspicious findings. Gallbladder is absent. No abnormal degre e of biliary tree dilatation. Symmetric renal function is seen with no hydronephrosis or suspicious renal mass. No pyelonephritis o r acute parenchymal process. No bladder abnormalities. No adrenal abnormalities. Uterus is absent. Ov umesh are absent or atrophic. No adnexal abnormality. No dilated bowel loops or bowel wall thickening. Appendix is not identified and surgically absent by history. Moderately large stool volume seen in the right-side of the colon. No free air, free fluid o r inflammatory stranding. No hernia, mass or bulky lymphadenopathy. No suspicious bony findings. IMPRESSION: Contrast enhanced CT abdomen and pelvis showing no significant or suspicious finding.
[2021-12-18] MEDS ORDERED: DICYCLOMINE HCL 20 MG/2 ML AMP IM ONE (21:31)
--- NOTE | 2021-12-18 21:41 | ER ---
Nurse's Notes [facility] Name: Pari Nicole Age: 71 yrs Sex: Female : 1950 Arrival Date: 12/18/2021 Time: 18:16 Bed 7 Private MD: Diagnosis: Constipation, unspecified;Strain of muscle, fascia and tendon of lower back;Abdominal pain, unspecified Presentation: 12/18 18:22 Chief complaint: Patient states: This is my third time to be here in three weeks. I ld1 received Flagyl and Cipro for colitis. I have been taking the meds but I am in severe RLQ pain and R flank pain. Coronavirus screen: At this time, the client does not indicate any symptoms associated with coronavirus-19. Ebola Screen: No symptoms or risks identified at this time. Initial Sepsis Screen: Does the patient meet any 2 criteria? No. Patient's initial sepsis screen is negative. Does the patient have a suspected source of infection? No. Patient's initial sepsis screen is negative. Risk Assessment: Do you want to hurt yourself or someone else? Patient reports no desire to harm self or others. Onset of symptoms was December 18, 2021 at 18:23. 18:22 Method Of Arrival: Ambulatory ld1 18:22 Acuity: YELENA 3 ld1 Triage Assessment: 18:23 General: Appears in no apparent distress. uncomfortable, Behavior is cooperative, ld1 appropriate for age, anxious, crying. Pain: Complains of pain in right low back and right lower quadrant Pain does not radiate. Pain currently is 9 out of 10 on a pain scale. Quality of pain is described as throbbing, Pain began 2-3 days ago. Is continuous. EENT: No signs and/or symptoms were reported regarding the EENT system. Neuro: Level of Consciousness is awake, alert, obeys commands, Oriented to person, place, time, situation, Appropriate for age. Cardiovascular: Capillary refill < 3 seconds Patient's skin is warm and dry. Respiratory: Airway is patent Respiratory effort is even, unlabored. GI: Abdomen is round non-distended, Reports lower abdominal pain, upper abdominal pain, nausea. : No signs and/or symptoms were reported regarding the genitourinary system. Derm: No signs and/or symptoms reported regarding the dermatologic system. Musculoskeletal: No signs and/or symptoms reported regarding the musculoskeletal system. 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 - Social history:: Smoking status: Patient denies any tobacco usage or history of. Patient/guardian denies using alcohol. Screenin:56 Abuse screen: Denies threats or abuse. Denies injuries from another. Nutritional mb8 screening: No deficits noted. Tuberculosis screening: No symptoms or risk factors identified. Fall Risk None identified. Assessment: 18:45 General: Appears uncomfortable, Behavior is cooperative, appropriate for age, anxious. mb8 Pain: Complains of pain in abdomen and right lower quadrant and right low back Pain currently is 10 out of 10 on a pain scale. Cardiovascular: No deficits noted. Respiratory: No deficits noted. GI: Bowel sounds present X 4 quads. Abd is soft X 4 quads Reports lower abdominal pain, constipation, Patient currently denies diarrhea, nausea, vomiting. 20:28 Reassessment: Patient and/or family updated on plan of care and expected duration. Pain vc1 level reassessed. Patient is alert, oriented x 3, equal unlabored respirations, skin warm/dry/pink. Vital Signs: 18:22 BP 124 / 59; Pulse 80; Resp 20; Temp 97.9(TE); Pulse Ox 97% on R/A; Weight 88.9 kg; ld1 Height 5 ft. 5 in. (165.10 cm); Pain 9/10; 19:30 BP 136 / 71; Pulse 61; Resp 19; Pulse Ox 99% ; vc1 18:22 Body Mass Index 32.61 (88.90 kg, 165.10 cm) ld1 ED Course: 18:16 Patient arrived in ED. dt4 18:23 Triage completed. ld1 18:23 Arm band placed on right wrist. ld1 18:24 Linda Sosa RN is Primary Nurse. ld1 18:27 Gabriel Hawthorne NP is PHCP. pm1 18:27 Lawson Astorga DO is Attending Physician. pm1 18:45 Patient has correct armband on for positive identification. Bed in low position. Call mb8 light in reach. Side rails up X2. Client placed on continuous cardiac and pulse oximetry monitoring. NIBP monitoring applied. 18:45 No provider procedures requiring assistance completed. Inserted saline lock: 20 gauge mb8 in left antecubital area, using aseptic technique. Blood collected. 18:46 CBC with Diff Sent. mb8 18:46 CMP Sent. mb8 18:46 Lipase Sent. mb8 20:05 CT Abd/Pelvis - IV Contrast Only In Process Unspecified. EDMS 22:21 IV discontinued, intact, bleeding controlled, No redness/swelling at site. Pressure ll3 dressing applied. Administered Medications: 18:50 Drug: NS 0.9% 1000 ml Route: IV; Rate: 1 bolus; Site: left antecubital; mb8 22:00 Follow up: Response: No adverse reaction; IV Status: Completed infusion; IV Intake: ll3 1000ml 18:50 Drug: Zofran (Ondansetron) 4 mg Route: IVP; Site: left antecubital; mb8 18:53 Drug: morphine 4 mg Route: IVP; Infused Over: 4 mins; Site: left antecubital; mb8 20:25 Drug: Lidoderm Patch 5 % (700 mg/patch) 1 patches Route: Topical; Site: affected area; ll3 22:22 Follow up: Response: No adverse reaction ll3 21:36 Drug: Bentyl (dicyclomine) 20 mg Route: IM; Site: left gluteus; ll3 22:22 Follow up: Response: No adverse reaction; Marked relief of symptoms ll3 Medication: 18:56 VIS not applicable for this client. mb8 Intake: 22:00 IV: 1000ml; Total: 1000ml. ll3 Outcome: 21:41 Discharge ordered by MD. pm1 22:21 Discharged to home ambulatory, with family. ll3 22:21 Condition: stable 22:21 Discharge instructions given to patient, family, Instructed on discharge instructions, follow up and referral plans. medication usage, Demonstrated understanding of instructions, follow-up care, medications, Prescriptions given X 3. 22:23 Patient left the ED. ll3 Signatures: Dispatcher [employer] EDMS Gabriel Hawthorne NP [employer] pm1 Linda Sosa RN RN ld1 Cassie Butler, RN RN ll3 Kely Mukherjee, RN RN vc1 Rell Islas, RN RN mb8 Felicia Lancaster4
--- NOTE | 2021-12-18 21:42 | EDPHYS ---
Physician Documentation [facility] Name: Pari Nicole Age: 71 yrs Sex: Female : 1950 Arrival Date: 12/18/2021 Time: 18:16 Bed 7 Private MD: ED Physician Lawson Astorga HPI: 12/18 18:40 This 71 yrs old Black Female presents to ER via Ambulatory with complaints of Abdominal pm1 Pain, Back Pain. 18:40 The patient presents with abdominal pain right lower quadrant. Onset: The pm1 symptoms/episode began/occurred 3 week(s) ago. The symptoms radiate to Right flank to RLQ. Associated signs and symptoms: Pertinent positives: constipation, Pertinent negatives: nausea, vomiting, and diarrhea, chest pain, dysuria, fever, shortness of breath. The symptoms are described as crampy, sharp. Modifying factors: The symptoms are alleviated by nothing, the symptoms are aggravated by Lying down flat makes the pain worse. Severity of pain: in the emergency department the pain is actually worse. The patient has been recently seen at the [facility] Emergency Department, this week, for similar complaints labs were performed, CT scan was performed, was given a prescription for antibiotics, Patient was diagnosed with colitis and discharged home with antibiotics. Patient taking antibiotics as prescribed. Returning to the ER because her pain has not improved and is worse. Sharp pain in right flank area that radiates to RLQ. 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 - Social history:: Smoking status: Patient denies any tobacco usage or history of. Patient/guardian denies using alcohol. ROS: 18:40 Constitutional: Negative for fever, chills, and weight loss, Cardiovascular: Negative pm1 for chest pain, palpitations, and edema, Respiratory: Negative for shortness of breath, cough, wheezing, and pleuritic chest pain. 18:40 : Negative for injury, bleeding, discharge, and swelling, MS/Extremity: Negative for injury and deformity, Skin: Negative for injury, rash, and discoloration, Neuro: Negative for headache, weakness, numbness, tingling, and seizure. 18:40 Abdomen/GI: Positive for abdominal pain, of the right lower quadrant, Negative for nausea, vomiting, and diarrhea. 18:40 Back: Positive for flank pain, on the right. 18:40 All other systems are negative. Exam: 18:40 Constitutional: This is a well developed, well nourished patient who is awake, alert, pm1 and in no acute distress. Head/Face: Normocephalic, atraumatic. 18:40 Eyes: Exam is negative for acute changes, Periorbital structures: appear normal, Extraocular movements: no acute changes, Conjunctiva: no acute changes, no injection. 18:40 ENT: Exam is negative for acute changes, Mouth: no acute changes, Lips: normal, moist, Oral mucosa: normal, pink and intact, moist. 18:40 Cardiovascular: Exam negative for acute changes, Rate: normal, Rhythm: regular, Pulses: no pulse deficits are appreciated, Heart sounds: normal, normal S1and S2. 18:40 Respiratory: Exam negative for acute changes, respiratory distress, shortness of breath, Breath sounds: are clear throughout. Vital Signs: 18:22 BP 124 / 59; Pulse 80; Resp 20; Temp 97.9(TE); Pulse Ox 97% on R/A; Weight 88.9 kg; ld1 Height 5 ft. 5 in. (165.10 cm); Pain 9/10; 19:30 BP 136 / 71; Pulse 61; Resp 19; Pulse Ox 99% ; vc1 18:22 Body Mass Index 32.61 (88.90 kg, 165.10 cm) ld1 MDM: 18:27 Patient medically screened. pm1 21:38 Data reviewed: vital signs. Data interpreted: Pulse oximetry: on room air is 99 %. pm1 Interpretation: normal. 21:38 Counseling: I had a detailed discussion with the patient and/or guardian regarding: the pm1 historical points, exam findings, and any diagnostic results supporting the discharge/admit diagnosis, lab results, radiology results, the need for outpatient follow up, to return to the emergency department if symptoms worsen or persist or if there are any questions or concerns that arise at home. 12/18 18:40 Order name: CBC with Diff; Complete Time: 19:05 pm1 12/18 18:40 Order name: CMP; Complete Time: 19:23 pm1 12/18 18:40 Order name: Lipase; Complete Time: 19:23 pm1 12/18 18:42 Order name: Urine Dipstick-Ancillary; Complete Time: 18:55 EDMS 12/18 19:04 Order name: CT Abd/Pelvis - IV Contrast Only; Complete Time: 20:20 pm1 12/18 18:40 Order name: IV Saline Lock; Complete Time: 18:46 pm1 12/18 18:40 Order name: Labs collected and sent; Complete Time: 18:46 pm1 Administered Medications: 18:50 Drug: NS 0.9% 1000 ml Route: IV; Rate: 1 bolus; Site: left antecubital; mb8 22:00 Follow up: Response: No adverse reaction; IV Status: Completed infusion; IV Intake: ll3 1000ml 18:50 Drug: Zofran (Ondansetron) 4 mg Route: IVP; Site: left antecubital; mb8 18:53 Drug: morphine 4 mg Route: IVP; Infused Over: 4 mins; Site: left antecubital; mb8 20:25 Drug: Lidoderm Patch 5 % (700 mg/patch) 1 patches Route: Topical; Site: affected area; ll3 22:22 Follow up: Response: No adverse reaction ll3 21:36 Drug: Bentyl (dicyclomine) 20 mg Route: IM; Site: left gluteus; ll3 22:22 Follow up: Response: No adverse reaction; Marked relief of symptoms ll3 Disposition: 19:36 Co-signature as Attending Physician, Lawson BROWNE was immediately available on-site ms3 in the Emergency Department for consultation in the care of the patient.. Disposition Summary: 12/18/21 21:41 Discharge Ordered Location: Home pm1 Problem: new pm1 Symptoms: have improved pm1 Condition: Stable pm1 Diagnosis - Constipation, unspecified pm1 - Strain of muscle, fascia and tendon of lower back pm1 - Abdominal pain, unspecified pm1 Followup: pm1 - With: Emergency Department - When: As needed - Reason: Worsening of condition Followup: pm1 - With: Private Physician - When: 2 - 3 days - Reason: Recheck today's complaints, Continuance of care, Re-evaluation by your physician Discharge Instructions: - Discharge Summary Sheet pm1 - Abdominal Pain, Adult pm1 - Constipation, Adult pm1 - Muscle Strain pm1 Forms: - Medication Reconciliation Form pm1 - Thank You Letter pm1 - Antibiotic Education pm1 - Prescription Opioid Use pm1 Prescriptions: - Colace 100 mg Oral Tablet - take 1 tablet by ORAL route every 12 hours; 14 tablet; Refills: 0, Product pm1 Selection Permitted - Lidoderm 5 % Topical adhesive patch,medicated - apply 1 patch by TRANSDERMAL route once daily As needed 12 hours on and 12 pm1 hours off in a 24 hour period; 30 patch; Refills: 0, Product Selection Permitted - dicyclomine 20 mg Oral Tablet - take 1 tablet by ORAL route every 6 hours As needed; 20 tablet; Refills: 0, pm1 Product Selection Permitted Signatures: Dispatcher [employer] EDGabriel Elizondo, SHARI EDUCATIONAL ADVISOR pm1 Lawson Astorga DO DO ms3 Linda Sosa RN RN ld1 Cassie Butler RN RN ll3 Rell Islas RN RN mb8
[2021-12-19 00:16] VITALS: BP 136/71; O2SAT 99
[2021-12-19 00:17] VITALS: TEMP 97.9
== END 2021-12-18 22:23 | disposition home or self-care (01) ==
LOC: ER 18:12
DX: K59.00 Constipation, unspecified (principal); S39.012A Strain of muscle, fascia and tendon of lower back, initial encounter; I10 Essential (primary) hypertension
CPT/HCPCS: 96361; 85025; 36415; 81003; 83690; 80053; 74177; 96375; 96372; 96374; 99284; Q9967; J0500; J2001; J7030; J2405

== ENCOUNTER 2024-12-14 22:07 | Emergency (ER) | payer OTHER ==
[2024-12-14 23:10] LABS: Absolute Lymphocytes (CBC) 2.1 K/uL (0.7-4.9); Hematocrit 36.1 % (36.0-45.0); Hemoglobin 12.5 g/dL (12.0-15.0); MCH 31.7 pg (27.0-35.0); MCHC 34.7 g/dL (32.0-36.0); MCV 91.6 fL (80-100); MPV 7.6 fL (7.6-11.3); Nucleated RBC Absolute Count 0.0 (0-0); Nucleated Red Blood Cells % 0.1 % (0-0); RBC Red Blood Cell Count 3.94 M/uL (3.86-4.86); White Blood Count 6.40 thou/uL (4.3-10.9)
[2024-12-14 23:16] LABS: PT Prothrombin Time 13.1 SECONDS (10-13.0); Protime INR 1.16
[2024-12-14 23:25] LABS: Anion Gap 7.6 mEq/L (5.0-15.0); BUN Blood Urea Nitrogen 17.0 mg/dL (7-18); Glucose Level 122.0 mg/dL (74-106); NT PRO-BNP 68.0 pg/mL (<125); Potassium 3.6 mEq/L (3.5-5.1); Troponin High Sensitivity 8.0 pg/mL (<58.9)
--- NOTE | 2024-12-15 00:01 | ER ---
Nurse's Notes [facility] Name: Pari Nicole Age: 74 yrs Sex: Female : 1950 Arrival Date: 12/14/2024 Time: 22:07 Bed 7 Private MD: Diagnosis: Essential (primary) hypertension Presentation: 12/14 22:23 Chief complaint: Patient states: My blood pressure is been high for 2 weeks now and I rg5 have some on off chest pains. Coronavirus screen: Client denies travel out of the [place] in the last 14 days. Ebola Screen: Patient negative for fever greater than or equal to 101.5 degrees Fahrenheit, and additional compatible Ebola Virus Disease symptoms Patient denies exposure to infectious person. Patient denies travel to an Ebola-affected area in the 21 days before illness onset. Initial Sepsis Screen: Does the patient meet any 2 criteria? No. Patient's initial sepsis screen is negative. Does the patient have a suspected source of infection? No. Patient's initial sepsis screen is negative. Risk Assessment: Do you want to hurt yourself or someone else? Patient reports no desire to harm self or others. Onset of symptoms was December 14, 2024. 22:23 Method Of Arrival: Ambulatory rg5 22:23 Acuity: YELENA 3 rg5 Triage Assessment: 22:27 General: Appears in no apparent distress. uncomfortable, Behavior is calm, cooperative, rg5 appropriate for age. EENT: No deficits noted. Neuro: Level of Consciousness is awake, alert, obeys commands, Oriented to person, place, time, situation. Cardiovascular: Reports chest pain, Patient's skin is warm and dry. Respiratory: Airway is patent Respiratory effort is even, unlabored. GI: Abdomen is round. : No signs and/or symptoms were reported regarding the genitourinary system. Derm: Skin is intact, Skin is dry, Skin is normal. Musculoskeletal: Circulation, motion, and sensation intact. Range of motion: intact in all extremities. 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 - Infectious Disease History:: Denies. - Family history:: not pertinent. - Hospitalizations: : No recent hospitalization is reported. - Social history:: Smoking status: Patient denies any tobacco usage or history of. Screenin:11 [facility] ED Fall Risk Assessment (Adult) History of falling in the last 3 months, mf3 including since admission No falls in past 3 months (0 pts) Confusion or Disorientation No (0 pts) Intoxicated or Sedated No (0 pts) Impaired Gait No (0 pts) Mobility Assist Device Used No (0 pt) Altered Elimination No (0 pt) Score/Fall Risk Level 0 - 2 = Low Risk Oriented to surroundings. Abuse screen: Denies threats or abuse. Denies injuries from another. Nutritional screening: No deficits noted. Tuberculosis screening: No symptoms or risk factors identified. Never had TB. Assessment: 23:11 General: Appears in no apparent distress. comfortable, Behavior is calm, cooperative, mf3 appropriate for age. Pain: Denies pain. Neuro: Level of Consciousness is Oriented to. Cardiovascular: Capillary refill < 3 seconds. Respiratory: Airway is patent Trachea midline. GI:. Derm: Skin is intact, is healthy with good turgor, Skin is dry, Skin is pink, warm \T\ dry. Vital Signs: 22:23 BP 187 / 86; Pulse 89; Resp 18; Temp 98.9; Pulse Ox 98% on R/A; Weight 84.37 kg; Height rg5 5 ft. 5 in. ; 23:13 BP 175 / 86; Pulse 65; Resp 21; Pulse Ox 100% on R/A; mf3 23:30 BP 153 / 79; Pulse 61; rn 12/15 00:10 BP 154 / 75; Pulse 71; Resp 16; Pulse Ox 100% on R/A; mf3 12/14 22:23 Body Mass Index 30.95 (84.37 kg, 165.1 cm) rg5 Vitals: 12/14 23:11 Cardiac Rhythm Assessment Regular Sinus rhythm. mf3 [place] Coma Score: 23:11 Eye Response: spontaneous(4). Motor Response: obeys commands(6). Verbal Response: mf3 oriented(5). Total: 15. ED Course: 22:11 Patient arrived in ED. sj2 22:16 Kevin Fountain MD is Attending Physician. rn 22:26 Triage completed. rg5 22:27 Arm band placed on. rg5 22:49 Nela Whitehead, RN is Primary Nurse. mf3 22:52 XRAY Chest (1 view) In Process Unspecified. EDMS 23:11 Patient has correct armband on for positive identification. Bed in low position. Call mf3 light in reach. Side rails up X2. Provided Education on: pt educated on POC. 23:11 No provider procedures requiring assistance completed. Inserted saline lock: 20 gauge mf3 in left antecubital area, using aseptic technique. Blood collected. Flushed with 10 mL NS. 12/15 00:17 IV discontinued, intact, bleeding controlled, No redness/swelling at site. Pressure mf3 dressing applied. Administered Medications: No medications were administered Medication: 12/14 23:11 VIS not applicable for this client. 3 Outcome: 12/15 00:00 Discharge ordered by MD. rn 00:17 Discharged to home ambulatory, with family, [facility] 00:17 Condition: stable 00:17 Discharge instructions given to Instructed on discharge instructions, follow up and referral plans. Demonstrated understanding of instructions, follow-up care, 00:18 Patient left the ED. 3 Signatures: Dispatcher [employer] [facility] Kevin Fountain MD MD rn Gallardo, Rommel, RN RN [facility] Ángela Evans 2 Nela Whitehead RN RN 3
--- NOTE | 2024-12-15 00:01 | EDPHYS ---
Physician Documentation [facility] Name: Pari Nicole Age: 74 yrs Sex: Female : 1950 Arrival Date: 12/14/2024 Time: 22:07 Bed 7 Private MD: ED Physician Kevin Fountain HPI: 12/14 22:43 This 74 yrs old Black Female presents to ER via Ambulatory with complaints of High rn Blood Pressure - 174/103. 22:43 Patient reports hypertension, blood pressure has been high at night only for the last 2 rn weeks. Patient denies any chest pain but reports episodes of dyspnea when her blood pressure goes high. Denies any changes in medication. Currently asymptomatic, feels [id number] when she notices high blood pressure and senses it diffusely. No vision or speech problems. No chest pain. No abdominal pain or back pain.. 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 - Infectious Disease History:: Denies. - Family history:: not pertinent. - Hospitalizations: : No recent hospitalization is reported. - Social history:: Smoking status: Patient denies any tobacco usage or history of. ROS: 22:43 Constitutional: Negative for fever, chills, and weight loss, Neck: Negative for injury, rn pain, and swelling, Cardiovascular: Negative for chest pain, palpitations, and edema, Respiratory: Negative for shortness of breath, cough, wheezing, and pleuritic chest pain, Abdomen/GI: Negative for abdominal pain, nausea, vomiting, diarrhea, and constipation, Back: Negative for injury and pain, MS/Extremity: Negative for injury and deformity, Neuro: Negative for headache, weakness, numbness, tingling, and seizure, Exam: 22:43 Constitutional: This is a well developed, well nourished patient who is awake, alert, rn and in no acute distress. Ambulatory to room without assistance or difficulty Head/Face: Normocephalic, atraumatic. Cardiovascular: Regular rate and rhythm. No pulse deficits. Respiratory: No increased work of breathing, no retractions or nasal flaring. Abdomen/GI: Soft, non-tender MS/ Extremity: Pulses equal, no cyanosis. Neurovascular intact. Full, normal range of motion. Equal circumference. Neuro: Awake and alert, GCS 15, oriented to person, place, time, and situation. Cranial nerves II-XII grossly intact. Motor strength 5/5 in all extremities. Sensory grossly intact. Cerebellar exam normal. Normal gait. 23:12 ECG was reviewed by the Attending Physician. rn Vital Signs: 22:23 BP 187 / 86; Pulse 89; Resp 18; Temp 98.9; Pulse Ox 98% on R/A; Weight 84.37 kg; Height rg5 5 ft. 5 in. ; 23:13 BP 175 / 86; Pulse 65; Resp 21; Pulse Ox 100% on R/A; mf3 23:30 BP 153 / 79; Pulse 61; rn 12/15 00:10 BP 154 / 75; Pulse 71; Resp 16; Pulse Ox 100% on R/A; mf3 12/14 22:23 Body Mass Index 30.95 (84.37 kg, 165.1 cm) rg5 [place] Coma Score: 12/14 23:11 Eye Response: spontaneous(4). Motor Response: obeys commands(6). Verbal Response: mf3 oriented(5). Total: 15. MDM: 22:16 Medical Screening Exam initiated rn 23:58 Differential diagnosis: hypertensive crisis, Malignant HTN. Data reviewed: vital signs, rn nurses notes, lab test result(s), EKG, radiologic studies, plain films, and as a result, I will discharge patient. Independent interpretation of the following test(s) in the Emergency Department EKG: See my EKG interpretation above X-Ray: My interpretation is Chest x-ray image negative for pneumonia or pneumothorax per my interpretation. ekg monitor: rate is 61 beats/min, Rhythm is normal sinus rhythm, regular, with no ectopy, Interpretation: normal rate, normal rhythm. Care significantly affected by the following chronic conditions: Hypertension. Counseling: I had a detailed discussion with the patient and/or guardian regarding the historical points, exam findings, and any diagnostic results supporting the discharge/admit diagnosis, lab results, radiology results, the need for outpatient follow up, to return to the emergency department if symptoms worsen or persist or if there are any questions or concerns that arise at home. Counseling: I had a detailed discussion with the patient and/or guardian regarding the presence of at least one elevated blood pressure reading (>120/80) during this emergency department visit. Response to treatment: the patient's symptoms have markedly improved after treatment, the patient is now symptom free, and as a result, I will discharge patient. Special discussion: I have referred the patient to see his PCP for further evaluation of high blood pressure. I discussed with the patient/guardian in detail that at this point there is no indication for admission to the hospital. It is understood, however, that if the symptoms persist or worsen the patient needs to return immediately for re-evaluation. Based on the history and exam findings, there is no indication for further emergent testing or inpatient evaluation. I discussed with the patient/guardian the need to see the brand advocate for further evaluation of the symptoms. I discussed with the patient/guardian the need to see the primary care provider for further evaluation of the symptoms. ED course: No endorgan damage noted on workup. Patient has appointment with her brand advocate on Thursday to discuss blood pressure management. I have personally reviewed all of the results, including but not limited to blood tests and imaging deemed necessary to safely discharge this patient at this time. All results given to and printed out for patient. I personally went over all the results with the patient and answered all questions. Patient will follow-up with PCP and or specialist as discussed. Return precautions given and understood.. 12/14 21: Order name: Basic Metabolic Panel; Complete Time: 23:30 rn 12/14 Order name: CBC with Diff; Complete Time: :30 rn 12/14 21: Order name: NT PRO-BNP; Complete Time: 23:30 rn 12/14 21: Order name: PT-INR; Complete Time: :30 rn 12/14 21: Order name: Troponin HS; Complete Time: :30 rn 12/14 21: Order name: XRAY Chest (1 view) rn 12/14 21: Order name: EKG; Complete Time: : rn 12/14 Order name: Cardiac monitoring; Complete Time: 23:04 rn 12/14 Order name: EKG - Nurse/Tech; Complete Time: 23:04 rn 12/14 22:17 Order name: IV Saline Lock; Complete Time: 23: rn 12/14 21: Order name: Labs collected and sent; Complete Time: 23: rn 12/14 21: Order name: O2 Per Protocol; Complete Time: 23: rn 12/14 21: Order name: O2 Sat Monitoring; Complete Time: 23: rn EC:12 Rate is 67 beats/min. Rhythm is regular. QRS [place] is Normal. NE interval is normal. QRS rn interval is normal. QT interval is normal. No Q waves. T waves are Normal. No ST changes noted. Clinical impression: Normal ECG. Interpreted by me. Reviewed by me. 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 EDMS EDMS 22:17 22:17 CBC+H.LAB.BRZ ordered. EDMS EDMS 22:17 22:17 PROBNP+C.LAB.BRZ ordered. EDMS EDMS 22:17 22:17 PROTIME (+INR)+COAG.LAB.BRZ ordered. EDMS EDMS 22:17 22:17 Troponin High Sensitivity+C.LAB.BRZ ordered. EDMS EDMS
--- NOTE | 2024-12-15 01:15 | RAD REPORT ---
EXAM DESCRIPTION: XR CHEST 1 VIEW 12/14/2024 11:19 PM CDT CLINICAL HISTORY: 74 years, Female, HTN. COMPARISON: XR Chest 12/12/2024 (report only). FINDINGS: 1 view of the chest (AP portable projection) was obtained. Prior films were compared. There is norm al lung volume. Mediastinum: The cardiomediastinal silhouette appears normal in size and shape. Lungs: No areas of consolidations or masses are identified. Heart: The heart is normal in size. Thoracic aorta: The thoracic aorta demonstrate to be mildly tortuous. Pulmonary vasculature: The pulmonary vasculature is normal in distribution. Pleura: The costophrenic angles demonstrate to be sharp. Osseous structures: The bony structures demonstrate minimal early degenerative changes bilateral [place] ohumeral joints and AC joints. Other: External device/brassiere within the [id number] limits diagnosis. IMPRESSION: No acute cardiopulmonary disease seen. Electronically signed by: Luis Alfredo Zacarias MD 12/14/2024 11:43 PM CDT RP Due to temporary technical issues with the [email or web address] reporting system, reports are being laura d by the in-house radiologist without review as a courtesy to ensure prompt reporting the interpreting radiologist is fully responsible for the content of the report. Transcribed Date/Time: 12/15/2024 1:15 AM
[2024-12-15 03:07] VITALS: TEMP 98.9
[2024-12-15 03:08] VITALS: O2SAT 100
[2024-12-15 03:10] VITALS: BP 154/75
== END 2024-12-15 00:18 | disposition home or self-care (01) ==
LOC: ER 22:07
DX: I10 Essential (primary) hypertension (principal)
CPT/HCPCS: 36415; 71045; 80048; 83880; 84484; 85025; 85610; 93005; 99284